=== PATIENT | male | born 1985 | race Caucasian/White ===

== ENCOUNTER 2016-08-05 17:27 | Emergency (ER) | payer MEDICAID ==
[2016-08-05 17:48] VITALS: BP 171/98
[2016-08-05 18:04] LABS: Urine Drugs of Abuse Note Disclamer
[2016-08-05 18:24] LABS: Bilirubin,Urine NEG (Negative); Blood,Urine SM (Negative); Ketones,Urine 80 mg/dL (Negative); Leukocyte Esterase,Urine NEG (Negative); Mucus,Urine 2+ /HPF; Nitrite,Urine NEG (Negative); Protein,Urine <15 mg/dL mg/dL (Negative); Urobilinogen,Urine < 2.0 mg/dL (<2.0); WBC,Urine < 1.0 /HPF (0.0-6.0)
[2016-08-05 20:53] LABS: Basophils % (Auto) 0.8 % (0.0-1.8); Eosinophils % (Auto) 0.4 % (0.0-4.3); Hematocrit 42.4 % (35.5-45.6); Hemoglobin 14.6 gm/dl (11.8-15.2); Mean Corpuscular HGB Conc 34 % (32-34); Mean Corpuscular Hemoglobin 32 pg (28-32); Mean Corpuscular Volume 93 fl (84-94); Platelet Count 250 K/mm3 (140-440); Red Blood Count 4.55 M/mm3 (3.65-5.03); Red Cell Distribution Width 14.4 % (13.2-15.2); White Blood Count 15.2 K/mm3 (4.5-11.0)
[2016-08-05 21:07] LABS: Anion Gap 25 mmol/L; Blood Urea Nitrogen 16 mg/dL (9-20); Calcium 9.2 mg/dL (8.4-10.2); Carbon Dioxide 20 mmol/L (22-30); Glucose 82 mg/dL (75-100); Potassium 3.9 mmol/L (3.6-5.0); Sodium 135 mmol/L (137-145)
--- NOTE | 2016-08-05 22:32 | Emergency Department Report ---
HPI - General Chief Complaint: Psych Time Seen by Provider: 08/05/16 22:17 - HPI HPI: The patient is a 30-year-old male who presents for evaluation of mental health. The patient reports sadness for the past one to 2 weeks, mild to moderate in severity, waxing and waning, constant the past one day. The patient denies suicidal ideations. The patient also denies fever, headache, unexplained weight loss or weight gain, heat or cold intolerance, skin, hair, or nail changes, neuro deficits, homicidal ideations, or auditory or visual hallucinations. ED Past Medical Hx - Past Medical History Hx Psychiatric Treatment: Yes - Surgical History Past Surgical History?: No - Social History Smoking Status: Current Every Day Smoker Substance Use Type: None ED Review of Systems ROS: Stated complaint: MH EVAL Other details as noted in HPI Constitutional: denies: fever ENT: denies: throat or neck pain Respiratory: denies: cough, shortness of breath Cardiovascular: denies: chest pain Endocrine: denies unexplained weight loss or gain Gastrointestinal: denies: abdominal pain, nausea Genitourinary: denies: dysuria Musculoskeletal: denies: leg swelling Skin: denies: rash Neurological: denies: headache Hematological/Lymphatic: denies: easy bleeding or easy bruising Psych: denies hopelessness Physical Exam - Physical Exam Vital Signs: Vital Signs 08/05/16 17:45 Temperature 98.4 F Pulse Rate 125 H Respiratory 20 Rate Blood Pressure 171/98 O2 Sat by Pulse 99 Oximetry Physical Exam: General: well-nourished, well-developed, no acute distress Head: Normocephalic, atraumatic Eyes: normal sclera ENT: Mucous membranes are pale and dry Neck: trachea midline, neck supple, No neck stiffness, no cervical adenopathy Respiratory: Breath sounds equal bilaterally, no wheezing, rales, or rhonchi Cardio: S1 and S2 present, no murmurs, rubs, gallops, capillary refill is delayed Abdomen: Normoactive bowel sounds, soft abdomen, no rigidity, no guarding or rebound tenderness Chest WALL/Back: No tenderness to palpation of the chest wall, no CVA tenderness with percussion Musc: No pitting edema Skin: No rash Neuro: no facial drooping, normal speech Psych: Normal affect, depressed mood, normal insight, competent, no hallucinations ED Course Vital Signs 08/05/16 17:45 Temperature 98.4 F Pulse Rate 125 H Respiratory 20 Rate Blood Pressure 171/98 O2 Sat by Pulse 99 Oximetry ED Medical Decision Making - Lab Data Result diagrams: 08/05/16 20:36 08/05/16 20:36 - Medical Decision Making The patient was seen and examined by myself. The patient is placed on a front desk monitor and continuous pulse ox. On initial evaluation, the patient was found to be in no distress. The patient declines IV fluid resuscitation for treatment of dehydration. Labs are obtained. Lab results are grossly unremarkable. The patient is medically clear. Mental health is consulted. Mental health evaluates the patient and agrees that the patient is negative for findings concerning for risk of harm to herself. The patient was reevaluated and reported that their symptoms were markedly improved. The patient is stable for discharge with outpatient follow-up. The patient is given follow-up and return instructions. The patient expressed understanding and agreed with the plan. The patient is discharged in stable condition. Critical care attestation.: If time is entered above; I have spent that time in minutes in the direct care of this critically ill patient, excluding procedure time. ED Disposition Clinical Impression: Dehydration Depression Qualifiers: Depression Type: unspecified Qualified Code(s): F32.9 - Major depressive disorder, single episode, unspecified Disposition: DISCHARGED TO HOME OR SELFCARE Is pt being admited?: No Does the pt Need Aspirin: No Condition: Stable Time of Disposition: 23:13
== END 2016-08-06 02:02 | disposition home or self-care (01) ==
LOC: ED 17:27
DX: F32.9 Major depressive disorder, single episode, unspecified (principal); E86.0 Dehydration; F17.200 Nicotine dependence, unspecified, uncomplicated
CPT/HCPCS: 36415; 80048; 80307; 81001; 85025; 99284; G0480; 80320

== ENCOUNTER 2016-10-23 21:53 | Emergency (ER) | payer MEDICAID ==
[2016-10-23 23:28] LABS: Basophils % (Auto) 1.7 % (0.0-1.8); Eosinophils % (Auto) 1.2 % (0.0-4.3); Hematocrit 44.2 % (35.5-45.6); Hemoglobin 15.1 gm/dl (11.8-15.2); Mean Corpuscular HGB Conc 34 % (32-34); Mean Corpuscular Hemoglobin 33 pg (28-32); Mean Corpuscular Volume 95 fl (84-94); Platelet Count 207 K/mm3 (140-440); Red Blood Count 4.64 M/mm3 (3.65-5.03); Red Cell Distribution Width 14.3 % (13.2-15.2)
[2016-10-23 23:31] LABS: Anion Gap 25 mmol/L; BUN/Creatinine Ratio 18.88; Blood Urea Nitrogen 17 mg/dL (9-20); Calcium 9.6 mg/dL (8.4-10.2); Carbon Dioxide 23 mmol/L (22-30); Chloride 92.2 mmol/L (98-107); Glucose 108 mg/dL (75-100); Potassium 3.8 mmol/L (3.6-5.0); Sodium 136 mmol/L (137-145)
[2016-10-23 23:38] LABS: Urine Drugs of Abuse Note Disclamer
[2016-10-23 23:54] LABS: Bilirubin,Urine NEG (Negative); Blood,Urine SM (Negative); Ketones,Urine 80 mg/dL (Negative); Leukocyte Esterase,Urine NEG (Negative); Mucus,Urine 3+ /HPF; Nitrite,Urine NEG (Negative)
--- NOTE | 2016-10-24 00:15 | Emergency Department Report ---
HPI - General Chief Complaint: Psych Time Seen by Provider: 10/24/16 00:00 - HPI HPI: Room 16 The patient is a 30-year-old male presenting with a chief complaint of suicidal ideation. The patient states for 3 days he's had suicidal ideation. The patient states 2 days ago he took 15 pills of one of his prescription medications but he states he cannot remember the name. The patient acknowledges having thoughts of wanting to jump off a bridge. Patient denies previous attempts at harm himself before now. Patient currently denies any complaints. Patient states he now feels "fine." Location: Mental state Duration: 3 days Quality: suicidal Severity: Severe Modifying factors: [see above] Context: [see above] Mode of transportation: [not driving] ED Past Medical Hx - Past Medical History Previous Medical History?: Yes Hx Psychiatric Treatment: Yes (depression) - Surgical History Past Surgical History?: No - Family History Family history: no significant - Social History Smoking Status: Never Smoker Substance Use Type: None - Medications Home Medications: Home Medications Medication Instructions Recorded Confirmed Last Taken Type Unobtainable 10/23/16 10/23/16 Unknown History ED Review of Systems ROS: Stated complaint: MH/SUICIDAL THOUGHTS Other details as noted in HPI Comment: All other systems reviewed and negative Constitutional: denies: chills, fever Eyes: denies: eye pain, eye discharge, vision change ENT: denies: ear pain, throat pain Respiratory: denies: cough, shortness of breath, wheezing Cardiovascular: denies: chest pain, palpitations Endocrine: no symptoms reported Gastrointestinal: denies: abdominal pain, nausea, diarrhea Genitourinary: denies: urgency, dysuria Musculoskeletal: denies: back pain, joint swelling, arthralgia Skin: denies: rash, lesions Neurological: denies: headache, weakness, paresthesias Psychiatric: depression, suicidal thoughts. denies: anxiety Hematological/Lymphatic: denies: easy bleeding, easy bruising Physical Exam - Physical Exam Vital Signs: Vital Signs 10/23/16 22:16 Temperature 98.6 F Pulse Rate 130 H Respiratory 12 Rate Blood Pressure 146/101 O2 Sat by Pulse 95 Oximetry Physical Exam: GENERAL: The patient is well-developed well-nourished male lying on stretcher not appearing to be in acute distress. [] HEENT: Normocephalic. Atraumatic. Extraocular motions are intact. Patient has moist mucous membranes. NECK: Supple. Trachea midline CHEST/LUNGS: Clear to auscultation. There is no respiratory distress noted. HEART/CARDIOVASCULAR: Regular. There is no tachycardia. There is no gallop rub or murmur. ABDOMEN: Abdomen is soft, nontender. Patient has normal bowel sounds. There is no abdominal distention. SKIN: There is no rash. There is no edema. There is no diaphoresis. NEURO: The patient is awake, alert, and oriented. The patient is cooperative. The patient has normal speech MUSCULOSKELETAL: There is no evidence of acute injury. ED Course Vital Signs 10/23/16 22:16 Temperature 98.6 F Pulse Rate 130 H Respiratory 12 Rate Blood Pressure 146/101 O2 Sat by Pulse 95 Oximetry ED Medical Decision Making - Lab Data Result diagrams: 10/23/16 22:32 10/23/16 22:32 Laboratory Tests 10/23/16 10/23/16 10/23/16 22:32 22:32 22:32 WBC 13.0 H RBC 4.64 Hgb 15.1 Hct 44.2 MCV 95 H MCH 33 H MCHC 34 RDW 14.3 Plt Count 207 Lymph % (Auto) 10.1 L [place] % (Auto) 10.0 H Eos % (Auto) 1.2 Baso % (Auto) 1.7 Lymph # 1.3 [place] # 1.3 H Eos # 0.2 Baso # 0.2 H Seg Neutrophils % 77.0 H Seg Neutrophils # 10.0 H Sodium 136 L Potassium 3.8 Chloride 92.2 L Carbon Dioxide 23 Anion Gap 25 BUN 17 Creatinine 0.9 Estimated GFR > 60 BUN/Creatinine Ratio 18.88 Glucose 108 H Calcium 9.6 Urine Color Urine Turbidity Urine pH Ur Specific [place] Urine Protein Urine Glucose (UA) Urine Ketones Urine Blood Urine Nitrite Urine Bilirubin Urine Urobilinogen Ur Leukocyte Esterase Urine WBC (Auto) Urine RBC (Auto) Hyaline Casts Urine Mucus Salicylates Urine Opiates Screen Urine Methadone Screen Acetaminophen Ur Barbiturates Screen Ur Phencyclidine Scrn Ur Amphetamines Screen U Benzodiazepines Scrn Urine Cocaine Screen U Marijuana (THC) Screen Drugs of Abuse Note Plasma/Serum Alcohol < 0.01 10/23/16 10/23/16 10/23/16 22:32 22:32 23:38 WBC RBC Hgb Hct MCV MCH MCHC RDW Plt Count Lymph % (Auto) [place] % (Auto) Eos % (Auto) Baso % (Auto) Lymph # [place] # Eos # Baso # Seg Neutrophils % Seg Neutrophils # Sodium Potassium Chloride Carbon Dioxide Anion Gap BUN Creatinine Estimated GFR BUN/Creatinine Ratio Glucose Calcium Urine Color Meme Urine Turbidity Clear Urine pH 6.0 Ur Specific [place] 1.028 Urine Protein 30 mg/dl Urine Glucose (UA) Neg Urine Ketones 80 Urine Blood Sm Urine Nitrite Neg Urine Bilirubin Neg Urine Urobilinogen 2.0 Ur Leukocyte Esterase Neg Urine WBC (Auto) 4.0 Urine RBC (Auto) 6.0 Hyaline Casts 3 Urine Mucus 3+ Salicylates < 0.3 L Urine Opiates Screen Urine Methadone Screen Acetaminophen < 15.0 Ur Barbiturates Screen Ur Phencyclidine Scrn Ur Amphetamines Screen U Benzodiazepines Scrn Urine Cocaine Screen U Marijuana (THC) Screen Drugs of Abuse Note Plasma/Serum Alcohol 10/23/16 23:38 WBC RBC Hgb Hct MCV MCH MCHC RDW Plt Count Lymph % (Auto) [place] % (Auto) Eos % (Auto) Baso % (Auto) Lymph # [place] # Eos # Baso # Seg Neutrophils % Seg Neutrophils # Sodium Potassium Chloride Carbon Dioxide Anion Gap BUN Creatinine Estimated GFR BUN/Creatinine Ratio Glucose Calcium Urine Color Urine Turbidity Urine pH Ur Specific [place] Urine Protein Urine Glucose (UA) Urine Ketones Urine Blood Urine Nitrite Urine Bilirubin Urine Urobilinogen Ur Leukocyte Esterase Urine WBC (Auto) Urine RBC (Auto) Hyaline Casts Urine Mucus Salicylates Urine Opiates Screen Presumptive negative Urine Methadone Screen Presumptive negative Acetaminophen Ur Barbiturates Screen Presumptive negative Ur Phencyclidine Scrn Presumptive negative Ur Amphetamines Screen Presumptive positive U Benzodiazepines Scrn Presumptive negative Urine Cocaine Screen Presumptive negative U Marijuana (THC) Screen Presumptive negative Drugs of Abuse Note Disclamer Plasma/Serum Alcohol - EKG Data -: EKG Interpreted by Ct EKG shows normal: sinus rhythm Rate: tachycardia (115 bpm) - EKG Data When compared to previous EKG there are: previous EKG unavailable Interpretation: other (no ischemic changes seen. QRS 84 ms.) - Differential Diagnosis suicidal ideation Critical care attestation.: If time is entered above; I have spent that time in minutes in the direct care of this critically ill patient, excluding procedure time. ED Disposition Clinical Impression: Suicidal ideation Disposition: DC/TX PSY HOSP/PSY UNIT Is pt being admited?: No Does the pt Need Aspirin: No Condition: Serious Time of Disposition: 00:15 (awaiting acceptance)
[2016-10-24 10:05] VITALS: BP 130/76
--- NOTE | 2016-10-24 17:32 | History and Physical Report ---
INITIAL PSYCHIATRIC CONSULTATION REASON FOR CONSULT: The patient reported some suicidal ideations. HISTORY OF PRESENT ILLNESS: The patient is a 30-year-old male who presented to the ED threatening to jump off the bridge. He reports a recent argument with his mother. He has an unspecified mental illness as he was unable to provide that information. He was a poor historian. During examination, he appeared to be disorganized, but denied any suicidal and homicidal thoughts at the current time. However, he later reported some suicidal ideations, but did not have plan. He was not responding to any internal stimuli. He denies auditory and visual hallucinations. UDS was positive for amphetamines, but he denied any substance use as well. He is currently on a 1013 for suicidal ideations and a plan to jump off the bridge. According to the report, he is disabled. He reports living with his mother. He has a prior history of suicide attempts. However, when inquired about his past history of suicide attempts he denied having a prior history of suicide attempts. He denies any recent significant Loss. Minimal responses; however, upon admission, he was noted to be hopeless and helpless using amphetamines, blunted affect pretty much. Speech was clear and coherent, but very brief, short, very minimal responses. Poor historian like I stated, appeared to be a bit disorganized. Flat affect. Mood is congruent to the affect. Right now, he is calm in his home. He is cooperative, but only provides minimal response when trying to examine him. He is alert and oriented to person, place, time and situation as well. His mood appeared to be kind of depressed. His concentration was impaired. Memory was limited right now. Insight and judgment appear to be poor at the current time. ASSESSMENT: Psychosis, not otherwise specified. PLAN: To continue with the 1013 as ordered, pursue inpatient psych placement. Continue with the current regimen as prescribed and continue to follow during hospitalization. Psychiatry will continue to follow him on 10/25/2016. JOB# [id number] ADAM/RAN
== END 2016-10-24 19:03 ==
LOC: EEVIPCON 21:53 → ED 21:53
DX: R45.851 Suicidal ideations (principal); F32.9 Major depressive disorder, single episode, unspecified
CPT/HCPCS: 36415; 80048; 80307; 81001; 85025; 93005; 93010; 99285; G0480; 80320

== ENCOUNTER 2016-12-23 20:47 | Emergency (ER) | payer MEDICAID ==
[2016-12-23 21:28] LABS: Basophils % (Auto) 0.4 % (0.0-1.8); Eosinophils % (Auto) 0.5 % (0.0-4.3); Hematocrit 42.3 % (35.5-45.6); Hemoglobin 15.1 gm/dl (11.8-15.2); Mean Corpuscular HGB Conc 36 % (32-34); Mean Corpuscular Hemoglobin 33 pg (28-32); Mean Corpuscular Volume 91 fl (84-94); Platelet Count 306 K/mm3 (140-440); Red Blood Count 4.64 M/mm3 (3.65-5.03); Red Cell Distribution Width 13.5 % (13.2-15.2); White Blood Count 10.3 K/mm3 (4.5-11.0)
[2016-12-23] MEDS ORDERED: NACL 0.9% 1000 ML 1,000 ML ONE (21:41)
[2016-12-23] MEDS ORDERED: VALIUM IV ONE (21:42)
[2016-12-23] MEDS ORDERED: NACL 0.9% 1000 ML 2,000 ML IV ONE (21:42)
[2016-12-23 21:43] LABS: Anion Gap 22 mmol/L; Blood Urea Nitrogen 15 mg/dL (9-20); Calcium 9.9 mg/dL (8.4-10.2); Carbon Dioxide 25 mmol/L (22-30); Chloride 89.9 mmol/L (98-107); Glucose 116 mg/dL (75-100); Potassium 3.2 mmol/L (3.6-5.0); Sodium 134 mmol/L (137-145)
--- NOTE | 2016-12-23 21:43 | Emergency Department Report ---
ED General Adult HPI - General Chief complaint: Psych Stated complaint: HEARING VOICES Time Seen by Provider: 12/23/16 21:33 Source: patient, RN notes reviewed, old records reviewed Mode of arrival: Ambulatory Limitations: No Limitations - History of Present Illness Initial comments: This is a 31-year-old male. He is previously unknown to me. The patient has a past medical history of methamphetamine use and depression. The patient presents to the ER today requesting psychiatric evaluation. He is not homicidal or suicidal. He denies access to guns firearms. He reports that he is experiencing audio and visual hallucinations. He reports last consuming methamphetamines approximately one month ago. Symptoms are constant for the past days. they do not have exacerbating or relieving factors. No other complaints. Specifically no headache, neck pain, chest pain, abdominal pain or shortness of breath, no irritative or obstructive urinary symptoms. -: Gradual Consistency: constant Improves with: none Worsens with: none Associated Symptoms: denies other symptoms - Related Data Home Medications Medication Instructions Recorded Confirmed Last Taken Unobtainable 10/23/16 12/23/16 Unknown Allergies Allergy/AdvReac Type Severity Reaction Status Date / Time No Known Allergies Allergy Unverified 08/05/16 17:45 ED Review of Systems ROS: Stated complaint: HEARING VOICES Other details as noted in HPI Constitutional: denies: fever, malaise Eyes: denies: vision change ENT: denies: epistaxis Respiratory: denies: cough Cardiovascular: denies: chest pain Gastrointestinal: denies: abdominal pain Genitourinary: denies: urgency, dysuria Musculoskeletal: denies: back pain, arthralgia, myalgia Skin: denies: rash, lesions Neurological: denies: headache, weakness, numbness, paresthesias Psychiatric: auditory hallucinations, visual hallucinations. denies: homicidal thoughts, suicidal thoughts ED Past Medical Hx - Past Medical History Previous Medical History?: Yes Hx Hypertension: No Hx CVA: No Hx Heart Attack/AMI: No Hx Congestive Heart Failure: No Hx Diabetes: No Hx Deep Vein Thrombosis: No Hx Pulmonary Embolism: No Hx GERD: No Hx Liver Disease: No Hx Renal Disease: No Hx Sickle Cell Disease: No Hx Arthritis: No Hx Headaches / Migraines: No Hx Seizures: No Hx Kidney Stones: No Hx Psychiatric Treatment: Yes (depression) Hx Asthma: No Hx COPD: No Hx Tuberculosis: No Hx Dementia: No Hx HIV: No - Surgical History Past Surgical History?: No Hx Coronary Stent: No Hx Open Heart Surgery: No Hx Pacemaker: No Hx Internal Defibrillator: No Hx Cholecystectomy: No Hx Appendectomy: No Hx Breast Surgery: No - Social History Smoking Status: Never Smoker Substance Use Type: None - Medications Home Medications: Home Medications Medication Instructions Recorded Confirmed Last Taken Type Unobtainable 10/23/16 12/23/16 Unknown History ED Physical Exam - General Limitations: No Limitations General appearance: alert, anxious - Head Head exam: Present: atraumatic, normocephalic - Eye Eye exam: Present: normal appearance, PERRL, EOMI, other (pupils are dilated but constrict to light bilaterally). Absent: nystagmus - ENT ENT exam: Present: normal exam, normal orophraynx, mucous membranes moist, normal external ear exam - Neck Neck exam: Present: normal inspection, full ROM. Absent: tenderness, meningismus - Respiratory Respiratory exam: Present: normal lung sounds bilaterally. Absent: respiratory distress, wheezes, rales, rhonchi, stridor, chest wall tenderness - Cardiovascular Cardiovascular Exam: Present: normal rhythm, tachycardia, normal heart sounds. Absent: systolic murmur, diastolic murmur, rubs, gallop - GI/Abdominal GI/Abdominal exam: Present: soft, normal bowel sounds. Absent: distended, tenderness, guarding, rebound, rigid, pulsatile mass, hernia - Rectal Rectal exam: Present: deferred - Extremities Exam Extremities exam: Present: normal inspection, full ROM, normal capillary refill. Absent: tenderness, pedal edema, joint swelling, calf tenderness - Back Exam Back exam: Present: normal inspection, full ROM. Absent: tenderness, CVA tenderness (R), CVA tenderness (L), muscle spasm, paraspinal tenderness, vertebral tenderness - Neurological Exam Neurological exam: Present: alert, oriented X3, normal gait, other (Extraocular movements intact. Tongue midline. No facial droop. Facial sensation intact to light touch in the V1, V2, V3 distribution bilaterally. 5 and 5 strength in 4 extremities.. Sensation is intact to light touch in 4 extremities.). Absent : motor sensory deficit - Psychiatric Psychiatric exam: Present: flat affect. Absent: homicidal ideation, suicidal ideation - Skin Skin exam: Present: warm, dry, intact, normal color. Absent: rash ED Course Vital Signs 07/19/17 07/19/17 07/19/17 20:54 21:41 21:42 Temperature 98.4 F Pulse Rate 130 H 124 H Respiratory 18 31 H 22 Rate Blood Pressure 152/96 Blood Pressure [Right] O2 Sat by Pulse 98 95 98 Oximetry 12/23/16 12/23/16 12/23/16 22:00 22:30 23:00 Temperature Pulse Rate 105 H 110 H 109 H Respiratory 28 H 23 20 Rate Blood Pressure 134/84 147/97 147/97 Blood Pressure 134/84 [Right] O2 Sat by Pulse 96 97 99 Oximetry 12/23/16 12/24/16 12/24/16 23:30 00:04 00:10 Temperature Pulse Rate 109 H 111 H Respiratory 25 H 14 Rate Blood Pressure 137/89 137/89 137/89 Blood Pressure [Right] O2 Sat by Pulse 97 97 95 Oximetry 12/24/16 12/24/16 12/24/16 00:30 01:00 01:18 Temperature Pulse Rate 102 H 108 H 99 H Respiratory 21 15 20 Rate Blood Pressure 137/89 143/80 Blood Pressure 143/80 [Right] O2 Sat by Pulse 97 95 97 Oximetry 12/24/16 12/24/16 12/24/16 01:30 02:00 02:30 Temperature Pulse Rate 105 H 96 H 94 H Respiratory 24 20 26 H Rate Blood Pressure 143/80 143/80 143/80 Blood Pressure [Right] O2 Sat by Pulse 96 97 96 Oximetry 12/24/16 03:00 Temperature Pulse Rate 96 H Respiratory 17 Rate Blood Pressure 143/80 Blood Pressure [Right] O2 Sat by Pulse 97 Oximetry - Reevaluation(s) Reevaluation #1: 12/23/16 22:41 differential diagnosis: Mood disorder, methamphetamine intoxication, nonspecific psychosis Assessment and plan: 31-year-old male with reported audio and visual hallucinations. He is alert and oriented 3, has a GCS of 15, with an NIH score of 0. He is clinically sober at this time, and walks with a steady gait, and he is neither homicidal nor suicidal. There is no indication to 1013 the patient. He is tachycardic, his pupils are dilated and he is somewhat sweaty. His clinical picture is consistent with sympathomimetic toxicity. He indicates that he is interested in voluntary placement in a psychiatric facility. He is given 2 L of IV fluid, and diazepam, which greatly improved his tachycardia and symptoms. He is currently sleeping comfortably. CK in the , not consistent with rhabdo, as it is less than 5000. His compartments are soft. Additional IV fluids are ordered, repeat CK is ordered. Mental health consult is ordered. Reevaluation #2: 12/24/16 05:24 Patient reevaluated by myself multiple times while in the department. He is pleasant, calm and cooperative. His creatinine kinase continues to decrease. His tachycardia has resolved. Patient is still interested in voluntary placement for psychiatric reasons. At this point in time, I see no immediate medical contraindication to psychiatric admission/evaluation/consultation. The crisis team is informed. ED Medical Decision Making - Lab Data Result diagrams: 12/23/16 21:08 12/23/16 21:08 Vital Signs 12/23/16 12/23/16 12/23/16 20:54 21:41 21:42 Temperature 98.4 F Pulse Rate 130 H 124 H Respiratory 18 31 H 22 Rate Blood Pressure 152/96 Blood Pressure [Right] O2 Sat by Pulse 98 95 98 Oximetry 12/23/16 22:00 Temperature Pulse Rate 105 H Respiratory 28 H Rate Blood Pressure 134/84 Blood Pressure 134/84 [Right] O2 Sat by Pulse 96 Oximetry Lab Results 12/23/16 12/23/16 12/23/16 Range/Units 21:08 21:08 21:08 WBC 10.3 (4.5-11.0) K/mm3 RBC 4.64 (3.65-5.03) M/mm3 Hgb 15.1 (11.8-15.2) gm/dl Hct 42.3 (35.5-45.6) % MCV 91 (84-94) fl MCH 33 H (28-32) pg MCHC 36 H (32-34) % RDW 13.5 (13.2-15.2) % Plt Count 306 (140-440) K/mm3 Lymph % (Auto) 12.7 L (13.4-35.0) % [place] % (Auto) 7.7 H (0.0-7.3) % Eos % (Auto) 0.5 (0.0-4.3) % Baso % (Auto) 0.4 (0.0-1.8) % Lymph # 1.3 (1.2-5.4) K/mm3 [place] # 0.8 (0.0-0.8) K/mm3 Eos # 0.1 (0.0-0.4) K/mm3 Baso # 0.0 (0.0-0.1) K/mm3 Seg Neutrophils % 78.7 H (40.0-70.0) % Seg Neutrophils # 8.1 H (1.8-7.7) K/mm3 PT (12.2-14.9) Sec. INR (0.87-1.13) Sodium 134 L (137-145) mmol/L Potassium 3.2 L (3.6-5.0) mmol/L Chloride 89.9 L (98-107) mmol/L Carbon Dioxide 25 (22-30) mmol/L Anion Gap 22 mmol/L BUN 15 (9-20) mg/dL Creatinine 1.0 (0.8-1.5) mg/dL Estimated GFR > 60 ml/min BUN/Creatinine Ratio 15.00 % Glucose 116 H (75-100) mg/dL Calcium 9.9 (8.4-10.2) mg/dL Total Creatine Kinase (55-170) units/L Troponin T (0.00-0.029) ng/mL TSH (0.270-4.200) mlU/mL Salicylates (2.8-20.0) mg/dL Acetaminophen (10.0-30.0) ug/mL Plasma/Serum Alcohol < 0.01 (0-0.07) gm% 12/23/16 12/23/16 12/23/16 Range/Units 21:45 21:45 21:45 WBC (4.5-11.0) K/mm3 RBC (3.65-5.03) M/mm3 Hgb (11.8-15.2) gm/dl Hct (35.5-45.6) % MCV (84-94) fl MCH (28-32) pg MCHC (32-34) % RDW (13.2-15.2) % Plt Count (140-440) K/mm3 Lymph % (Auto) (13.4-35.0) % [place] % (Auto) (0.0-7.3) % Eos % (Auto) (0.0-4.3) % Baso % (Auto) (0.0-1.8) % Lymph # (1.2-5.4) K/mm3 [place] # (0.0-0.8) K/mm3 Eos # (0.0-0.4) K/mm3 Baso # (0.0-0.1) K/mm3 Seg Neutrophils % (40.0-70.0) % Seg Neutrophils # (1.8-7.7) K/mm3 PT (12.2-14.9) Sec. INR (0.87-1.13) Sodium (137-145) mmol/L Potassium (3.6-5.0) mmol/L Chloride (98-107) mmol/L Carbon Dioxide (22-30) mmol/L Anion Gap mmol/L BUN (9-20) mg/dL Creatinine (0.8-1.5) mg/dL Estimated GFR ml/min BUN/Creatinine Ratio % Glucose (75-100) mg/dL Calcium (8.4-10.2) mg/dL Total Creatine Kinase 2613 H (55-170) units/L Troponin T (0.00-0.029) ng/mL TSH (0.270-4.200) mlU/mL Salicylates < 0.3 L (2.8-20.0) mg/dL Acetaminophen < 15.0 (10.0-30.0) ug/mL Plasma/Serum Alcohol (0-0.07) gm% 12/23/16 12/23/16 12/23/16 Range/Units 21:45 21:45 21:45 WBC (4.5-11.0) K/mm3 RBC (3.65-5.03) M/mm3 Hgb (11.8-15.2) gm/dl Hct (35.5-45.6) % MCV (84-94) fl MCH (28-32) pg MCHC (32-34) % RDW (13.2-15.2) % Plt Count (140-440) K/mm3 Lymph % (Auto) (13.4-35.0) % [place] % (Auto) (0.0-7.3) % Eos % (Auto) (0.0-4.3) % Baso % (Auto) (0.0-1.8) % Lymph # (1.2-5.4) K/mm3 [place] # (0.0-0.8) K/mm3 Eos # (0.0-0.4) K/mm3 Baso # (0.0-0.1) K/mm3 Seg Neutrophils % (40.0-70.0) % Seg Neutrophils # (1.8-7.7) K/mm3 PT 13.4 (12.2-14.9) Sec. INR 1.03 (0.87-1.13) Sodium (137-145) mmol/L Potassium (3.6-5.0) mmol/L Chloride (98-107) mmol/L Carbon Dioxide (22-30) mmol/L Anion Gap mmol/L BUN (9-20) mg/dL Creatinine (0.8-1.5) mg/dL Estimated GFR ml/min BUN/Creatinine Ratio % Glucose (75-100) mg/dL Calcium (8.4-10.2) mg/dL Total Creatine Kinase (55-170) units/L Troponin T < 0.010 (0.00-0.029) ng/mL TSH 0.803 (0.270-4.200) mlU/mL Salicylates (2.8-20.0) mg/dL Acetaminophen (10.0-30.0) ug/mL Plasma/Serum Alcohol (0-0.07) gm% Critical care attestation.: If time is entered above; I have spent that time in minutes in the direct care of this critically ill patient, excluding procedure time. ED Disposition Clinical Impression: Mood disorder Disposition: DC/TX-65 PSY HOSP/PSY UNIT Is pt being admited?: No Does the pt Need Aspirin: No Condition: Good Referrals: PRIMARY CARE, [Primary Care Provider] - 3-5 Days
[2016-12-23 22:12] LABS: INR 1.03 (0.87-1.13)
[2016-12-23] MEDS ORDERED: NACL 0.9% 1000 ML 1,000 ML IV ONE (22:43)
[2016-12-23] MEDS ORDERED: K-DUR PO ONE (22:43)
[2016-12-24 00:33] LABS: Urine Drugs of Abuse Note Disclamer
[2016-12-24 01:20] LABS: Bilirubin,Urine NEG (Negative); Blood,Urine NEG (Negative); Ketones,Urine 20 mg/dL (Negative); Leukocyte Esterase,Urine NEG (Negative); Mucus,Urine 3+ /HPF; Nitrite,Urine NEG (Negative)
[2016-12-24] MEDS ORDERED: NACL 0.9% 1000 ML 2,000 ML IV ONE (01:41)
--- NOTE | 2016-12-24 17:24 | Consultation ---
History of Present Illness - Reason for Consult Consult date: 12/24/16 Reason for consult: Mental Health Evaluation Requesting physician: DWIGHT STEVENSON - Chief Complaint Chief complaint: "I here the voices" - History of Present Psychiatric Illness The patient presents to the ER today requesting psychiatric evaluation. Today patient is calm and cooperative during assessment. He stated seeing people in white coats and hearing voices (hallucinations) the last 2 days. He stated that he has taken risperdal in the past. Patient has poor eye contact and stared at the wall the entire time during the discussion. He stated that he wanted the voices to cease, because they drive him "crazy." He denies SI/HI's and depression symptoms. He denies recreational drug use, but he is positive for amphetamines and barbiturates. He denies excessive alcohol consumption (etoh). Medications and Allergies Allergies Allergy/AdvReac Type Severity Reaction Status Date / Time No Known Allergies Allergy Unverified 08/05/16 17:45 Home Medications Medication Instructions Recorded Confirmed Last Taken Type Unobtainable 10/23/16 12/23/16 Unknown History Past psychiatric history - Past Medical History Past Medical History: No medical history Past Surgical History: No surgical history - past Psychiatric treatment and history Psych: Bipolar, Schizophrenia psychiatric treatment history: Multiple inpatient psy settings. He denies a fam psy hx. Mental Status Exam - Vital signs Last Vital Signs Temp 98.4 F 12/23/16 20:54 Pulse 88 12/24/16 09:35 Resp 16 12/24/16 09:36 BP 139/92 12/24/16 09:35 Pulse Ox 97 12/24/16 09:36 - Exam Narrative exam: ROS: (+) psychosis MSE: Appearance: calm, cooperative Behavior: regular eye contact Speech: regular rate and tone Mood: "okay" Affect: flat Thought Process: circumstantial Thought Content: denies SI/HI's, delusional Motor Activity: lying in bed Cognition: A/Ox 3 Insight: limited Judgment: limited Results Result Diagrams: 12/23/16 21:08 12/23/16 21:08 Abnormal lab results 12/23/16 12/23/16 12/23/16 Range/Units 21:08 21:08 21:45 MCH 33 H (28-32) pg MCHC 36 H (32-34) % Lymph % (Auto) 12.7 L (13.4-35.0) % [place] % (Auto) 7.7 H (0.0-7.3) % Seg Neutrophils % 78.7 H (40.0-70.0) % Seg Neutrophils # 8.1 H (1.8-7.7) K/mm3 Sodium 134 L (137-145) mmol/L Potassium 3.2 L (3.6-5.0) mmol/L Chloride 89.9 L (98-107) mmol/L Glucose 116 H (75-100) mg/dL Total Creatine Kinase 2613 H (55-170) units/L Urine WBC (Auto) (0.0-6.0) /HPF Salicylates (2.8-20.0) mg/dL 12/23/16 12/23/16 12/24/16 Range/Units 21:45 22:48 00:21 MCH (28-32) pg MCHC (32-34) % Lymph % (Auto) (13.4-35.0) % [place] % (Auto) (0.0-7.3) % Seg Neutrophils % (40.0-70.0) % Seg Neutrophils # (1.8-7.7) K/mm3 Sodium (137-145) mmol/L Potassium (3.6-5.0) mmol/L Chloride (98-107) mmol/L Glucose (75-100) mg/dL Total Creatine Kinase 2210 H (55-170) units/L Urine WBC (Auto) 14.0 H (0.0-6.0) /HPF Salicylates < 0.3 L (2.8-20.0) mg/dL 12/24/16 Range/Units 04:19 MCH (28-32) pg MCHC (32-34) % Lymph % (Auto) (13.4-35.0) % [place] % (Auto) (0.0-7.3) % Seg Neutrophils % (40.0-70.0) % Seg Neutrophils # (1.8-7.7) K/mm3 Sodium (137-145) mmol/L Potassium (3.6-5.0) mmol/L Chloride (98-107) mmol/L Glucose (75-100) mg/dL Total Creatine Kinase 1628 H (55-170) units/L Urine WBC (Auto) (0.0-6.0) /HPF Salicylates (2.8-20.0) mg/dL All other labs normal. 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 Today patient is calm and cooperative during assessment. DDx: Schizophrenia Recommendation/Plan: Continue 1013 with placement to inpatient psy services. Start Risperdal 0.5 mg PO HS for psychotic symptoms. Discussed possible metabolic side effects with patient reference risperdal.
[2016-12-24] MEDS: RisperDAL PO SCH (22:20)
--- NOTE | 2016-12-25 17:31 | Progress Note ---
Subjective - Reason for Consult Consult date: 12/25/16 Reason for consult: psychiatric follow up - Chief Complaint Chief complaint: "I'm fine now" The patient presented to the ER for mental health evaluation. Today patient is calm and cooperative during assessment. On initial evaluation, per the record, he stated he was seeing people in white coats and hearing voices (hallucinations ) for the last 2 days. He states he is not hearing voices like he was and he wants to go home. He states he takes Invega Sustenna montly, unknown dose. He gets it from his doctor's office. He is unsure of when he gets his next dose. He reports having 2 episodes per month of distressing psychotic symptoms. He denies recreational drug use, but he is positive for amphetamines and barbiturates. 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 Today patient is calm but guarded during assessment. DDx: Schizophrenia Recommendation/Plan: Continue 1013 with placement to inpatient psy services. Continue Risperdal 0.5 mg PO HS for -psychotic symptoms. Obtain collateral to determine details of current outpatient psychiatric treatment.
[2016-12-25] MEDS: RisperDAL PO SCH (22:16)
--- NOTE | 2016-12-26 16:08 | Progress Note ---
Subjective - Reason for Consult Consult date: 12/26/16 Reason for consult: follow up - Chief Complaint Chief complaint: "I'm doing good." The patient presented to the ER for mental health evaluation. Today patient is calm and cooperative during assessment. On initial evaluation, per the record, he stated he was seeing people in white coats and hearing voices (hallucinations ) for the last 2 days. He states he is not hearing voices like he was and he wants to go home. He states he takes Invega Sustenna montly, unknown dose. Today he reports he has been non compliant with the Invega Sustenna intermittently throughout the last year. He reports having an ACT team. He gets the Invega Sustenna from his doctor's office and believes he has an appointment soon. He is unsure of when he gets his next dose. He reports having 2 episodes per month of distressing psychotic symptoms. He denies recreational drug use, but he is positive for amphetamines and barbiturates. He attributes the positive amphetamines to taking Adderall per prescription. - Exam Narrative exam: ROS: denies AVH MSE: Appearance: calm, cooperative Behavior: regular eye contact Speech: regular rate and tone Mood: "good" Affect: flat Thought Process: circumstantial Thought Content: denies SI/HI. 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 Today patient is calm but guarded during assessment. DDx: Schizophrenia Recommendation/Plan: Continue 1013 and reassess for the next 1-2 days to determine need for inpatient placement. Continue Risperdal 0.5 mg PO HS for - psychotic symptoms. Obtain collateral to determine details of current outpatient psychiatric treatment.
[2016-12-26] MEDS: RisperDAL PO SCH (22:06)
--- NOTE | 2016-12-27 22:26 | Progress Note ---
Subjective - Reason for Consult Consult date: 12/27/16 Reason for consult: follow up - Chief Complaint Chief complaint: "I'm doing good." The patient presented to the ER for mental health evaluation. Today patient is calm and cooperative during assessment. On initial evaluation, per the record, he stated he was seeing people in white coats and hearing voices (hallucinations ) for the last 2 days. He states he is not hearing voices like he was and he wants to go home. He states he takes Invega Sustenna montly, unknown dose. Today he reports he has been non compliant with the Invega Sustenna intermittently throughout the last year. He reports having an ACT team. He gets the Invega Sustenna from his doctor's office and believes he has an appointment soon. He is unsure of when he gets his next dose. He denies recreational drug use, but he is positive for amphetamines and barbiturates. He attributes the positive amphetamines to taking Adderall per prescription. No behavioral distuurbances reported. The phone number he provided (see previous note) is for his caregiver. His caregiver knows the contact information for the ACT team. - Exam Narrative exam: ROS: denies AVH MSE: Appearance: calm, cooperative Behavior: regular eye contact Speech: regular rate and tone Mood: "good" Affect: flat Thought Process: circumstantial Thought Content: denies SI/HI. Motor Activity: ambulatory. 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 Today patient is calm and cooperative but not displaying signs of psychosis and reports no psychotic symptoms. DDx: Schizophrenia Recommendation/Plan: Continue 1013 and reassess for the next 24hours to determine need for inpatient placement. Continue Risperdal 0.5 mg PO HS for - psychotic symptoms. Obtain collateral to determine details of current outpatient psychiatric treatment.
[2016-12-27] MEDS: RisperDAL PO SCH (23:00)
--- NOTE | 2016-12-28 11:55 | Progress Note ---
Subjective - Reason for Consult Consult date: 12/28/16 Reason for consult: Psychiatry Follow-up - Chief Complaint Chief complaint: "No voices at all" The patient presented to the ER for mental health evaluation. Today patient is calm and cooperative during assessment. He was much more forthcoming about the ACT team. Patient is seen by [facility] who manage his medications. Also, patient resides at [facility]. He stated his last Invega injection was November 2016. He denies SI/HI's, AVH's, and depression symptoms. He denies any side effects of his medications. Per the staff, no behavioral disturbances overnight. 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 Today patient is calm and cooperative. Denies SI/HI 's and AVH's. No psychotic symptoms noted. Recommendation/Plan: Evaluate 1013 tomorrow to determine proper dispo. Continue Risperdal 0.5 mg PO HS. Patient is seen by [facility] who provide him with the Invega injection monthly. His last injection was November 2016. N[employer] Pavithra Crain [phone] stated patient can return to his residence.
[2016-12-28] MEDS: RisperDAL PO SCH (22:00)
[2016-12-29 09:39] VITALS: BP 129/76
--- NOTE | 2016-12-29 10:40 | Progress Note ---
Subjective - Reason for Consult Consult date: 12/29/16 Reason for consult: Psychiatry Follow-up - Chief Complaint Chief complaint: "I am well" The patient presented to the ER for mental health evaluation. Today patient is calm and cooperative during assessment. He look forward to being discharged and seeing the ACT Team. He acknowledged that he will receive the Invega injection this month. He denies SI/HI's and AVH's. Per the staff, no behavioral disturbances overnight. 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 Today patient is calm and cooperative. No psychotic symptoms noted. Patient no threat to self or others. Recommendation/Plan: Rescind 1013. Patient is seen by [facility] (outpatient psy services) who provide him with the Invega injection monthly. His last injection was November 2016. Patient Registration Manager Pavithra Crain stated patient can return to his residence.
--- NOTE | 2016-12-29 12:08 | Event Note ---
Date: 12/29/16 Patient's 1013 has been discontinued by psychiatry. The patient is not homicidal or suicidal today, and he is not having hallucinations. He has no complaints, and he is ready to go home. He currently is alert and oriented 3, with a GCS of 15, with an NIH score of 0, and an unremarkable physical examination. Patient will be discharged with instructions to follow up for outpatient invega injection. Vital Signs 12/23/16 12/23/16 12/23/16 20:54 21:41 21:42 Temperature 98.4 F Pulse Rate 130 H 124 H Respiratory 18 31 H 22 Rate Blood Pressure 152/96 Blood Pressure [Right] O2 Sat by Pulse 98 95 98 Oximetry 12/23/16 12/23/16 12/23/16 22:00 22:30 23:00 Temperature Pulse Rate 105 H 110 H 109 H Respiratory 28 H 23 20 Rate Blood Pressure 134/84 147/97 147/97 Blood Pressure 134/84 [Right] O2 Sat by Pulse 96 97 99 Oximetry 12/23/16 12/24/16 12/24/16 23:30 00:04 00:10 Temperature Pulse Rate 109 H 111 H Respiratory 25 H 14 Rate Blood Pressure 137/89 137/89 137/89 Blood Pressure [Right] O2 Sat by Pulse 97 97 95 Oximetry 12/24/16 12/24/16 12/24/16 00:30 01:00 01:18 Temperature Pulse Rate 102 H 108 H 99 H Respiratory 21 15 20 Rate Blood Pressure 137/89 143/80 Blood Pressure 143/80 [Right] O2 Sat by Pulse 97 95 97 Oximetry 12/24/16 12/24/16 12/24/16 01:30 02:00 02:30 Temperature Pulse Rate 105 H 96 H 94 H Respiratory 24 20 26 H Rate Blood Pressure 143/80 143/80 143/80 Blood Pressure [Right] O2 Sat by Pulse 96 97 96 Oximetry 12/24/16 12/24/16 12/24/16 03:00 09:35 09:36 Temperature Pulse Rate 96 H 88 Respiratory 17 16 16 Rate Blood Pressure 143/80 Blood Pressure 139/92 [Right] O2 Sat by Pulse 97 97 97 Oximetry 12/24/16 12/24/16 12/25/16 19:34 22:00 09:39 Temperature 97.9 F 98.5 F Pulse Rate 80 76 Respiratory 18 18 18 Rate Blood Pressure Blood Pressure 130/81 116/57 [Right] O2 Sat by Pulse 98 96 96 Oximetry 12/25/16 12/26/16 12/26/16 22:00 13:28 15:56 Temperature 98.0 F 98 F Pulse Rate 70 61 Respiratory 18 18 18 Rate Blood Pressure Blood Pressure 115/70 121/81 [Right] O2 Sat by Pulse 98 98 100 Oximetry 12/26/16 12/26/16 12/27/16 15:58 16:04 09:00 Temperature Pulse Rate 79 Respiratory 18 18 18 Rate Blood Pressure Blood Pressure 136/74 [Right] O2 Sat by Pulse 99 Oximetry 12/27/16 12/28/16 12/29/16 20:20 08:00 09:38 Temperature 98.4 F 98.8 F 98.1 F Pulse Rate 62 70 58 L Respiratory 18 18 16 Rate Blood Pressure Blood Pressure 155/97 128/86 129/76 [Right] O2 Sat by Pulse 98 100 96 Oximetry Lab Results 12/23/16 12/23/16 12/23/16 Range/Units 21:08 21:08 21:08 WBC 10.3 (4.5-11.0) K/mm3 RBC 4.64 (3.65-5.03) M/mm3 Hgb 15.1 (11.8-15.2) gm/dl Hct 42.3 (35.5-45.6) % MCV 91 (84-94) fl MCH 33 H (28-32) pg MCHC 36 H (32-34) % RDW 13.5 (13.2-15.2) % Plt Count 306 (140-440) K/mm3 Lymph % (Auto) 12.7 L (13.4-35.0) % [place] % (Auto) 7.7 H (0.0-7.3) % Eos % (Auto) 0.5 (0.0-4.3) % Baso % (Auto) 0.4 (0.0-1.8) % Lymph # 1.3 (1.2-5.4) K/mm3 [place] # 0.8 (0.0-0.8) K/mm3 Eos # 0.1 (0.0-0.4) K/mm3 Baso # 0.0 (0.0-0.1) K/mm3 Seg Neutrophils % 78.7 H (40.0-70.0) % Seg Neutrophils # 8.1 H (1.8-7.7) K/mm3 PT (12.2-14.9) Sec. INR (0.87-1.13) Sodium 134 L (137-145) mmol/L Potassium 3.2 L (3.6-5.0) mmol/L Chloride 89.9 L (98-107) mmol/L Carbon Dioxide 25 (22-30) mmol/L Anion Gap 22 mmol/L BUN 15 (9-20) mg/dL Creatinine 1.0 (0.8-1.5) mg/dL Estimated GFR > 60 ml/min BUN/Creatinine Ratio 15.00 % Glucose 116 H (75-100) mg/dL Calcium 9.9 (8.4-10.2) mg/dL Magnesium (1.7-2.3) mg/dL Total Creatine Kinase (55-170) units/L Troponin T (0.00-0.029) ng/mL TSH (0.270-4.200) mlU/mL Urine Color (Yellow) Urine Turbidity (Clear) Urine pH (5.0-7.0) Ur Specific [place] (1.003-1.030) Urine Protein (Negative) mg/dL Urine Glucose (UA) (Negative) mg/dL Urine Ketones (Negative) mg/dL Urine Blood (Negative) Urine Nitrite (Negative) Urine Bilirubin (Negative) Urine Urobilinogen (<2.0) mg/dL Ur Leukocyte Esterase (Negative) Urine WBC (Auto) (0.0-6.0) /HPF Urine RBC (Auto) (0.0-6.0) /HPF U Epithel Cells (Auto) (0-13.0) /HPF Hyaline Casts /LPF Urine Mucus /HPF Salicylates (2.8-20.0) mg/dL Urine Opiates Screen Urine Methadone Screen Acetaminophen (10.0-30.0) ug/mL Ur Barbiturates Screen Ur Phencyclidine Scrn Ur Amphetamines Screen U Benzodiazepines Scrn Urine Cocaine Screen U Marijuana (THC) Screen Drugs of Abuse Note Plasma/Serum Alcohol < 0.01 (0-0.07) gm% 12/23/16 12/23/16 12/23/16 Range/Units 21:45 21:45 21:45 WBC (4.5-11.0) K/mm3 RBC (3.65-5.03) M/mm3 Hgb (11.8-15.2) gm/dl Hct (35.5-45.6) % MCV (84-94) fl MCH (28-32) pg MCHC (32-34) % RDW (13.2-15.2) % Plt Count (140-440) K/mm3 Lymph % (Auto) (13.4-35.0) % [place] % (Auto) (0.0-7.3) % Eos % (Auto) (0.0-4.3) % Baso % (Auto) (0.0-1.8) % Lymph # (1.2-5.4) K/mm3 [place] # (0.0-0.8) K/mm3 Eos # (0.0-0.4) K/mm3 Baso # (0.0-0.1) K/mm3 Seg Neutrophils % (40.0-70.0) % Seg Neutrophils # (1.8-7.7) K/mm3 PT (12.2-14.9) Sec. INR (0.87-1.13) Sodium (137-145) mmol/L Potassium (3.6-5.0) mmol/L Chloride (98-107) mmol/L Carbon Dioxide (22-30) mmol/L Anion Gap mmol/L BUN (9-20) mg/dL Creatinine (0.8-1.5) mg/dL Estimated GFR ml/min BUN/Creatinine Ratio % Glucose (75-100) mg/dL Calcium (8.4-10.2) mg/dL Magnesium (1.7-2.3) mg/dL Total Creatine Kinase 2613 H (55-170) units/L Troponin T (0.00-0.029) ng/mL TSH (0.270-4.200) mlU/mL Urine Color (Yellow) Urine Turbidity (Clear) Urine pH (5.0-7.0) Ur Specific [place] (1.003-1.030) Urine Protein (Negative) mg/dL Urine Glucose (UA) (Negative) mg/dL Urine Ketones (Negative) mg/dL Urine Blood (Negative) Urine Nitrite (Negative) Urine Bilirubin (Negative) Urine Urobilinogen (<2.0) mg/dL Ur Leukocyte Esterase (Negative) Urine WBC (Auto) (0.0-6.0) /HPF Urine RBC (Auto) (0.0-6.0) /HPF U Epithel Cells (Auto) (0-13.0) /HPF Hyaline Casts /LPF Urine Mucus /HPF Salicylates < 0.3 L (2.8-20.0) mg/dL Urine Opiates Screen Urine Methadone Screen Acetaminophen < 15.0 (10.0-30.0) ug/mL Ur Barbiturates Screen Ur Phencyclidine Scrn Ur Amphetamines Screen U Benzodiazepines Scrn Urine Cocaine Screen U Marijuana (THC) Screen Drugs of Abuse Note Plasma/Serum Alcohol (0-0.07) gm% 12/23/16 12/23/16 12/23/16 Range/Units 21:45 21:45 21:45 WBC (4.5-11.0) K/mm3 RBC (3.65-5.03) M/mm3 Hgb (11.8-15.2) gm/dl Hct (35.5-45.6) % MCV (84-94) fl MCH (28-32) pg MCHC (32-34) % RDW (13.2-15.2) % Plt Count (140-440) K/mm3 Lymph % (Auto) (13.4-35.0) % [place] % (Auto) (0.0-7.3) % Eos % (Auto) (0.0-4.3) % Baso % (Auto) (0.0-1.8) % Lymph # (1.2-5.4) K/mm3 [place] # (0.0-0.8) K/mm3 Eos # (0.0-0.4) K/mm3 Baso # (0.0-0.1) K/mm3 Seg Neutrophils % (40.0-70.0) % Seg Neutrophils # (1.8-7.7) K/mm3 PT 13.4 (12.2-14.9) Sec. INR 1.03 (0.87-1.13) Sodium (137-145) mmol/L Potassium (3.6-5.0) mmol/L Chloride (98-107) mmol/L Carbon Dioxide (22-30) mmol/L Anion Gap mmol/L BUN (9-20) mg/dL Creatinine (0.8-1.5) mg/dL Estimated GFR ml/min BUN/Creatinine Ratio % Glucose (75-100) mg/dL Calcium (8.4-10.2) mg/dL Magnesium (1.7-2.3) mg/dL Total Creatine Kinase (55-170) units/L Troponin T < 0.010 (0.00-0.029) ng/mL TSH 0.803 (0.270-4.200) mlU/mL Urine Color (Yellow) Urine Turbidity (Clear) Urine pH (5.0-7.0) Ur Specific [place] (1.003-1.030) Urine Protein (Negative) mg/dL Urine Glucose (UA) (Negative) mg/dL Urine Ketones (Negative) mg/dL Urine Blood (Negative) Urine Nitrite (Negative) Urine Bilirubin (Negative) Urine Urobilinogen (<2.0) mg/dL Ur Leukocyte Esterase (Negative) Urine WBC (Auto) (0.0-6.0) /HPF Urine RBC (Auto) (0.0-6.0) /HPF U Epithel Cells (Auto) (0-13.0) /HPF Hyaline Casts /LPF Urine Mucus /HPF Salicylates (2.8-20.0) mg/dL Urine Opiates Screen Urine Methadone Screen Acetaminophen (10.0-30.0) ug/mL Ur Barbiturates Screen Ur Phencyclidine Scrn Ur Amphetamines Screen U Benzodiazepines Scrn Urine Cocaine Screen U Marijuana (THC) Screen Drugs of Abuse Note Plasma/Serum Alcohol (0-0.07) gm% 12/23/16 12/23/16 12/24/16 Range/Units 22:48 22:48 00:21 WBC (4.5-11.0) K/mm3 RBC (3.65-5.03) M/mm3 Hgb (11.8-15.2) gm/dl Hct (35.5-45.6) % MCV (84-94) fl MCH (28-32) pg MCHC (32-34) % RDW (13.2-15.2) % Plt Count (140-440) K/mm3 Lymph % (Auto) (13.4-35.0) % [place] % (Auto) (0.0-7.3) % Eos % (Auto) (0.0-4.3) % Baso % (Auto) (0.0-1.8) % Lymph # (1.2-5.4) K/mm3 [place] # (0.0-0.8) K/mm3 Eos # (0.0-0.4) K/mm3 Baso # (0.0-0.1) K/mm3 Seg Neutrophils % (40.0-70.0) % Seg Neutrophils # (1.8-7.7) K/mm3 PT (12.2-14.9) Sec. INR (0.87-1.13) Sodium (137-145) mmol/L Potassium (3.6-5.0) mmol/L Chloride (98-107) mmol/L Carbon Dioxide (22-30) mmol/L Anion Gap mmol/L BUN (9-20) mg/dL Creatinine (0.8-1.5) mg/dL Estimated GFR ml/min BUN/Creatinine Ratio % Glucose (75-100) mg/dL Calcium (8.4-10.2) mg/dL Magnesium 2.10 (1.7-2.3) mg/dL Total Creatine Kinase 2210 H (55-170) units/L Troponin T (0.00-0.029) ng/mL TSH (0.270-4.200) mlU/mL Urine Color Meme (Yellow) Urine Turbidity Clear (Clear) Urine pH 5.0 (5.0-7.0) Ur Specific [place] 1.029 (1.003-1.030) Urine Protein 100 mg/dl (Negative) mg/dL Urine Glucose (UA) Neg (Negative) mg/dL Urine Ketones 20 (Negative) mg/dL Urine Blood Neg (Negative) Urine Nitrite Neg (Negative) Urine Bilirubin Neg (Negative) Urine Urobilinogen 4.0 (<2.0) mg/dL Ur Leukocyte Esterase Neg (Negative) Urine WBC (Auto) 14.0 H (0.0-6.0) /HPF Urine RBC (Auto) 4.0 (0.0-6.0) /HPF U Epithel Cells (Auto) 1.0 (0-13.0) /HPF Hyaline Casts 47 /LPF Urine Mucus 3+ /HPF Salicylates (2.8-20.0) mg/dL Urine Opiates Screen Urine Methadone Screen Acetaminophen (10.0-30.0) ug/mL Ur Barbiturates Screen Ur Phencyclidine Scrn Ur Amphetamines Screen U Benzodiazepines Scrn Urine Cocaine Screen U Marijuana (THC) Screen Drugs of Abuse Note Plasma/Serum Alcohol (0-0.07) gm% 12/24/16 12/24/16 Range/Units 00:21 04:19 WBC (4.5-11.0) K/mm3 RBC (3.65-5.03) M/mm3 Hgb (11.8-15.2) gm/dl Hct (35.5-45.6) % MCV (84-94) fl MCH (28-32) pg MCHC (32-34) % RDW (13.2-15.2) % Plt Count (140-440) K/mm3 Lymph % (Auto) (13.4-35.0) % [place] % (Auto) (0.0-7.3) % Eos % (Auto) (0.0-4.3) % Baso % (Auto) (0.0-1.8) % Lymph # (1.2-5.4) K/mm3 [place] # (0.0-0.8) K/mm3 Eos # (0.0-0.4) K/mm3 Baso # (0.0-0.1) K/mm3 Seg Neutrophils % (40.0-70.0) % Seg Neutrophils # (1.8-7.7) K/mm3 PT (12.2-14.9) Sec. INR (0.87-1.13) Sodium (137-145) mmol/L Potassium (3.6-5.0) mmol/L Chloride (98-107) mmol/L Carbon Dioxide (22-30) mmol/L Anion Gap mmol/L BUN (9-20) mg/dL Creatinine (0.8-1.5) mg/dL Estimated GFR ml/min BUN/Creatinine Ratio % Glucose (75-100) mg/dL Calcium (8.4-10.2) mg/dL Magnesium (1.7-2.3) mg/dL Total Creatine Kinase 1628 H (55-170) units/L Troponin T (0.00-0.029) ng/mL TSH (0.270-4.200) mlU/mL Urine Color (Yellow) Urine Turbidity (Clear) Urine pH (5.0-7.0) Ur Specific [place] (1.003-1.030) Urine Protein (Negative) mg/dL Urine Glucose (UA) (Negative) mg/dL Urine Ketones (Negative) mg/dL Urine Blood (Negative) Urine Nitrite (Negative) Urine Bilirubin (Negative) Urine Urobilinogen (<2.0) mg/dL Ur Leukocyte Esterase (Negative) Urine WBC (Auto) (0.0-6.0) /HPF Urine RBC (Auto) (0.0-6.0) /HPF U Epithel Cells (Auto) (0-13.0) /HPF Hyaline Casts /LPF Urine Mucus /HPF Salicylates (2.8-20.0) mg/dL Urine Opiates Screen Presumptive negative Urine Methadone Screen Presumptive negative Acetaminophen (10.0-30.0) ug/mL Ur Barbiturates Screen Presumptive positive Ur Phencyclidine Scrn Presumptive negative Ur Amphetamines Screen Presumptive positive U Benzodiazepines Scrn Presumptive negative Urine Cocaine Screen Presumptive negative U Marijuana (THC) Screen Presumptive negative Drugs of Abuse Note Disclamer Plasma/Serum Alcohol (0-0.07) gm%
== END 2016-12-29 15:00 | disposition home or self-care (01) ==
LOC: EEVIPCON 20:47 → ED 20:47
DX: F39 Unspecified mood [affective] disorder (principal); F32.9 Major depressive disorder, single episode, unspecified
CPT/HCPCS: 36415; 80048; 80307; 81001; 82550; 83735; 84443; 84484; 85025; 85610; 93005; 93010; 96361; 96374; 99285; G0480; J3360; J7030; 80320

== ENCOUNTER 2017-01-04 06:38 | Emergency (ER) | payer MEDICAID ==
[2017-01-04 08:38] LABS: Basophils % (Auto) 0.5 % (0.0-1.8); Hematocrit 46.9 % (35.5-45.6); Hemoglobin 16.1 gm/dl (11.8-15.2); Mean Corpuscular HGB Conc 34 % (32-34); Mean Corpuscular Hemoglobin 32 pg (28-32); Mean Corpuscular Volume 93 fl (84-94); Platelet Count 276 K/mm3 (140-440); Red Blood Count 5.07 M/mm3 (3.65-5.03); Red Cell Distribution Width 13.4 % (13.2-15.2); White Blood Count 8.2 K/mm3 (4.5-11.0)
[2017-01-04 08:45] LABS: Urine Drugs of Abuse Note Disclamer
[2017-01-04 08:50] LABS: BUN/Creatinine Ratio 16.25; Blood Urea Nitrogen 13 mg/dL (9-20); Carbon Dioxide 28 mmol/L (22-30); Glucose 115 mg/dL (75-100)
[2017-01-04 08:51] LABS: Anion Gap 20 mmol/L; Chloride 90.2 mmol/L (98-107); Potassium 4.1 mmol/L (3.6-5.0); Sodium 134 mmol/L (137-145)
[2017-01-04 09:02] LABS: Bacteria,Urine 1+ /HPF (Negative); Bilirubin,Urine NEG (Negative); Blood,Urine SM (Negative); Ketones,Urine TR mg/dL (Negative); Leukocyte Esterase,Urine NEG (Negative); Mucus,Urine 3+ /HPF; Nitrite,Urine NEG (Negative)
--- NOTE | 2017-01-04 13:43 | Consultation ---
History of Present Illness - Reason for Consult Consult date: 01/04/17 Reason for consult: Mental Health Evaluation - Chief Complaint Chief complaint: "I am suicidal" - History of Present Psychiatric Illness 31 y.o. white male who is known to me presenting to [facility] for SI's and AH's. Today patient was calm and cooperative during the assessment. He stated that he is suicidal because of issues at his alf ([place]). He stated that he does not have a plan at this time. He stated hearing voices, but they are mild at this time. Patient is pacing around in his room and staring at the mckeon, possible responding to some type of stimuli. He stated that he receive the monthly Invega injection from [facility] in [place], [place]. He denies receiving his December 2016 injection. He did not want to discuss the issues at [place] his alf. This is the same type of behavior he presented with on his last admission early December 2016. He denies HI's, VH's, and depression. He denies recreational drug use, but positive for amphetamines. He denies alcohol consumption (etoh). Medications and Allergies Allergies Allergy/AdvReac Type Severity Reaction Status Date / Time No Known Allergies Allergy Unverified 08/05/16 17:45 Home Medications Medication Instructions Recorded Confirmed Last Taken Type Unobtainable 10/23/16 01/04/17 Unknown History Past psychiatric history - Past Medical History Past Medical History: No medical history Past Surgical History: No surgical history - past Psychiatric treatment and history Psych: Schizophrenia psychiatric treatment history: Multiple inpatient psy settings. Seen by [facility] in [place], [place]. - Social History Social history: other (Reside at [facility] a alf) Mental Status Exam - Vital signs Last Vital Signs Temp 97.9 F 01/04/17 07:38 Pulse 117 H 01/04/17 07:38 Resp 18 01/04/17 07:38 BP 147/107 01/04/17 07:38 Pulse Ox 99 01/04/17 07:38 - Exam Narrative exam: ROS: (+) psychosis, (-) depression MSE: Appearance: calm, cooperative Behavior: regular eye contact Speech: regular rate and tone Mood: "don't feel well" Affect: labile Thought Process: circumstantial Thought Content: denies HI and VHs Motor Activity: sitting up in the bed Cognition: A/Ox 3 Insight: limited Judgment: limited Results Result Diagrams: 01/04/17 08:24 01/04/17 08:24 Abnormal lab results 01/04/17 01/04/17 Range/Units 08:24 08:24 RBC 5.07 H (3.65-5.03) M/mm3 Hgb 16.1 H (11.8-15.2) gm/dl Hct 46.9 H (35.5-45.6) % [place] % (Auto) 10.9 H (0.0-7.3) % [place] # 0.9 H (0.0-0.8) K/mm3 Sodium 134 L (137-145) mmol/L Chloride 90.2 L (98-107) mmol/L Glucose 115 H (75-100) mg/dL All other labs normal. Assessment and Plan Assessment and plan: Impression: Historical Dx: Schizophrenia. Unspecified Psychosis DO, Possibly Substance Induced Psychosis. Today patient was calm and cooperative during the assessment. Active AH's. DDx: R/O Bipolar, Schizoaffective DO Recommendation/Plan: Continue 1013 with placement to inpatient psy services. Start Risperdal 1 mg PO BID for psychotic symptoms/mood and Cogentin 0.5 mg PO BId for EPS prevention. Discussed possible metabolic side effects with patient reference Risperdal.
[2017-01-04] MEDS: COGENTIN PO SCH ×2 (14:50→22:29)
[2017-01-04] MEDS: RisperDAL PO SCH ×2 (14:50→22:30)
--- NOTE | 2017-01-05 07:47 | Progress Note ---
Subjective - Reason for Consult Consult date: 01/05/17 Reason for consult: Psychiatry Follow-up - Chief Complaint Chief complaint: "How are you" 31 y.o. white male who is known to me presenting to [facility] for SI's and AH's. Today patient was calm and cooperative during the assessment. He stated having a better day yesterday and would like to be discharged. He didn't want to discuss issues that he may have at [place]. He stated, "My issues are more life stuff." He could not tell me when he is scheduled to receive the Invega injection. He was able to state that [facility] in [place], [place] administer the injection. He denies SI/HI's and AVH's. Mental Status Exam - Vital signs Last Vital Signs Temp 97.5 F L 01/05/17 01:46 Pulse 69 01/05/17 01:46 Resp 14 01/05/17 01:46 BP 119/79 01/05/17 01:46 Pulse Ox 96 01/05/17 01:46 - Exam Narrative exam: MSE: Appearance: calm, cooperative Behavior: regular eye contact Speech: regular rate and tone Mood: "okay" Affect: labile Thought Process: circumstantial Thought Content: denies HI and VHs Motor Activity: lying in bed Cognition: A/Ox 3 Insight: limited Judgment: limited Assessment and Plan Impression: Historical Dx: Schizophrenia. Unspecified Psychosis DO, Possibly Substance Induced Psychosis. Today patient was calm and cooperative during the assessment. Recommendation/Plan: Continue 1013 with placement to inpatient psy services. Continue Risperdal 1 mg PO BID for psychotic symptoms/mood and Cogentin 0.5 mg PO BId for EPS prevention. Discussed possible metabolic side effects with patient reference Risperdal.
--- NOTE | 2017-01-05 09:36 | Emergency Department Report ---
HPI - General Chief Complaint: Psych Time Seen by Provider: 01/04/17 09:00 - HPI HPI: 31 y.o male well known to this ER due to multiple visits for depression and voicing suicidal ideations. He has a histor of schizophrenia. He presents to ER today c/o suicidal thought. no plan, states he was feeling down, depressed and didn't want to live anymore. pt doesn't have a plan. Patient is not cooperative to history and just wants to sleep in room, nurse called into room to help stimulate patient to discuss his visit. He has been drinking, and denies doing drug. patient was recently in hospital for same, and states he has not been compliant with his medications, mainly his injection. He states he doesn't like where he currently resides but would not elaborate more. He is calm but not very coorperative. He denies HI, denies visual hallucinations, auditory hallucinations, or delusions. ED Past Medical Hx - Past Medical History Previous Medical History?: Yes Hx Hypertension: No Hx CVA: No Hx Heart Attack/AMI: No Hx Congestive Heart Failure: No Hx Diabetes: No Hx Deep Vein Thrombosis: No Hx Pulmonary Embolism: No Hx GERD: No Hx Liver Disease: No Hx Renal Disease: No Hx Sickle Cell Disease: No Hx Arthritis: No Hx Headaches / Migraines: No Hx Seizures: No Hx Kidney Stones: No Hx Psychiatric Treatment: Yes (depression) Hx Asthma: No Hx COPD: No Hx Tuberculosis: No Hx Dementia: No Hx HIV: No - Surgical History Past Surgical History?: No Hx Coronary Stent: No Hx Open Heart Surgery: No Hx Pacemaker: No Hx Internal Defibrillator: No Hx Cholecystectomy: No Hx Appendectomy: No Hx Breast Surgery: No - Social History Smoking Status: Current Some Day Smoker Substance Use Type: None - Medications Home Medications: Home Medications Medication Instructions Recorded Confirmed Last Taken Type Unobtainable 10/23/16 01/04/17 Unknown History ED Review of Systems ROS: Stated complaint: MENTAL HEALTH EVALUATION Other details as noted in HPI Comment: All other systems reviewed and negative Constitutional: no symptoms reported Respiratory: no symptoms reported Psychiatric: anxiety, depression, suicidal thoughts Physical Exam - Physical Exam Vital Signs: Vital Signs 01/04/17 01/05/17 01/05/17 07:38 01:46 07:59 Temperature 97.9 F 97.5 F L 98.3 F Pulse Rate 117 H 69 95 H Respiratory 18 14 18 Rate Blood Pressure 147/107 Blood Pressure 119/79 133/96 [Right] O2 Sat by Pulse 99 96 100 Oximetry Physical Exam: GENERAL APPEARANCE: Well developed, well nourished, in no acute distress. VITAL SIGNS: reviewed SKIN: Inspection of the skin reveals no rashes, ulcerations or petechiae. HEENT: The sclerae were anicteric and conjunctivae were pink and moist. Extraocular movements were intact and pupils were equal, round, and reactive to light with normal accommodation. External inspection of the ears and nose showed no scars, lesions, or masses. Lips, teeth, and gums showed normal mucosa. The oral mucosa, hard and soft palate, tongue and posterior pharynx were normal. NECK: Supple and symmetric. There was no thyroid enlargement, and no tenderness , or masses were felt. LUNGS: Auscultation of the lungs revealed normal breath sounds without any other adventitious sounds or rubs. CARDIOVASCULAR: There was a regular rate and rhythm without any murmurs, gallops , rubs. ABDOMEN: Soft and nontender with normal bowel sounds. LYMPH NODES: No lymphadenopathy was appreciated in the neck, axillae or groin. MUSCULOSKELETAL: Gait was normal. There was no tenderness or effusions noted. Muscle strength and tone were normal. EXTREMITIES: No cyanosis, clubbing or edema. NEUROLOGIC: Alert and oriented x 3. flat affect. PSYCH: Flat affect, +si without plan, no HI, no visual or auditory hallucinations, no delusions. ED Course Vital Signs 01/04/17 01/05/17 01/05/17 07:38 01:46 07:59 Temperature 97.9 F 97.5 F L 98.3 F Pulse Rate 117 H 69 95 H Respiratory 18 14 18 Rate Blood Pressure 147/107 Blood Pressure 119/79 133/96 [Right] O2 Sat by Pulse 99 96 100 Oximetry - Reevaluation(s) Reevaluation #1: 10-13 done by patience lawson due to pos SI, with no plan, but will defer to psych team for dispo. ED Medical Decision Making - Lab Data Result diagrams: 01/04/17 08:24 01/04/17 08:24 Critical care attestation.: If time is entered above; I have spent that time in minutes in the direct care of this critically ill patient, excluding procedure time. ED Disposition Clinical Impression: Suicidal ideations, Mood disorder Disposition: [id number] PSY HOSP/PSY UNIT Is pt being admited?: No Does the pt Need Aspirin: No Condition: Stable Referrals: PRIMARY CARE, [Primary Care Provider] - 3-5 Days
[2017-01-05] MEDS: RisperDAL PO SCH ×2 (11:30→21:35)
[2017-01-05] MEDS: COGENTIN PO SCH ×2 (11:30→21:35)
[2017-01-06] MEDS: RisperDAL PO SCH (10:30)
[2017-01-06] MEDS: COGENTIN PO SCH (10:30)
--- NOTE | 2017-01-06 15:42 | Progress Note ---
Subjective - Reason for Consult Consult date: 01/06/17 Reason for consult: follow up - Chief Complaint Chief complaint: "I'm good." 31 y.o. white male who is known to me presenting to [facility] for SI's and AH's. Today patient was calm and cooperative during the assessment. He states he needs his Invega injection. He was able to state that [facility] in [place], [place] administer the injection. He denies SI/HI's and AVH's. He discussed how his problems are related to his residence. He stated he wants to live in something like a [place] for mentally [place] individuals. He states he might need this because his memory is not that great. He is concerned he will have dementia like his father. He has an ACT team. Per the staff, no behavioral disturbances overnight. 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 Today patient is calm and cooperative. No psychotic symptoms noted. There are no acute safety concerns. Patient needs Invega, which is not available at this facility. It is available from mental health services through which he is connected. Recommendation/Plan: Rescind 1013. Patient is seen by [facility] (outpatient psy services) [phone] who provide him with the Invega injection monthly. His last injection was November 2016. Verify his fdc director does not have concerns about his returning.
[2017-01-06 21:25] VITALS: BP 126/85
== END 2017-01-06 21:23 ==
LOC: ED 06:38 → EEVIPCON 06:38 → ED 01-06 21:23
DX: F20.9 Schizophrenia, unspecified (principal); F32.9 Major depressive disorder, single episode, unspecified; F17.210 Nicotine dependence, cigarettes, uncomplicated; F39 Unspecified mood [affective] disorder
CPT/HCPCS: 36415; 80048; 80307; 81001; 85025; 99285; G0480; 80320

== ENCOUNTER 2017-01-22 04:57 | Emergency (ER) | payer MEDICAID | END 2017-01-22 05:30 | disposition left against medical advice (07) | LOC: ED 04:57 | DX: R45.851 Suicidal ideations (principal); Z53.21 Procedure and treatment not carried out due to patient leaving prior to being seen by health care provider ==

== ENCOUNTER 2017-01-22 06:55 | Emergency (ER) | payer MEDICAID ==
--- NOTE | 2017-01-22 07:24 | Emergency Department Report ---
HPI - General Chief Complaint: Psych Time Seen by Provider: 01/22/17 07:12 - HPI HPI: 31 y.o male well known to this ER due to multiple visits for depression and voicing suicidal ideations. He has a histor of schizophrenia. He presents to ER today c/o having a panic attack. patient just left er earlier today. states he felt very anxious and had a feeling of darkness. denies any si, hi. ED Past Medical Hx - Past Medical History Hx Hypertension: No Hx CVA: No Hx Heart Attack/AMI: No Hx Congestive Heart Failure: No Hx Diabetes: No Hx Deep Vein Thrombosis: No Hx Pulmonary Embolism: No Hx GERD: No Hx Liver Disease: No Hx Renal Disease: No Hx Sickle Cell Disease: No Hx Arthritis: No Hx Headaches / Migraines: No Hx Seizures: No Hx Kidney Stones: No Hx Psychiatric Treatment: Yes (depression) Hx Asthma: No Hx COPD: No Hx Tuberculosis: No Hx Dementia: No Hx HIV: No - Surgical History Hx Coronary Stent: No Hx Open Heart Surgery: No Hx Pacemaker: No Hx Internal Defibrillator: No Hx Cholecystectomy: No Hx Appendectomy: No Hx Breast Surgery: No - Family History Family history: hypertension - Social History Smoking Status: Current Some Day Smoker Substance Use Type: None - Medications Home Medications: Home Medications Medication Instructions Recorded Confirmed Last Taken Type FLUoxetine [PROzac] 20 mg PO QDAY 01/22/17 01/22/17 Unknown History Paliperidone Palmitate [Invega 39 mg IM Q4W 01/22/17 01/22/17 Unknown History Sustenna] ED Review of Systems ROS: Stated complaint: SUICIDAL THOUGHTS Other details as noted in HPI Comment: All other systems reviewed and negative Endocrine: no symptoms reported Psychiatric: anxiety, depression, suicidal thoughts Physical Exam - Physical Exam Vital Signs: Vital Signs 01/22/17 07:00 Respiratory 16 Rate Physical Exam: gen: alert and oriented x3, Tearful heent: perrla, eomi cv: rrr, nl s1, s2 lungs: cta bila abd: s,nt,nd, pos bs ext: no edema gu: pt refused neuro: no deficits psych: anxious skin: normal turgor ED Course Vital Signs 01/22/17 07:00 Respiratory 16 Rate - Reevaluation(s) Reevaluation #1: 01/22/17 07:49 seen by psych and d/c back home was recommended. patient agrees with plan. Critical care attestation.: If time is entered above; I have spent that time in minutes in the direct care of this critically ill patient, excluding procedure time. ED Disposition Clinical Impression: Anxiety and depression Disposition: DC-01 TO HOME OR SELFCARE Is pt being admited?: No Does the pt Need Aspirin: No Condition: Stable
[2017-01-22 07:25] VITALS: BP 159/105
[2017-01-22 08:00] LABS: Urine Drugs of Abuse Note Disclamer
[2017-01-22 08:08] LABS: Basophils % (Auto) 0.5 % (0.0-1.8); Eosinophils % (Auto) 1.3 % (0.0-4.3); Hematocrit 41.8 % (35.5-45.6); Hemoglobin 14.5 gm/dl (11.8-15.2); Mean Corpuscular HGB Conc 35 % (32-34); Mean Corpuscular Hemoglobin 32 pg (28-32); Mean Corpuscular Volume 93 fl (84-94); Platelet Count 209 K/mm3 (140-440); Red Blood Count 4.49 M/mm3 (3.65-5.03); Red Cell Distribution Width 14.1 % (13.2-15.2); White Blood Count 8.4 K/mm3 (4.5-11.0)
[2017-01-22 08:10] LABS: Bilirubin,Urine NEG (Negative); Blood,Urine NEG (Negative); Ketones,Urine NEG (Negative); Leukocyte Esterase,Urine NEG (Negative); Mucus,Urine FEW /HPF; Nitrite,Urine NEG (Negative); Protein,Urine <15 mg/dL mg/dL (Negative); Urobilinogen,Urine < 2.0 mg/dL (<2.0); WBC,Urine < 1.0 /HPF (0.0-6.0)
[2017-01-22 08:12] LABS: Alanine Aminotransferase 41 units/L (7-56); Albumin 4.1 g/dL (3.9-5); Albumin/Globulin Ratio 1.3 %; Alkaline Phosphatase 74 units/L (35-129); Anion Gap 16 mmol/L; Blood Urea Nitrogen 10 mg/dL (9-20); Calcium 9.1 mg/dL (8.4-10.2); Carbon Dioxide 26 mmol/L (22-30); Chloride 99.9 mmol/L (98-107); Glucose 97 mg/dL (75-100); Potassium 4.1 mmol/L (3.6-5.0); Sodium 138 mmol/L (137-145); Total Protein 7.2 g/dL (6.3-8.2)
== END 2017-01-22 07:56 | disposition home or self-care (01) ==
LOC: ED 06:55
DX: F41.9 Anxiety disorder, unspecified (principal); F32.9 Major depressive disorder, single episode, unspecified; Z72.0 Tobacco use
CPT/HCPCS: 36415; 80053; 80307; 81001; 85025; 99283; G0480; 80320

== ENCOUNTER 2017-01-24 20:52 | Emergency (ER) | payer MEDICAID | END 2017-01-24 22:00 | disposition left against medical advice (07) | LOC: ED 20:52 | DX: F41.9 Anxiety disorder, unspecified (principal); Z53.21 Procedure and treatment not carried out due to patient leaving prior to being seen by health care provider ==

== ENCOUNTER 2017-04-05 18:50 | Emergency (ER) | payer MEDICAID ==
[2017-04-05 19:29] VITALS: BP 135/94
[2017-04-05] MEDS ORDERED: MOTRIN PO ONE (23:17)
[2017-04-05] MEDS ORDERED: TYLENOL #3 PO ONE (23:20)
--- NOTE | 2017-04-05 23:21 | Emergency Department Report ---
ED ENT HPI - General Chief complaint: Dental/Oral Stated complaint: FACE PAIN Time Seen by Provider: 04/05/17 22:32 Source: patient Mode of arrival: Ambulatory Limitations: No Limitations - History of Present Illness Initial comments: 31-year-old male complaining of left-sided toothache radiating up jaw for one week. Denies fevers chills speaking in full sentences no audible wheezing or stridor no visible trismus or drooling. States he has a cracked tooth in his rear left molar region. States this has been ongoing for 1 week and is slightly worse with consumption of cold or hot food items. Has not yet seen a dentist but states he has an appointment to see a dentist tomorrow. Awake alert and oriented 3. States he was using Tylenol with minimal relief of his pain. MD complaint: tooth pain Onset/Timin -: week(s) Location: other (left side jaw) 1 - Pain radiating from this tooth Severity: moderate Severity scale (0 -10): 6 Quality: aching Consistency: constant Improves with: none Context- Dental: history of dental caries, poor dental care Associated Symptoms: gum swelling, toothache - Related Data Home Medications Medication Instructions Recorded Confirmed Last Taken FLUoxetine [PROzac] 20 mg PO QDAY 01/22/17 01/22/17 Unknown Paliperidone Palmitate [Invega 39 mg IM Q4W 01/22/17 01/22/17 Unknown Sustenna] Previous Rx's Medication Instructions Recorded Last Taken Type Acetaminophen/Codeine [Tylenol 1 tab PO Q6H PRN #9 tab 04/05/17 Unknown Rx /Codeine # 3 tab] Amoxicillin [Trimox CAP] 500 mg PO Q8H #30 capsule 04/05/17 Unknown Rx Chlorhexidine Mouthwash [Peridex] 10 ml MM BID #1 bottle 04/05/17 Unknown Rx Ibuprofen [Motrin] 800 mg PO Q8HR PRN #30 tablet 04/05/17 Unknown Rx Allergies Allergy/AdvReac Type Severity Reaction Status Date / Time No Known Allergies Allergy Verified 01/22/17 06:56 ED Dental HPI - General Chief complaint: Dental/Oral Stated complaint: FACE PAIN Time Seen by Provider: 04/05/17 22:32 Source: patient Mode of arrival: Ambulatory Limitations: No Limitations - Related Data Home Medications Medication Instructions Recorded Confirmed Last Taken FLUoxetine [PROzac] 20 mg PO QDAY 01/22/17 01/22/17 Unknown Paliperidone Palmitate [Invega 39 mg IM Q4W 01/22/17 01/22/17 Unknown Sustenna] Previous Rx's Medication Instructions Recorded Last Taken Type Acetaminophen/Codeine [Tylenol 1 tab PO Q6H PRN #9 tab 04/05/17 Unknown Rx /Codeine # 3 tab] Amoxicillin [Trimox CAP] 500 mg PO Q8H #30 capsule 04/05/17 Unknown Rx Chlorhexidine Mouthwash [Peridex] 10 ml MM BID #1 bottle 04/05/17 Unknown Rx Ibuprofen [Motrin] 800 mg PO Q8HR PRN #30 tablet 04/05/17 Unknown Rx Allergies Allergy/AdvReac Type Severity Reaction Status Date / Time No Known Allergies Allergy Verified 01/22/17 06:56 ED Review of Systems ROS: Stated complaint: FACE PAIN Other details as noted in HPI Constitutional: denies: chills, fever Eyes: denies: eye pain, eye discharge, vision change ENT: as per HPI. denies: ear pain, throat pain Respiratory: denies: cough, shortness of breath, wheezing Cardiovascular: denies: chest pain, palpitations Endocrine: no symptoms reported Gastrointestinal: denies: abdominal pain, nausea, diarrhea Genitourinary: denies: urgency, dysuria Musculoskeletal: denies: back pain, joint swelling, arthralgia Skin: denies: rash, lesions Neurological: denies: headache, weakness, paresthesias Psychiatric: denies: anxiety, depression Hematological/Lymphatic: denies: easy bleeding, easy bruising ED Past Medical Hx - Past Medical History Hx Hypertension: No Hx CVA: No Hx Heart Attack/AMI: No Hx Congestive Heart Failure: No Hx Diabetes: No Hx Deep Vein Thrombosis: No Hx Pulmonary Embolism: No Hx GERD: No Hx Liver Disease: No Hx Renal Disease: No Hx Sickle Cell Disease: No Hx Arthritis: No Hx Headaches / Migraines: No Hx Seizures: No Hx Kidney Stones: No Hx Psychiatric Treatment: Yes (depression) Hx Asthma: No Hx COPD: No Hx Tuberculosis: No Hx Dementia: No Hx HIV: No - Surgical History Hx Coronary Stent: No Hx Open Heart Surgery: No Hx Pacemaker: No Hx Internal Defibrillator: No Hx Cholecystectomy: No Hx Appendectomy: No Hx Breast Surgery: No - Social History Smoking Status: Current Every Day Smoker Substance Use Type: None - Medications Home Medications: Home Medications Medication Instructions Recorded Confirmed Last Taken Type FLUoxetine [PROzac] 20 mg PO QDAY 01/22/17 01/22/17 Unknown History Paliperidone Palmitate [Invega 39 mg IM Q4W 01/22/17 01/22/17 Unknown History Sustenna] Acetaminophen/Codeine [Tylenol 1 tab PO Q6H PRN #9 tab 04/05/17 Unknown Rx /Codeine # 3 tab] Amoxicillin [Trimox CAP] 500 mg PO Q8H #30 capsule 04/05/17 Unknown Rx Chlorhexidine Mouthwash [Peridex] 10 ml MM BID #1 bottle 04/05/17 Unknown Rx Ibuprofen [Motrin] 800 mg PO Q8HR PRN #30 tablet 04/05/17 Unknown Rx ED Physical Exam - General Limitations: No Limitations General appearance: alert, in no apparent distress - Head Head exam: Present: atraumatic, normocephalic - Eye Eye exam: Present: normal appearance, PERRL, EOMI - ENT ENT exam: Present: mucous membranes moist - Expanded ENT Exam Expanded Teeth exam: Present: dental caries, dental tenderness # 1 - Fractured - Neck Neck exam: Present: normal inspection - Respiratory Respiratory exam: Present: normal lung sounds bilaterally. Absent: respiratory distress - Cardiovascular Cardiovascular Exam: Present: regular rate, normal rhythm. Absent: systolic murmur, diastolic murmur, rubs, gallop - GI/Abdominal GI/Abdominal exam: Present: soft, normal bowel sounds - Rectal Rectal exam: Present: deferred - Extremities Exam Extremities exam: Present: normal inspection - Back Exam Back exam: Present: normal inspection - Neurological Exam Neurological exam: Present: alert, oriented X3, CN II-XII intact, normal gait - Psychiatric Psychiatric exam: Present: normal affect, normal mood - Skin Skin exam: Present: warm, dry, intact, normal color. Absent: rash ED Course Vital Signs 04/05/17 19:27 Temperature 98 F Pulse Rate 106 H Respiratory 18 Rate Blood Pressure 135/94 O2 Sat by Pulse 96 Oximetry ED Medical Decision Making - Medical Decision Making A/P: dental cavities, toothache, dental fracture 1- Motrin when necessary, amoxicillin ten-day course, Orajel when necessary, Peridex mouthwash daily basis, short course codeine when necessary 2- I provided patient with information for multiple dental clinics to follow up and stressed the importance of dental follow-up as he has multiple cavities that require dental fixation or instrumentation 3- no clinical signs of facial abscess, no Sarbjit's angina, no induration or cellulitis of floor of mouth or tongue 4- patient able to tolerate by mouth before discharge 5- no signs of facial infection. Advised patient that if he does not take antibiotics with follow-up with a dentist as soon as possible that a can result in potentially serious or dangerous infection to develop in jaw or face. Patient states that he understood these instructions. I advised patient to return to the ED for any persistent unrelenting nausea or vomiting fever or chills or headaches. Critical care attestation.: If time is entered above; I have spent that time in minutes in the direct care of this critically ill patient, excluding procedure time. ED Disposition Clinical Impression: Pain, dental Disposition: - TO HOME OR SELFCARE Is pt being admited?: No Does the pt Need Aspirin: No Condition: Stable Instructions: Toothache (ED) Prescriptions: Acetaminophen/Codeine [Tylenol /Codeine # 3 tab] 1 tab PO Q6H PRN #9 tab PRN Reason: Toothache Amoxicillin [Trimox CAP] 500 mg PO Q8H #30 capsule Chlorhexidine Mouthwash [Peridex] 10 ml MM BID #1 bottle Ibuprofen [Motrin] 800 mg PO Q8HR PRN #30 tablet PRN Reason: Pain Referrals: [facility] [Outside] - 3-5 Days Forms: Work/School Release Form(ED) Time of Disposition: 23:20
== END 2017-04-05 23:40 | disposition home or self-care (01) ==
LOC: ED 18:50
DX: K08.89 Other specified disorders of teeth and supporting structures (principal); F32.9 Major depressive disorder, single episode, unspecified; F17.200 Nicotine dependence, unspecified, uncomplicated
CPT/HCPCS: 99282

== ENCOUNTER 2017-05-10 00:38 | Emergency (ER) | payer MEDICAID ==
[2017-05-10 00:44] VITALS: BP 138/89
[2017-05-10] MEDS ORDERED: FUL-GLO OP ONE ×2 (00:59→01:03)
[2017-05-10] MEDS ORDERED: TETRACAINE 0.5% OU ONE (00:59)
[2017-05-10] MEDS ORDERED: TETRACAINE 0.5% ONE (01:03)
--- NOTE | 2017-05-10 02:19 | Emergency Department Report ---
Eye Injury/Foreign Body - HPI Duration: Today Eye Location: Left Tetanus Status: Up to Date () Eye Symptoms: Eye Pain: Yes, Blurred Vision: Yes, Eye Redness: Yes, Grinding/ Hammering Metal: No, Used Eye Protection: No, Contact Lens Use: Yes, Recalls Injury: No, Photophobia: No Other History: 31-year-old male past medical history depression presents with complaint of left eye irritation. Patient states that while removing a contact lens today he felt a scratch sensation on the surface of his eye. Denies any other injuries. States he has had watery tears for my since this afternoon. Visible conjunctival redness ED Review of Systems ROS: Stated complaint: EYE PAIN Other details as noted in HPI Constitutional: denies: chills, fever Eyes: denies: eye pain, eye discharge, vision change ENT: denies: ear pain, throat pain Respiratory: denies: cough, shortness of breath, wheezing Cardiovascular: denies: chest pain, palpitations Endocrine: no symptoms reported Gastrointestinal: denies: abdominal pain, nausea, diarrhea Genitourinary: denies: urgency, dysuria Musculoskeletal: denies: back pain, joint swelling, arthralgia Skin: denies: rash, lesions Neurological: denies: headache, weakness, paresthesias Psychiatric: denies: anxiety, depression Hematological/Lymphatic: denies: easy bleeding, easy bruising ED Past Medical Hx - Past Medical History Previous Medical History?: Yes Hx Hypertension: No Hx CVA: No Hx Heart Attack/AMI: No Hx Congestive Heart Failure: No Hx Diabetes: No Hx Deep Vein Thrombosis: No Hx Pulmonary Embolism: No Hx GERD: No Hx Liver Disease: No Hx Renal Disease: No Hx Sickle Cell Disease: No Hx Arthritis: No Hx Headaches / Migraines: No Hx Seizures: No Hx Kidney Stones: No Hx Psychiatric Treatment: Yes (depression) Hx Asthma: No Hx COPD: No Hx Tuberculosis: No Hx Dementia: No Hx HIV: No - Surgical History Past Surgical History?: No Hx Coronary Stent: No Hx Open Heart Surgery: No Hx Pacemaker: No Hx Internal Defibrillator: No Hx Cholecystectomy: No Hx Appendectomy: No Hx Breast Surgery: No - Social History Smoking Status: Current Every Day Smoker Substance Use Type: Alcohol - Medications Home Medications: Home Medications Medication Instructions Recorded Confirmed Last Taken Type FLUoxetine [PROzac] 20 mg PO QDAY 01/22/17 01/22/17 Unknown History Paliperidone Palmitate [Invega 39 mg IM Q4W 01/22/17 01/22/17 Unknown History Sustenna] Acetaminophen/Codeine [Tylenol 1 tab PO Q6H PRN #9 tab 04/05/17 Unknown Rx /Codeine # 3 tab] Amoxicillin [Trimox CAP] 500 mg PO Q8H #30 capsule 04/05/17 Unknown Rx Chlorhexidine Mouthwash [Peridex] 10 ml MM BID #1 bottle 04/05/17 Unknown Rx Ibuprofen [Motrin] 800 mg PO Q8HR PRN #30 tablet 04/05/17 Unknown Rx Glycerin/Propylene Glycol 1 drop OS Q4H PRN #1 drops 05/10/17 Unknown Rx [Artificial Tears Drops] Ibuprofen [Motrin] 800 mg PO Q8HR PRN #30 tablet 05/10/17 Unknown Rx Ofloxacin 1 drop OS Q4H #1 drops 05/10/17 Unknown Rx Eye Injury Exam - Exam General: Vital signs noted. No distress. Alert and acting appropriately. - Visual Acuity Left Vision Acuity Degree: 20/200 Eye Exam: Left Injection, Left Chemosis, Both EOMI Right Vision Acuity Degree: 20/30 Eye Exam: Left Injection, Left Chemosis, Both EOMI Bilateral Vision Acuity Degree: 20/70 Eye Exam: Left Fluorescein Uptake (visible corneal abrasion with flourescein uptake left eye), Left Photophobia, Both EOMI ED Course Vital Signs 05/10/17 00:41 Temperature 97.9 F Pulse Rate 107 H Respiratory 18 Rate Blood Pressure 138/89 O2 Sat by Pulse 93 Oximetry ED Medical Decision Making - Medical Decision Making A/P: Corneal abrasion 1-as patient is contact lens wearer will give patient ofloxacin drops 2-artificial tears when necessary 3-Motrin when necessary 4-I advised patient to follow-up with ophthalmology within the next week to mitigate any long-term vision damage. Patient stated he understood the importance of following up. Tetanus vaccine up-to-date Critical care attestation.: If time is entered above; I have spent that time in minutes in the direct care of this critically ill patient, excluding procedure time. ED Disposition Clinical Impression: Corneal abrasion, left Qualifiers: Encounter type: initial encounter Qualified Code(s): S05.02XA - Injury of conjunctiva and corneal abrasion without foreign body, left eye, initial encounter Disposition: DC- TO HOME OR SELFCARE Is pt being admited?: No Does the pt Need Aspirin: No Condition: Stable Instructions: Corneal Abrasion (ED) Prescriptions: Glycerin/Propylene Glycol [Artificial Tears Drops] 1 drop OS Q4H PRN #1 drops PRN Reason: Dry Eye(S) Ibuprofen [Motrin] 800 mg PO Q8HR PRN #30 tablet PRN Reason: Pain Ofloxacin 1 drop OS Q4H #1 drops Referrals: ALECIA SARKAR MD [Staff Physician] - 3-5 Days ANTONIETTA SCHILLING MD [Staff Physician] - 3-5 Days Forms: Work/School Release Form(ED) Time of Disposition: 02:20
[2017-05-10] MEDS ORDERED: MOTRIN PO ONE (02:27)
== END 2017-05-10 02:45 | disposition home or self-care (01) ==
LOC: ED 00:38
DX: S05.02XA Injury of conjunctiva and corneal abrasion without foreign body, left eye, initial encounter (principal); F32.9 Major depressive disorder, single episode, unspecified; F17.200 Nicotine dependence, unspecified, uncomplicated; X58.XXXA Exposure to other specified factors, initial encounter; Y93.89 Activity, other specified; Y99.8 Other external cause status; Y92.89 Other specified places as the place of occurrence of the external cause
CPT/HCPCS: 99283

== ENCOUNTER 2017-05-19 03:19 | Emergency (ER) | payer MEDICAID ==
[2017-05-19 07:52] LABS: Basophils % (Auto) 0.6 % (0.0-1.8); Eosinophils % (Auto) 0.8 % (0.0-4.3); Hematocrit 44.4 % (35.5-45.6); Hemoglobin 15.3 gm/dl (11.8-15.2); Mean Corpuscular HGB Conc 35 % (32-34); Mean Corpuscular Hemoglobin 32 pg (28-32); Mean Corpuscular Volume 94 fl (84-94); Platelet Count 219 K/mm3 (140-440); Red Blood Count 4.74 M/mm3 (3.65-5.03); Red Cell Distribution Width 13.8 % (13.2-15.2)
[2017-05-19 08:11] LABS: Anion Gap 18 mmol/L; BUN/Creatinine Ratio 10; Blood Urea Nitrogen 7 mg/dL (9-20); Calcium 9.7 mg/dL (8.4-10.2); Carbon Dioxide 28 mmol/L (22-30); Chloride 98.6 mmol/L (98-107); Glucose 96 mg/dL (75-100); Potassium 4.3 mmol/L (3.6-5.0); Sodium 140 mmol/L (137-145)
--- NOTE | 2017-05-19 08:14 | Emergency Department Report ---
ED Psych HPI - General Chief Complaint: Psych Stated Complaint: MH Time Seen by Provider: 05/19/17 07:44 Source: patient Mode of arrival: Ambulatory - History of Present Illness Initial Comments: Patient is 31 years old male history of depression and bipolar disorder presented today with suicidal ideation that has been going on for few days patient stated that his mother is going through surgery now and he is worried. Patient does not have any specific plan, he stated that he is worried that he might kill himself. Patient denied any auditory or visual hallucination. No homicidal ideation. MD Complaint: suicidal ideation Associated Psychiatric Symptoms: depression, suicidal ideation - Related Data Home Medications Medication Instructions Recorded Confirmed Last Taken FLUoxetine [PROzac] 20 mg PO QDAY 01/22/17 05/19/17 2 Weeks Ago ~05/05/17 Paliperidone Palmitate [Invega 39 mg IM Q4W 01/22/17 05/19/17 4 Weeks Ago Sustenna] ~04/21/17 Previous Rx's Medication Instructions Recorded Last Taken Type Glycerin/Propylene Glycol 1 drop OS Q4H PRN #1 drops 05/10/17 2 Weeks Ago Rx [Artificial Tears Drops] ~05/05/17 Ibuprofen [Motrin] 800 mg PO Q8HR PRN #30 tablet 05/10/17 2 Weeks Ago Rx ~05/05/17 Ofloxacin 1 drop OS Q4H #1 drops 05/10/17 2 Weeks Ago Rx ~05/05/17 Allergies Allergy/AdvReac Type Severity Reaction Status Date / Time No Known Allergies Allergy Verified 01/22/17 06:56 ED Review of Systems ROS: Stated complaint: MH Other details as noted in HPI Comment: All other systems reviewed and negative Constitutional: denies: chills, fever ENT: denies: throat pain, dental pain Respiratory: denies: cough, orthopnea, shortness of breath, SOB with exertion, SOB at rest Cardiovascular: denies: chest pain, palpitations, dyspnea on exertion Gastrointestinal: denies: abdominal pain, nausea, vomiting, diarrhea, constipation, hematemesis Genitourinary: denies: urgency, dysuria, frequency, hematuria Neurological: denies: headache, weakness, numbness, paresthesias Psychiatric: depression, suicidal thoughts. denies: auditory hallucinations, visual hallucinations, homicidal thoughts ED Past Medical Hx - Past Medical History Previous Medical History?: Yes Hx Hypertension: No Hx CVA: No Hx Heart Attack/AMI: No Hx Congestive Heart Failure: No Hx Diabetes: No Hx Deep Vein Thrombosis: No Hx Pulmonary Embolism: No Hx GERD: No Hx Liver Disease: No Hx Renal Disease: No Hx Sickle Cell Disease: No Hx Arthritis: No Hx Headaches / Migraines: No Hx Seizures: No Hx Kidney Stones: No Hx Psychiatric Treatment: Yes (depression) Hx Asthma: No Hx COPD: No Hx Tuberculosis: No Hx Dementia: No Hx HIV: No - Surgical History Hx Coronary Stent: No Hx Open Heart Surgery: No Hx Pacemaker: No Hx Internal Defibrillator: No Hx Cholecystectomy: No Hx Appendectomy: No Hx Breast Surgery: No - Social History Smoking Status: Current Every Day Smoker Substance Use Type: Alcohol - Medications Home Medications: Home Medications Medication Instructions Recorded Confirmed Last Taken Type FLUoxetine [PROzac] 20 mg PO QDAY 01/22/17 05/19/17 2 Weeks Ago History ~05/05/17 Paliperidone Palmitate [Invega 39 mg IM Q4W 01/22/17 05/19/17 4 Weeks Ago History Sustenna] ~04/21/17 Glycerin/Propylene Glycol 1 drop OS Q4H PRN #1 drops 05/10/17 05/19/17 2 Weeks Ago Rx [Artificial Tears Drops] ~05/05/17 Ibuprofen [Motrin] 800 mg PO Q8HR PRN #30 tablet 05/10/17 05/19/17 2 Weeks Ago Rx ~05/05/17 Ofloxacin 1 drop OS Q4H #1 drops 05/10/17 05/19/17 2 Weeks Ago Rx ~05/05/17 ED Physical Exam - General Limitations: No Limitations General appearance: alert, in no apparent distress - Head Head exam: Present: atraumatic, normocephalic, normal inspection - Eye Eye exam: Present: normal appearance, PERRL - ENT ENT exam: Present: normal exam, normal orophraynx, mucous membranes moist - Neck Neck exam: Present: normal inspection, full ROM. Absent: tenderness, meningismus, lymphadenopathy - Respiratory Respiratory exam: Present: normal lung sounds bilaterally. Absent: respiratory distress, wheezes, rales, rhonchi, stridor, chest wall tenderness, accessory muscle use, decreased breath sounds, prolonged expiratory - Cardiovascular Cardiovascular Exam: Present: regular rate, normal rhythm, normal heart sounds - GI/Abdominal GI/Abdominal exam: Present: soft, normal bowel sounds. Absent: distended, tenderness, guarding, rebound, rigid, organomegaly, mass, bruit, pulsatile mass , hernia - Extremities Exam Extremities exam: Present: normal inspection, full ROM, normal capillary refill. Absent: tenderness, pedal edema - Back Exam Back exam: Present: normal inspection. Absent: tenderness, CVA tenderness (R), CVA tenderness (L) - Neurological Exam Neurological exam: Present: alert, oriented X3, CN II-XII intact, normal gait - Psychiatric Psychiatric exam: Present: normal affect, depressed, suicidal ideation. Absent : agitated, anxious, manic, homicidal ideation - Skin Skin exam: Present: warm, intact, normal color ED Course Vital Signs 05/19/17 05/19/17 05/19/17 03:25 03:33 09:37 Temperature 98.4 F 98.7 F Pulse Rate 108 H 108 H 124 H Respiratory 18 18 Rate Blood Pressure 147/103 147/103 161/95 O2 Sat by Pulse 95 99 96 Oximetry 05/19/17 09:40 Temperature Pulse Rate Respiratory 18 Rate Blood Pressure O2 Sat by Pulse 96 Oximetry ED Medical Decision Making - Lab Data Result diagrams: 05/19/17 07:15 05/19/17 07:15 Critical care attestation.: If time is entered above; I have spent that time in minutes in the direct care of this critically ill patient, excluding procedure time. ED Disposition Clinical Impression: Suicidal ideation Disposition: DC/TX-65 PSY HOSP/PSY UNIT Is pt being admited?: No Condition: Stable Referrals: PRIMARY CARE, [Primary Care Provider] - 3-5 Days
[2017-05-19 09:48] LABS: Bilirubin,Urine NEG (Negative); Blood,Urine NEG (Negative); Ketones,Urine NEG (Negative); Leukocyte Esterase,Urine NEG (Negative); Nitrite,Urine NEG (Negative); Protein,Urine <15 mg/dL mg/dL (Negative); Urobilinogen,Urine < 2.0 mg/dL (<2.0); WBC,Urine < 1.0 /HPF (0.0-6.0)
[2017-05-19] MEDS ORDERED: HABITROL TD ONE (11:43)
[2017-05-19] MEDS ORDERED: NORCO 5/325 ONE (16:27)
[2017-05-19] MEDS ORDERED: NORCO 5/325 PO ONE (16:28)
[2017-05-19 16:49] LABS: Urine Drugs of Abuse Note Disclamer
[2017-05-19 17:07] VITALS: BP 142/85
== END 2017-05-19 20:50 ==
LOC: EEVIPCON 03:19 → ED 03:19
DX: R45.851 Suicidal ideations (principal); F17.200 Nicotine dependence, unspecified, uncomplicated
CPT/HCPCS: 36415; 80048; 80307; 81001; 85025; 99285; G0480; 80320

== ENCOUNTER 2017-06-05 18:50 | Emergency (ER) | payer MEDICAID ==
[2017-06-05 18:57] VITALS: BP 151/76
[2017-06-05 19:18] LABS: Basophils # (Auto) 0.1 K/mm3 (0.0-0.1); Basophils % (Auto) 0.6 % (0.0-1.8); Eosinophils # (Auto) 0.1 K/mm3 (0.0-0.4); Eosinophils % (Auto) 1.2 % (0.0-4.3); Hematocrit 41.2 % (35.5-45.6); Hemoglobin 14.6 gm/dl (11.8-15.2); Lymphocytes # (Auto) 1.6 K/mm3 (1.2-5.4); Lymphocytes % (Auto) 15.8 % (13.4-35.0); Mean Corpuscular HGB Conc 36 % (32-34); Mean Corpuscular Hemoglobin 34 pg (28-32); Mean Corpuscular Volume 95 fl (84-94); Monocytes % (Auto) 9.6 % (0.0-7.3); Platelet Count 226 K/mm3 (140-440); Red Blood Count 4.36 M/mm3 (3.65-5.03); Red Cell Distribution Width 13.7 % (13.2-15.2)
[2017-06-05 19:37] LABS: BUN/Creatinine Ratio 16; Blood Urea Nitrogen 14 mg/dL (9-20); Calcium 9.4 mg/dL (8.4-10.2); Hemolysis Index 14
[2017-06-05] MEDS ORDERED: ATIVAN IV ONE (19:52)
[2017-06-05] MEDS ORDERED: NACL 0.9% 1000 ML 1,000 ML IV ONE (19:52)
[2017-06-05 19:58] LABS: Free T4 (Free Thyroxine) 1.27 ng/dL (0.76-1.46)
--- NOTE | 2017-06-05 20:24 | Emergency Department Report ---
ED Psych HPI - General Chief Complaint: Psych Stated Complaint: TALKING TO HIMSELF/FEELING WEIRD Time Seen by Provider: 06/05/17 19:10 Source: patient Mode of arrival: Ambulatory Limitations: No Limitations - History of Present Illness Initial Comments: 31-year male the past medical history of schizoaffective disorder and depression presents to the hospital complaining of feeling "weird" that started today. Patient has been compliant with his Invega every 4 weeks shots and states he thinks he got his last dose 2 weeks ago. He's been noncompliant with his Prozac for unknown amount of time. Patient has speaking rapidly, tachycardia, and appears to be manic he denies suicidal or homicidal ideation. Patient has some alcohol today but denies drug abuse. He also denies daily alcohol use. Decreased sleeping started last night. - Related Data Home Medications Medication Instructions Recorded Confirmed Last Taken FLUoxetine [PROzac] 20 mg PO QDAY 01/22/17 05/19/17 2 Weeks Ago ~05/05/17 Paliperidone Palmitate [Invega 39 mg IM Q4W 01/22/17 05/19/17 4 Weeks Ago Sustenna] ~04/21/17 Previous Rx's Medication Instructions Recorded Last Taken Type Glycerin/Propylene Glycol 1 drop OS Q4H PRN #1 drops 05/10/17 2 Weeks Ago Rx [Artificial Tears Drops] ~05/05/17 Ibuprofen [Motrin] 800 mg PO Q8HR PRN #30 tablet 05/10/17 2 Weeks Ago Rx ~05/05/17 Ofloxacin 1 drop OS Q4H #1 drops 05/10/17 2 Weeks Ago Rx ~05/05/17 Allergies Allergy/AdvReac Type Severity Reaction Status Date / Time No Known Allergies Allergy Verified 06/05/17 18:54 ED Review of Systems ROS: Stated complaint: TALKING TO HIMSELF/FEELING WEIRD Other details as noted in HPI Comment: All other systems reviewed and negative Other: Constitutional: No fevers chills Eyes: No eye pain visual changes ENT: No ear pain or throat pain Neck: Denies pain Respiratory: Denies cough wheezing shortness of breath Cardiovascular: Denies chest pain, palpitations, syncope GI: Denies abdominal pain, nausea, vomiting, diarrhea : Denies dysuria Musculoskeletal: Denies back pain, joint swelling Skin: Denies rash, lesions, erythema Neurologic: Denies headache, numbness, weakness Psychiatric: as per hpi ED Past Medical Hx - Past Medical History Hx Hypertension: No Hx CVA: No Hx Heart Attack/AMI: No Hx Congestive Heart Failure: No Hx Diabetes: No Hx Deep Vein Thrombosis: No Hx Pulmonary Embolism: No Hx GERD: No Hx Liver Disease: No Hx Renal Disease: No Hx Sickle Cell Disease: No Hx Arthritis: No Hx Headaches / Migraines: No Hx Seizures: No Hx Kidney Stones: No Hx Psychiatric Treatment: Yes (depression) Hx Asthma: No Hx COPD: No Hx Tuberculosis: No Hx Dementia: No Hx HIV: No - Surgical History Hx Coronary Stent: No Hx Open Heart Surgery: No Hx Pacemaker: No Hx Internal Defibrillator: No Hx Cholecystectomy: No Hx Appendectomy: No Hx Breast Surgery: No - Social History Smoking Status: Current Every Day Smoker Substance Use Type: Alcohol - Medications Home Medications: Home Medications Medication Instructions Recorded Confirmed Last Taken Type FLUoxetine [PROzac] 20 mg PO QDAY 01/22/17 05/19/17 2 Weeks Ago History ~05/05/17 Paliperidone Palmitate [Invega 39 mg IM Q4W 01/22/17 05/19/17 4 Weeks Ago History Sustenna] ~04/21/17 Glycerin/Propylene Glycol 1 drop OS Q4H PRN #1 drops 05/10/17 05/19/17 2 Weeks Ago Rx [Artificial Tears Drops] ~05/05/17 Ibuprofen [Motrin] 800 mg PO Q8HR PRN #30 tablet 05/10/17 05/19/17 2 Weeks Ago Rx ~05/05/17 Ofloxacin 1 drop OS Q4H #1 drops 05/10/17 05/19/17 2 Weeks Ago Rx ~05/05/17 ED Physical Exam - General Limitations: No Limitations - Other Other exam information: General: No limitations, patient is alert in no acute distress Head exam: Atraumatic, normocephalic Eyes exam: Normal appearance, pupils equal reactive to light, extraocular movements intact ENT: Moist mucous membrane, normal oropharynx Neck exam: Normal inspection, full range of motion, no meningismus nontender Respiratory exam: Clear to auscultation bilateral, no wheezes, rales, crackles Cardiovascular: Tachycardic regular rhythm Abdomen: Soft, nondistended, and nontender, with normal bowel sounds, no rebound, or guarding Extremity: Full range of motion normal inspection no deformity Back: Normal Inspection, full range of motion, no tenderness Neurologic: Alert, oriented x3, cranial nerves intact, no motor or sensory deficit Psychiatric: Appears anxious, rapid speech Skin: Warm, dry, intact ED Course Vital Signs 06/05/17 18:54 Temperature 98.6 F Pulse Rate 144 H Respiratory 20 Rate Blood Pressure 151/76 O2 Sat by Pulse 97 Oximetry ED Medical Decision Making - Lab Data Result diagrams: 06/05/17 19:08 06/05/17 19:07 Lab Results 06/05/17 06/05/17 06/05/17 Range/Units 19:07 19:07 19:07 WBC (4.5-11.0) K/mm3 RBC (3.65-5.03) M/mm3 Hgb (11.8-15.2) gm/dl Hct (35.5-45.6) % MCV (84-94) fl MCH (28-32) pg MCHC (32-34) % RDW (13.2-15.2) % Plt Count (140-440) K/mm3 Lymph % (Auto) (13.4-35.0) % [place] % (Auto) (0.0-7.3) % Eos % (Auto) (0.0-4.3) % Baso % (Auto) (0.0-1.8) % Lymph # (1.2-5.4) K/mm3 [place] # (0.0-0.8) K/mm3 Eos # (0.0-0.4) K/mm3 Baso # (0.0-0.1) K/mm3 Seg Neutrophils % (40.0-70.0) % Seg Neutrophils # (1.8-7.7) K/mm3 Sodium 138 (137-145) mmol/L Potassium 3.9 (3.6-5.0) mmol/L Chloride 98.5 (98-107) mmol/L Carbon Dioxide 25 (22-30) mmol/L Anion Gap 18 mmol/L BUN 14 (9-20) mg/dL Creatinine 0.9 (0.8-1.5) mg/dL Estimated GFR > 60 ml/min BUN/Creatinine Ratio 16 % Glucose 109 H (75-100) mg/dL Calcium 9.4 (8.4-10.2) mg/dL Total Creatine Kinase 1057 H (55-170) units/L TSH (0.270-4.200) mlU/mL Free T4 (0.76-1.46) ng/dL Plasma/Serum Alcohol < 0.01 (0-0.07) gm% 06/05/17 06/05/17 Range/Units 19:07 19:08 WBC 9.9 (4.5-11.0) K/mm3 RBC 4.36 (3.65-5.03) M/mm3 Hgb 14.6 (11.8-15.2) gm/dl Hct 41.2 (35.5-45.6) % MCV 95 H (84-94) fl MCH 34 H (28-32) pg MCHC 36 H (32-34) % RDW 13.7 (13.2-15.2) % Plt Count 226 (140-440) K/mm3 Lymph % (Auto) 15.8 (13.4-35.0) % [place] % (Auto) 9.6 H (0.0-7.3) % Eos % (Auto) 1.2 (0.0-4.3) % Baso % (Auto) 0.6 (0.0-1.8) % Lymph # 1.6 (1.2-5.4) K/mm3 [place] # 1.0 H (0.0-0.8) K/mm3 Eos # 0.1 (0.0-0.4) K/mm3 Baso # 0.1 (0.0-0.1) K/mm3 Seg Neutrophils % 72.8 H (40.0-70.0) % Seg Neutrophils # 7.2 (1.8-7.7) K/mm3 Sodium (137-145) mmol/L Potassium (3.6-5.0) mmol/L Chloride (98-107) mmol/L Carbon Dioxide (22-30) mmol/L Anion Gap mmol/L BUN (9-20) mg/dL Creatinine (0.8-1.5) mg/dL Estimated GFR ml/min BUN/Creatinine Ratio % Glucose (75-100) mg/dL Calcium (8.4-10.2) mg/dL Total Creatine Kinase (55-170) units/L TSH 1.070 (0.270-4.200) mlU/mL Free T4 1.27 (0.76-1.46) ng/dL Plasma/Serum Alcohol (0-0.07) gm% - Medical Decision Making Ativan and IV fluids were ordered with plan to get EKG if tachycardia did not improve. Patient eloped prior to treatment. Patient was alert and oriented 3 with no suicidal homicidal ideation. CK level also elevated. We'll instruct RN to attempt to call patient to encourage him to return to the ER for IV fluids and further treatment the patient does not meet 1013 criteria. - Differential Diagnosis dehydration, jasmyne, drug abuse, anxiety, medication noncompliance Critical Care Time: No Critical care attestation.: If time is entered above; I have spent that time in minutes in the direct care of this critically ill patient, excluding procedure time. ED Disposition Clinical Impression: Jasmyne, Tachycardia, Noncompliance with medications, Elevated CK Disposition: Z-07 ELOPED Is pt being admited?: No Does the pt Need Aspirin: No Condition: Stable Time of Disposition: 20:24
== END 2017-06-05 20:15 | disposition left against medical advice (07) ==
LOC: EEVIPCON 18:50 → ED 18:50
DX: F30.9 Manic episode, unspecified (principal); R74.8 Abnormal levels of other serum enzymes; F32.9 Major depressive disorder, single episode, unspecified; F17.200 Nicotine dependence, unspecified, uncomplicated
CPT/HCPCS: 36415; 80048; 82550; 84439; 84443; 85025; 99283; G0480; 80320

== ENCOUNTER 2017-06-08 17:25 | Emergency (ER) | payer MEDICAID ==
[2017-06-08 17:51] VITALS: BP 166/100
[2017-06-08 18:42] LABS: Basophils # (Auto) 0.1 K/mm3 (0.0-0.1); Basophils % (Auto) 0.7 % (0.0-1.8); Eosinophils # (Auto) 0.3 K/mm3 (0.0-0.4); Eosinophils % (Auto) 3.7 % (0.0-4.3); Hematocrit 41.1 % (35.5-45.6); Hemoglobin 14.1 gm/dl (11.8-15.2); Lymphocytes # (Auto) 1.4 K/mm3 (1.2-5.4); Lymphocytes % (Auto) 19.3 % (13.4-35.0); Mean Corpuscular HGB Conc 34 % (32-34); Mean Corpuscular Hemoglobin 33 pg (28-32); Mean Corpuscular Volume 96 fl (84-94); Monocytes # (Auto) 0.7 K/mm3 (0.0-0.8); Platelet Count 228 K/mm3 (140-440); Red Blood Count 4.27 M/mm3 (3.65-5.03); Red Cell Distribution Width 14.3 % (13.2-15.2)
[2017-06-08 18:58] LABS: BUN/Creatinine Ratio 11; Blood Urea Nitrogen 8 mg/dL (9-20); Calcium 8.8 mg/dL (8.4-10.2); Hemolysis Index 11
[2017-06-08 19:29] LABS: Bilirubin,Urine NEG (Negative); Blood,Urine NEG (Negative); Color,Urine Yellow (Yellow); Mucus,Urine FEW /HPF; Nitrite,Urine NEG (Negative); Protein,Urine <15 mg/dL mg/dL (Negative); Urobilinogen,Urine < 2.0 mg/dL (<2.0); WBC,Urine < 1.0 /HPF (0.0-6.0)
[2017-06-08 19:39] LABS: Amphetamine Screen,Urine PRESUMPTIVE NEGATIVE; Benzodiazepines Screen,Urine PRESUMPTIVE NEGATIVE; Cannabinoid Screen,Urine PRESUMPTIVE NEGATIVE; Cocaine Screen,Urine PRESUMPTIVE NEGATIVE; Methadone Screen,Urine PRESUMPTIVE NEGATIVE; Opiate Screen,Urine PRESUMPTIVE NEGATIVE
--- NOTE | 2017-06-08 23:17 | Emergency Department Report ---
ED Psych HPI - General Chief Complaint: Psych Stated Complaint: AGGRESSIVE BEHAVIOR Time Seen by Provider: 06/08/17 23:08 Source: patient Mode of arrival: Ambulatory - History of Present Illness Initial Comments: Report from [place] was not consistent with the report Dorota got from the home where they said he tried to burn himself. Patient reports he was smoking inside and he was not supposed to. Ludwin dropped on his pants and inspection by nurse showed no fowler. Patient was initially brought up here and left in the lobby and then he left and went back to [facility] at which time he was brought back here Complaint: other -: days(s) (2) Associated Psychiatric Symptoms: none History of same: No Quality: constant Improves With: none Worsens With: none Context: significant life stressor Associated Symptoms: denies other symptoms - Related Data Home Medications Medication Instructions Recorded Confirmed Last Taken FLUoxetine [PROzac] 20 mg PO QDAY 01/22/17 05/19/17 2 Weeks Ago ~05/05/17 Paliperidone Palmitate [Invega 39 mg IM Q4W 01/22/17 05/19/17 4 Weeks Ago Sustenna] ~04/21/17 Previous Rx's Medication Instructions Recorded Last Taken Type Glycerin/Propylene Glycol 1 drop OS Q4H PRN #1 drops 05/10/17 2 Weeks Ago Rx [Artificial Tears Drops] ~05/05/17 Ibuprofen [Motrin] 800 mg PO Q8HR PRN #30 tablet 05/10/17 2 Weeks Ago Rx ~05/05/17 Ofloxacin 1 drop OS Q4H #1 drops 05/10/17 2 Weeks Ago Rx ~05/05/17 Allergies Allergy/AdvReac Type Severity Reaction Status Date / Time No Known Allergies Allergy Verified 06/05/17 18:54 ED Review of Systems ROS: Stated complaint: AGGRESSIVE BEHAVIOR Other details as noted in HPI Constitutional: denies: chills, fever Eyes: denies: eye pain, eye discharge, vision change ENT: denies: ear pain, throat pain Respiratory: denies: cough, shortness of breath, wheezing Cardiovascular: denies: chest pain, palpitations Endocrine: no symptoms reported Gastrointestinal: denies: abdominal pain, nausea, diarrhea Genitourinary: denies: urgency, dysuria Musculoskeletal: denies: back pain, joint swelling, arthralgia Skin: denies: rash, lesions Neurological: denies: headache, weakness, paresthesias Psychiatric: denies: anxiety, depression Hematological/Lymphatic: denies: easy bleeding, easy bruising ED Past Medical Hx - Past Medical History Hx Hypertension: No Hx CVA: No Hx Heart Attack/AMI: No Hx Congestive Heart Failure: No Hx Diabetes: No Hx Deep Vein Thrombosis: No Hx Pulmonary Embolism: No Hx GERD: No Hx Liver Disease: No Hx Renal Disease: No Hx Sickle Cell Disease: No Hx Arthritis: No Hx Headaches / Migraines: No Hx Seizures: No Hx Kidney Stones: No Hx Psychiatric Treatment: Yes (depression) Hx Asthma: No Hx COPD: No Hx Tuberculosis: No Hx Dementia: No Hx HIV: No - Surgical History Hx Coronary Stent: No Hx Open Heart Surgery: No Hx Pacemaker: No Hx Internal Defibrillator: No Hx Cholecystectomy: No Hx Appendectomy: No Hx Breast Surgery: No - Social History Smoking Status: Current Every Day Smoker Substance Use Type: Alcohol - Medications Home Medications: Home Medications Medication Instructions Recorded Confirmed Last Taken Type FLUoxetine [PROzac] 20 mg PO QDAY 01/22/17 05/19/17 2 Weeks Ago History ~05/05/17 Paliperidone Palmitate [Invega 39 mg IM Q4W 01/22/17 05/19/17 4 Weeks Ago History Sustenna] ~04/21/17 Glycerin/Propylene Glycol 1 drop OS Q4H PRN #1 drops 05/10/17 05/19/17 2 Weeks Ago Rx [Artificial Tears Drops] ~05/05/17 Ibuprofen [Motrin] 800 mg PO Q8HR PRN #30 tablet 05/10/17 05/19/17 2 Weeks Ago Rx ~05/05/17 Ofloxacin 1 drop OS Q4H #1 drops 05/10/17 05/19/17 2 Weeks Ago Rx ~05/05/17 ED Physical Exam - General Limitations: No Limitations General appearance: alert, in no apparent distress - Head Head exam: Present: atraumatic, normocephalic - Eye Eye exam: Present: normal appearance - ENT ENT exam: Present: mucous membranes moist, other (Right TM with fluid behind TM and Nares with pink swollen tissue.) - Neck Neck exam: Present: normal inspection - Respiratory Respiratory exam: Present: normal lung sounds bilaterally. Absent: respiratory distress - Cardiovascular Cardiovascular Exam: Present: regular rate, normal rhythm. Absent: systolic murmur, diastolic murmur, rubs, gallop - GI/Abdominal GI/Abdominal exam: Present: soft, normal bowel sounds - Rectal Rectal exam: Present: deferred - Extremities Exam Extremities exam: Present: normal inspection - Back Exam Back exam: Present: normal inspection - Neurological Exam Neurological exam: Present: alert, oriented X3 - Psychiatric Psychiatric exam: Present: normal affect, normal mood - Skin Skin exam: Present: warm, dry, intact, normal color. Absent: rash ED Course Vital Signs 06/08/17 17:46 Temperature 97.4 F L Pulse Rate 116 H Respiratory 18 Rate Blood Pressure 166/100 O2 Sat by Pulse 98 Oximetry ED Medical Decision Making - Lab Data Result diagrams: 06/08/17 18:05 06/08/17 18:05 Elevated glucose - Medical Decision Making Patient is not a threat to self or others. Psych Dorota and I agree. Patient will remain for health care social worker to place him in a new home for his schizoaffective disorder. He also has allergies versus URI for which I recommended OTC supportive care. Critical care attestation.: If time is entered above; I have spent that time in minutes in the direct care of this critically ill patient, excluding procedure time. ED Disposition Clinical Impression: Schizoaffective disorder Qualifiers: Schizoaffective disorder type: depressive Qualified Code(s): F25.1 - Schizoaffective disorder, depressive type Disposition: DC-01 TO HOME OR SELFCARE Is pt being admited?: No Does the pt Need Aspirin: No Condition: Good Instructions: Schizoaffective Disorder (ED) Referrals: [facility] [Outside] - 3-5 Days Time of Disposition: 23:18 (or per health care social worker dispo.)
== END 2017-06-08 23:49 | disposition home or self-care (01) ==
LOC: ED 17:25
DX: F20.9 Schizophrenia, unspecified (principal); F17.200 Nicotine dependence, unspecified, uncomplicated
CPT/HCPCS: 36415; 80048; 80307; 81001; 85025; 99283; G0480; 80320

== ENCOUNTER 2017-09-02 19:28 | Emergency (ER) | payer MEDICAID ==
[2017-09-02 20:17] LABS: Basophils % (Auto) 0.5 % (0.0-1.8); Eosinophils # (Auto) 0.3 K/mm3 (0.0-0.4); Eosinophils % (Auto) 2.9 % (0.0-4.3); Hematocrit 41.5 % (35.5-45.6); Hemoglobin 14.6 gm/dl (11.8-15.2); Mean Corpuscular HGB Conc 35 % (32-34); Mean Corpuscular Hemoglobin 33 pg (28-32); Mean Corpuscular Volume 94 fl (84-94); Monocytes # (Auto) 0.8 K/mm3 (0.0-0.8); Monocytes % (Auto) 8.7 % (0.0-7.3); Platelet Count 219 K/mm3 (140-440); Red Blood Count 4.43 M/mm3 (3.65-5.03); Red Cell Distribution Width 13.4 % (13.2-15.2)
[2017-09-02 20:29] LABS: BUN/Creatinine Ratio 10; Blood Urea Nitrogen 7 mg/dL (9-20); Hemolysis Index 11
[2017-09-02 21:12] LABS: Bilirubin,Urine NEG (Negative); Blood,Urine NEG (Negative); Color,Urine Yellow (Yellow); Protein,Urine <15 mg/dL mg/dL (Negative); Urobilinogen,Urine < 2.0 mg/dL (<2.0); WBC,Urine < 1.0 /HPF (0.0-6.0)
[2017-09-02 21:22] LABS: Amphetamine Screen,Urine PRESUMPTIVE NEGATIVE; Benzodiazepines Screen,Urine PRESUMPTIVE NEGATIVE; Cannabinoid Screen,Urine PRESUMPTIVE NEGATIVE; Cocaine Screen,Urine PRESUMPTIVE NEGATIVE; Methadone Screen,Urine PRESUMPTIVE NEGATIVE; Opiate Screen,Urine PRESUMPTIVE NEGATIVE
--- NOTE | 2017-09-02 22:53 | Emergency Department Report ---
ED Psych HPI - General Chief Complaint: Psych Stated Complaint: SUICIDAL Time Seen by Provider: 09/02/17 20:46 Source: patient Mode of arrival: Ambulatory - History of Present Illness Initial Comments: pt. is comoplaining of suicidal ideation and feeling sad. he also as auditory hallucination MD Complaint: suicidal ideation -: Gradual Associated Psychiatric Symptoms: depression, suicidal ideation History of same: Yes Quality: constant Improves With: none Worsens With: none Associated Symptoms: denies other symptoms Treatments Prior to Arrival: none - Related Data Home Medications Medication Instructions Recorded Confirmed Last Taken FLUoxetine [PROzac] 20 mg PO QDAY 01/22/17 05/19/17 09/02/17 Paliperidone Palmitate [Invega 39 mg IM Q4W 01/22/17 05/19/17 08/03/17 Sustenna] Allergies Allergy/AdvReac Type Severity Reaction Status Date / Time No Known Allergies Allergy Verified 06/05/17 18:54 ED Review of Systems ROS: Stated complaint: SUICIDAL Other details as noted in HPI Comment: All other systems reviewed and negative ED Past Medical Hx - Past Medical History Hx Hypertension: No Hx CVA: No Hx Heart Attack/AMI: No Hx Congestive Heart Failure: No Hx Diabetes: No Hx Deep Vein Thrombosis: No Hx Pulmonary Embolism: No Hx GERD: No Hx Liver Disease: No Hx Renal Disease: No Hx Sickle Cell Disease: No Hx Arthritis: No Hx Headaches / Migraines: No Hx Seizures: No Hx Kidney Stones: No Hx Psychiatric Treatment: Yes (depression) Hx Asthma: No Hx COPD: No Hx Tuberculosis: No Hx Dementia: No Hx HIV: No - Surgical History Hx Coronary Stent: No Hx Open Heart Surgery: No Hx Pacemaker: No Hx Internal Defibrillator: No Hx Cholecystectomy: No Hx Appendectomy: No Hx Breast Surgery: No - Social History Smoking Status: Current Every Day Smoker Substance Use Type: None - Medications Home Medications: Home Medications Medication Instructions Recorded Confirmed Last Taken Type FLUoxetine [PROzac] 20 mg PO QDAY 01/22/17 05/19/17 09/02/17 History Paliperidone Palmitate [Invega 39 mg IM Q4W 01/22/17 05/19/17 08/03/17 History Sustenna] ED Physical Exam - General Limitations: No Limitations General appearance: alert, in no apparent distress - Head Head exam: Present: atraumatic, normocephalic - Eye Eye exam: Present: normal appearance - ENT ENT exam: Present: mucous membranes moist - Neck Neck exam: Present: normal inspection - Respiratory Respiratory exam: Present: normal lung sounds bilaterally. Absent: respiratory distress - Cardiovascular Cardiovascular Exam: Present: regular rate, normal rhythm. Absent: systolic murmur, diastolic murmur, rubs, gallop - GI/Abdominal GI/Abdominal exam: Present: soft, normal bowel sounds. Absent: tenderness - Rectal Rectal exam: Present: deferred - Extremities Exam Extremities exam: Present: normal inspection - Back Exam Back exam: Present: normal inspection - Neurological Exam Neurological exam: Present: alert, oriented X3 - Psychiatric Psychiatric exam: Present: normal affect, normal mood - Skin Skin exam: Present: warm, dry, intact, normal color. Absent: rash ED Course Vital Signs 09/02/17 19:44 Temperature 98.5 F Pulse Rate 93 H Respiratory 18 Rate Blood Pressure 149/95 O2 Sat by Pulse 96 Oximetry ED Medical Decision Making - Lab Data Result diagrams: 09/02/17 20:03 09/02/17 20:03 - Medical Decision Making pt. is still been assessed by mental health Critical care attestation.: If time is entered above; I have spent that time in minutes in the direct care of this critically ill patient, excluding procedure time. ED Disposition Clinical Impression: Suicidal ideation Condition: Stable Referrals: DWIGHT TRAMMELL MD [Primary Care Provider] - 3-5 Days
[2017-09-03 10:01] VITALS: BP 134/78
--- NOTE | 2017-09-03 10:11 | Consultation ---
History of Present Illness - Reason for Consult Consult date: 09/03/17 Reason for consult: Mental Health Evaluation Requesting physician: AALIYAH DASH - Chief Complaint Chief complaint: "I hear voices" - History of Present Psychiatric Illness 31 y.o. white male presenting to the ER for SI's and hearing voices. This patient is known to me. Today the patient is calm and cooperative during the assessment. He stated that he started hearing voices yesterday. He cannot make out what the voices are saying, but he stated, "It's bothersome." He stated being suicidal with a plan to overdose on pills. The patient acknowledged previous suicide attempts by overdose. He stated that he has not received the monthly Invega injection in 2 months. He stated that he thought he would be okay without receiving the injection. He admitted to erratic sleep, but denies a poor appetite. He denies HI's and VH's. He denies recreational drug use and alcohol consumption (etoh). Medications and Allergies Allergies Allergy/AdvReac Type Severity Reaction Status Date / Time No Known Allergies Allergy Verified 06/05/17 18:54 Home Medications Medication Instructions Recorded Confirmed Last Taken Type FLUoxetine [PROzac] 20 mg PO QDAY 01/22/17 05/19/17 09/02/17 History Paliperidone Palmitate [Invega 39 mg IM Q4W 01/22/17 05/19/17 08/03/17 History Sustenna] Past psychiatric history - Past Medical History Past Medical History: No medical history Past Surgical History: No surgical history - past Psychiatric treatment and history psychiatric treatment history: Multiple inpatient psy services. Denies a fam psy hx. - Social History Social history: other (Reside at a nursing home) Mental Status Exam - Vital signs Last Vital Signs Temp 98.7 F 09/03/17 09:59 Pulse 87 09/03/17 09:59 Resp 20 09/03/17 09:59 BP 134/78 09/03/17 09:59 Pulse Ox 98 09/03/17 09:59 - Exam Narrative exam: MSE: Appearance: calm, cooperative Behavior: regular eye contact Speech: regular rate and tone Mood: "okay" Affect: congruent to mood Thought Process: circumstantial Thought Content: denies HI's and VH's Motor Activity: sitting up in bed Cognition: A/O x3 Insight: variable Judgment: variable Results Result Diagrams: 09/02/17 20:03 09/02/17 20:03 Abnormal lab results 09/02/17 09/02/17 09/02/17 Range/Units 20:03 20:03 20:03 MCH (28-32) pg MCHC (32-34) % [place] % (Auto) (0.0-7.3) % BUN 7 L (9-20) mg/dL Creatinine 0.7 L (0.8-1.5) mg/dL Salicylates < 0.3 L (2.8-20.0) mg/dL Acetaminophen < 5.0 L (10.0-30.0) ug/mL 09/02/17 Range/Units 20:03 MCH 33 H (28-32) pg MCHC 35 H (32-34) % [place] % (Auto) 8.7 H (0.0-7.3) % BUN (9-20) mg/dL Creatinine (0.8-1.5) mg/dL Salicylates (2.8-20.0) mg/dL Acetaminophen (10.0-30.0) ug/mL All other labs normal. Assessment and Plan Assessment and plan: Impression: Schizoaffective DO. Today the patient is calm and cooperative during the assessment. The patient endorses SI's with a plan. DDx: R/O Bipolar DO, MDD with psychosis, R/O Schizophrenia Recommendation/Plan: Continue 1013 with placement to [facility] today.
== END 2017-09-03 12:46 ==
LOC: ED 19:28 → EEVIPCON 19:28 → ED 09-03 12:46
DX: F32.9 Major depressive disorder, single episode, unspecified (principal); F17.200 Nicotine dependence, unspecified, uncomplicated
CPT/HCPCS: 36415; 80048; 80307; 81001; 85025; 99283; G0480; 80320

== ENCOUNTER 2017-09-12 18:14 | Emergency (ER) | payer MEDICAID ==
[2017-09-12 20:15] LABS: Bilirubin,Urine NEG (Negative); Blood,Urine NEG (Negative); Color,Urine Red (Yellow); Protein,Urine <15 mg/dL mg/dL (Negative); Urobilinogen,Urine < 2.0 mg/dL (<2.0)
[2017-09-12 20:20] LABS: Basophils # (Auto) 0.1 K/mm3 (0.0-0.1); Basophils % (Auto) 1.6 % (0.0-1.8); Eosinophils # (Auto) 0.1 K/mm3 (0.0-0.4); Eosinophils % (Auto) 1.6 % (0.0-4.3); Hematocrit 44.4 % (35.5-45.6); Hemoglobin 14.8 gm/dl (11.8-15.2); Lymphocytes # (Auto) 2.4 K/mm3 (1.2-5.4); Lymphocytes % (Auto) 27.5 % (13.4-35.0); Mean Corpuscular HGB Conc 33 % (32-34); Mean Corpuscular Hemoglobin 33 pg (28-32); Mean Corpuscular Volume 98 fl (84-94); Monocytes # (Auto) 0.5 K/mm3 (0.0-0.8); Platelet Count 254 K/mm3 (140-440); Red Blood Count 4.53 M/mm3 (3.65-5.03); Red Cell Distribution Width 13.9 % (13.2-15.2)
[2017-09-12] MEDS ORDERED: TYLENOL PO PRN (20:24)
[2017-09-12 20:27] LABS: Amphetamine Screen,Urine PRESUMPTIVE NEGATIVE; Benzodiazepines Screen,Urine PRESUMPTIVE NEGATIVE; Cannabinoid Screen,Urine PRESUMPTIVE NEGATIVE; Cocaine Screen,Urine PRESUMPTIVE NEGATIVE; Methadone Screen,Urine PRESUMPTIVE NEGATIVE; Opiate Screen,Urine PRESUMPTIVE NEGATIVE
[2017-09-12 20:39] LABS: BUN/Creatinine Ratio 14; Blood Urea Nitrogen 10 mg/dL (9-20); Calcium 8.7 mg/dL (8.4-10.2); Hemolysis Index 13
--- NOTE | 2017-09-12 20:51 | Emergency Department Report ---
ED Psych HPI - General Chief Complaint: Psych Stated Complaint: MH/SI Time Seen by Provider: 09/12/17 20:04 Source: patient Mode of arrival: Ambulatory - History of Present Illness Initial Comments: Mac is a very pleasant 31-year-old male with history of schizoaffective disorder. He stated that he has been severely depressed since he was last discharged from [facility] inpatient psychiatric unit one week ago. He is currently staying at a half-way. He admits to suicidal ideation with plan to overdose on alcohol and pills. He drinks alcohol daily. He tends to drink 40-80 ounces of beer daily. He is taking his medications Invega and Paroxetine which have not controlled his symptoms. He has depression and auditory hallucination just rambling voices without any commands or repetitive messaging. He denies any physical complaints. He has a history of hypertension. He does not take antihypertensive medications. His mother lives in the area. She is supportive. He has a romantic relationship which Has been supportive. He does smoke tobacco. No use of recreational drugs. He has had several inpatient psychiatric consultations. He has had 1 previous suicide attempt. . - Related Data Home Medications Medication Instructions Recorded Confirmed Last Taken FLUoxetine [PROzac] 20 mg PO QDAY 01/22/17 09/12/17 09/02/17 Paliperidone Palmitate [Invega 39 mg IM Q4W 01/22/17 09/12/17 08/03/17 Sustenna] Allergies Allergy/AdvReac Type Severity Reaction Status Date / Time No Known Allergies Allergy Verified 06/05/17 18:54 ED Review of Systems ROS: Stated complaint: MH/SI Other details as noted in HPI Comment: All other systems reviewed and negative Constitutional: denies: chills, fever Respiratory: denies: cough Cardiovascular: denies: chest pain ED Past Medical Hx - Past Medical History Hx Hypertension: No Hx CVA: No Hx Heart Attack/AMI: No Hx Congestive Heart Failure: No Hx Diabetes: No Hx Deep Vein Thrombosis: No Hx Pulmonary Embolism: No Hx GERD: No Hx Liver Disease: No Hx Renal Disease: No Hx Sickle Cell Disease: No Hx Arthritis: No Hx Headaches / Migraines: No Hx Seizures: No Hx Kidney Stones: No Hx Psychiatric Treatment: Yes (depression, schizophrenia) Hx Asthma: No Hx COPD: No Hx Tuberculosis: No Hx Dementia: No Hx HIV: No - Surgical History Hx Coronary Stent: No Hx Open Heart Surgery: No Hx Pacemaker: No Hx Internal Defibrillator: No Hx Cholecystectomy: No Hx Appendectomy: No Hx Breast Surgery: No - Social History Smoking Status: Current Every Day Smoker Substance Use Type: None - Medications Home Medications: Home Medications Medication Instructions Recorded Confirmed Last Taken Type FLUoxetine [PROzac] 20 mg PO QDAY 01/22/17 09/12/17 09/02/17 History Paliperidone Palmitate [Invega 39 mg IM Q4W 01/22/17 09/12/17 08/03/17 History Sustenna] ED Physical Exam - General Limitations: No Limitations General appearance: alert, in no apparent distress - Head Head exam: Present: atraumatic, normocephalic - Eye Eye exam: Present: normal appearance - ENT ENT exam: Present: mucous membranes moist - Neck Neck exam: Present: normal inspection - Respiratory Respiratory exam: Present: normal lung sounds bilaterally. Absent: respiratory distress, wheezes, rales, rhonchi - Cardiovascular Cardiovascular Exam: Present: regular rate, normal rhythm, normal heart sounds. Absent: systolic murmur, diastolic murmur, rubs, gallop - GI/Abdominal GI/Abdominal exam: Present: soft, normal bowel sounds. Absent: distended, tenderness, guarding, rebound - Rectal Rectal exam: Present: deferred - Extremities Exam Extremities exam: Present: normal inspection - Back Exam Back exam: Present: normal inspection - Neurological Exam Neurological exam: Present: alert, oriented X3 - Psychiatric Psychiatric exam: Present: normal affect, depressed - Skin Skin exam: Present: warm, dry, intact, normal color. Absent: rash ED Course Vital Signs 09/12/17 20:03 Temperature 99.0 F Pulse Rate 102 H Respiratory 18 Rate Blood Pressure 122/77 [Left] O2 Sat by Pulse 98 Oximetry ED Medical Decision Making - Lab Data Result diagrams: 09/12/17 20:10 - Medical Decision Making I have reviewed labs. Mr. Carrera is placed on 1013 with precautions. He is medically clear for psychiatric care. Awaiting mental health assessment for further treatment recommendations. Critical care attestation.: If time is entered above; I have spent that time in minutes in the direct care of this critically ill patient, excluding procedure time. ED Disposition Clinical Impression: Suicidal ideation, Depression Disposition: DC/TX-70 ANOTHER TYPE HLTHCARE Is pt being admited?: No Does the pt Need Aspirin: No Condition: Stable
[2017-09-13] MEDS ORDERED: HABITROL TD ONE (00:20)
[2017-09-13 09:36] LABS: Alanine Aminotransferase 32 units/L (7-56); Lipase 16 units/L (13-60)
[2017-09-13] MEDS ORDERED: PROzac PO SCH (10:00)
[2017-09-13 10:41] VITALS: BP 149/97
--- NOTE | 2017-09-13 13:56 | Consultation ---
History of Present Illness - Reason for Consult Consult date: 09/13/17 Reason for consult: Mental Health Evaluation Requesting physician: CODY GALLO - Chief Complaint Chief complaint: "I like this hospital" - History of Present Psychiatric Illness 31-year-old male with history of schizoaffective disorder presenting to the ER for SI's. This patient is known to me. Today the patient is calm, cooperative, but hyper verbal during assessment. He stated being depressed for days and had a plan to overdose on pills yesterday. He stated, "I don't think I want to today. The patient had to be redirected several times to keep him on topic during the interview. He stated not sleeping for several day prior to arriving to the ER. He is noncompliant with his monthly Invega injection when asked. He did state drinking more frequent lately. He denies SI/HI's and VH's. He stated hearing voices today, but could not say what they were telling him. He denies a poor appetite. He denies recreational drug use. Medications and Allergies Allergies Allergy/AdvReac Type Severity Reaction Status Date / Time No Known Allergies Allergy Verified 06/05/17 18:54 Home Medications Medication Instructions Recorded Confirmed Last Taken Type FLUoxetine [PROzac] 20 mg PO QDAY 01/22/17 09/12/17 09/02/17 History Paliperidone Palmitate [Invega 39 mg IM Q4W 01/22/17 09/12/17 08/03/17 History Sustenna] Active Meds: Active Medications Acetaminophen (Tylenol) 650 mg PO Q6H PRN PRN Reason: Pain Stop: 09/17/17 20:23 Past psychiatric history - Past Medical History Past Medical History: No medical history Past Surgical History: No surgical history - past Psychiatric treatment and history Psych: Bipolar, Schizophrenia psychiatric treatment history: Multiple inpatient psy services. Denies a fam psy hx. - Social History Social history: lives with family Mental Status Exam - Vital signs Last Vital Signs Temp 98.5 F 09/13/17 10:40 Pulse 101 H 09/13/17 10:40 Resp 20 09/13/17 13:07 BP 149/97 09/13/17 10:40 Pulse Ox 100 09/13/17 10:40 - Exam Narrative exam: MSE: Appearance: cooperative Behavior: regular eye contact Speech: hyper verbal Mood: "anxious" Affect: normal Thought Process: tangential Thought Content: denies SI/HI's and VH's, disorganized Motor Activity: ambulatory Cognition: A/O x 3 Insight: poor Judgment: poor Results Result Diagrams: 09/12/17 20:10 09/12/17 20:10 Abnormal lab results 09/12/17 09/12/17 09/12/17 Range/Units 18:35 20:10 20:10 MCV (84-94) fl MCH (28-32) pg Chloride (98-107) mmol/L Creatinine (0.8-1.5) mg/dL Glucose (75-100) mg/dL Ur Specific Jenera 1.002 L (1.003-1.030) Salicylates < 0.3 L (2.8-20.0) mg/dL Acetaminophen < 5.0 L (10.0-30.0) ug/mL Valproic Acid (50-100) ug/mL Plasma/Serum Alcohol (0-0.07) % 09/12/17 09/12/17 09/12/17 Range/Units 20:10 20:10 20:10 MCV 98 H (84-94) fl MCH 33 H (28-32) pg Chloride 97.5 L (98-107) mmol/L Creatinine 0.7 L (0.8-1.5) mg/dL Glucose 118 H (75-100) mg/dL Ur Specific Jenera (1.003-1.030) Salicylates (2.8-20.0) mg/dL Acetaminophen (10.0-30.0) ug/mL Valproic Acid (50-100) ug/mL Plasma/Serum Alcohol 0.09 H (0-0.07) % 09/13/17 Range/Units 09:03 MCV (84-94) fl MCH (28-32) pg Chloride (98-107) mmol/L Creatinine (0.8-1.5) mg/dL Glucose (75-100) mg/dL Ur Specific Jenera (1.003-1.030) Salicylates (2.8-20.0) mg/dL Acetaminophen (10.0-30.0) ug/mL Valproic Acid < 2.8 L (50-100) ug/mL Plasma/Serum Alcohol (0-0.07) % All other labs normal. Assessment and Plan Assessment and plan: Impression: Schizoaffective DO. Alcohol Use DO. Alcohol Intoxication on admission. Today the patient is calm, cooperative, but hyper verbal during assessment. The patient is manic. DDx: R/O Bipolar, R/O Alcohol Induced Mood DO Recommendation/Plan: Continue 1013 with placement to [facility] today.
== END 2017-09-13 17:40 | disposition other institution (70) ==
LOC: ED 18:14
DX: F32.9 Major depressive disorder, single episode, unspecified (principal); F20.9 Schizophrenia, unspecified; F17.200 Nicotine dependence, unspecified, uncomplicated
CPT/HCPCS: 36415; 80048; 80164; 80307; 81001; 82150; 83690; 84075; 84450; 84460; 85025; 99285; G0480; 80320; 99284

== ENCOUNTER 2018-01-16 01:11 | Emergency (ER) | payer MEDICAID ==
[2018-01-16 01:51] VITALS: BP 130/82
[2018-01-16 02:45] LABS: Basophils % (Auto) 0.5 % (0.0-1.8); Eosinophils # (Auto) 0.3 K/mm3 (0.0-0.4); Eosinophils % (Auto) 2.8 % (0.0-4.3); Hematocrit 42.3 % (35.5-45.6); Hemoglobin 14.9 gm/dl (11.8-15.2); Lymphocytes # (Auto) 2.2 K/mm3 (1.2-5.4); Lymphocytes % (Auto) 23.6 % (13.4-35.0); Mean Corpuscular HGB Conc 35 % (32-34); Mean Corpuscular Hemoglobin 34 pg (28-32); Mean Corpuscular Volume 98 fl (84-94); Monocytes # (Auto) 1.1 K/mm3 (0.0-0.8); Monocytes % (Auto) 11.5 % (0.0-7.3); Platelet Count 263 K/mm3 (140-440); Red Blood Count 4.34 M/mm3 (3.65-5.03); Red Cell Distribution Width 14.3 % (13.2-15.2)
[2018-01-16 02:51] LABS: BUN/Creatinine Ratio 15; Blood Urea Nitrogen 12 mg/dL (9-20); Calcium 9.2 mg/dL (8.4-10.2); Hemolysis Index 25
[2018-01-16 12:37] LABS: Bilirubin,Urine NEG (Negative); Blood,Urine NEG (Negative); Color,Urine Yellow (Yellow); Mucus,Urine 3+ /HPF; Urobilinogen,Urine < 2.0 mg/dL (<2.0)
[2018-01-16 12:44] LABS: Amphetamine Screen,Urine PRESUMPTIVE NEGATIVE; Benzodiazepines Screen,Urine PRESUMPTIVE NEGATIVE; Cannabinoid Screen,Urine PRESUMPTIVE NEGATIVE; Cocaine Screen,Urine PRESUMPTIVE NEGATIVE; Methadone Screen,Urine PRESUMPTIVE NEGATIVE; Opiate Screen,Urine PRESUMPTIVE NEGATIVE
== END 2018-01-16 05:42 | disposition left against medical advice (07) ==
LOC: ED 01:11
DX: Z04.6 Encounter for general psychiatric examination, requested by authority (principal); Z53.21 Procedure and treatment not carried out due to patient leaving prior to being seen by health care provider
CPT/HCPCS: 36415; 80048; 80307; 81001; 85025; G0480; 80320

== ENCOUNTER 2018-01-16 12:00 | Emergency (ER) | payer MEDICAID ==
[2018-01-16 12:09] VITALS: BP 161/95
[2018-01-16 13:09] LABS: Basophils % (Auto) 0.3 % (0.0-1.8); Eosinophils # (Auto) 0.2 K/mm3 (0.0-0.4); Eosinophils % (Auto) 1.7 % (0.0-4.3); Hematocrit 42.4 % (35.5-45.6); Hemoglobin 14.8 gm/dl (11.8-15.2); Lymphocytes # (Auto) 1.6 K/mm3 (1.2-5.4); Lymphocytes % (Auto) 18.2 % (13.4-35.0); Mean Corpuscular HGB Conc 35 % (32-34); Mean Corpuscular Hemoglobin 34 pg (28-32); Mean Corpuscular Volume 97 fl (84-94); Monocytes # (Auto) 0.8 K/mm3 (0.0-0.8); Monocytes % (Auto) 8.5 % (0.0-7.3); Platelet Count 258 K/mm3 (140-440); Red Cell Distribution Width 14.3 % (13.2-15.2)
--- NOTE | 2018-01-16 13:13 | Emergency Department Report ---
HPI - General Chief Complaint: Psych Time Seen by Provider: 01/16/18 12:54 - HPI HPI: Room 13 The patient is a 32-year-old male presenting with a chief complaint of insomnia. The patient states for the past 3 days he's been having difficulty sleeping. The patient states his memory has been "messed up" secondary to the lack of sleep. However the patient states he was able to get some rest today and now he feels better. Patient currently denies complaints. Patient denies suicidal or homicidal ideation. Patient denies auditory or visual hallucinations. The patient is in a usp and reportedly the caregiver felt the patient patient in front of a store today and brought him in for evaluation. Location: Mental state Duration: 3 days Quality: Insomnia Severity: Moderate Modifying factors: [see above] Context: [see above] Mode of transportation: [not driving] ED Past Medical Hx - Past Medical History Hx Psychiatric Treatment: Yes (depression, schizophrenia) - Family History Family history: no significant - Social History Smoking Status: Heavy Tobacco Smoker (1.5-2 packs per day) Substance Use Type: None (denies illicit drug use), Alcohol (occasional) - Medications Home Medications: Home Medications Medication Instructions Recorded Confirmed Last Taken Type FLUoxetine [PROzac] 20 mg PO QDAY 01/22/17 09/12/17 09/02/17 History Paliperidone Palmitate [Invega 39 mg IM Q4W 01/22/17 09/12/17 08/03/17 History Sustenna] Zolpidem [Ambien] 5 mg PO QHS PRN #5 tablet 01/16/18 Unknown Rx ED Review of Systems ROS: Stated complaint: DEPRESSION/DELUSION Other details as noted in HPI Constitutional: no symptoms reported Eyes: denies: eye pain ENT: denies: throat pain Respiratory: no symptoms reported Cardiovascular: denies: chest pain Endocrine: no symptoms reported Gastrointestinal: denies: abdominal pain Genitourinary: denies: dysuria Musculoskeletal: denies: back pain Neurological: denies: headache Psychiatric: other (insomnia). denies: auditory hallucinations, visual hallucinations, homicidal thoughts, suicidal thoughts Physical Exam - Physical Exam Vital Signs: Vital Signs 01/16/18 12:08 Temperature 98.5 F Pulse Rate 125 H Respiratory 18 Rate Blood Pressure 161/95 [Right] O2 Sat by Pulse 98 Oximetry Vital Signs 01/16/18 01/16/18 12:08 15:15 Temperature 98.5 F Pulse Rate 125 H 105 H Respiratory 18 Rate Blood Pressure 161/95 [Right] O2 Sat by Pulse 98 Oximetry Physical Exam: GENERAL: The patient is well-developed well-nourished male sitting on stretcher not appearing to be in acute distress. [] HEENT: Normocephalic. Atraumatic. Extraocular motions are intact. Patient has moist mucous membranes. NECK: Supple. No meningitic signs are noted. There is no adenopathy noted. CHEST/LUNGS: Clear to auscultation. There is no respiratory distress noted. HEART/CARDIOVASCULAR: Regular. There is no tachycardia. There is no gallop rub or murmur. ABDOMEN: Abdomen is soft, nontender. Patient has normal bowel sounds. There is no abdominal distention. SKIN: There is no rash. There is no edema. There is no diaphoresis. NEURO: The patient is awake, alert, and oriented. The patient is cooperative. The patient has no focal neurologic deficits. The patient has normal speech. Cranial nerves II through XII grossly intact, no drift MUSCULOSKELETAL: There is no evidence of acute injury. ED Course Vital Signs 01/16/18 12:08 Temperature 98.5 F Pulse Rate 125 H Respiratory 18 Rate Blood Pressure 161/95 [Right] O2 Sat by Pulse 98 Oximetry ED Medical Decision Making - Lab Data Result diagrams: 01/16/18 12:32 01/16/18 12:32 Laboratory Tests 01/16/18 01/16/18 01/16/18 12:32 12:32 12:32 WBC RBC Hgb Hct MCV MCH MCHC RDW Plt Count Lymph % (Auto) Pierce % (Auto) Eos % (Auto) Baso % (Auto) Lymph # Pierce # Eos # Baso # Seg Neutrophils % Seg Neutrophils # Sodium 141 Potassium 4.5 Chloride 101.0 Carbon Dioxide 24 Anion Gap 21 BUN 12 Creatinine 0.9 Estimated GFR > 60 BUN/Creatinine Ratio 13 Glucose 86 Calcium 9.9 Salicylates < 0.3 L Acetaminophen < 5.0 L Plasma/Serum Alcohol 01/16/18 01/16/18 12:32 12:32 WBC 8.9 RBC 4.40 Hgb 14.8 Hct 42.4 MCV 97 H MCH 34 H MCHC 35 H RDW 14.3 Plt Count 258 Lymph % (Auto) 18.2 Pierce % (Auto) 8.5 H Eos % (Auto) 1.7 Baso % (Auto) 0.3 Lymph # 1.6 Pierce # 0.8 Eos # 0.2 Baso # 0.0 Seg Neutrophils % 71.3 H Seg Neutrophils # 6.4 Sodium Potassium Chloride Carbon Dioxide Anion Gap BUN Creatinine Estimated GFR BUN/Creatinine Ratio Glucose Calcium Salicylates Acetaminophen Plasma/Serum Alcohol < 0.01 - Differential Diagnosis insomnia, anxiety Critical care attestation.: If time is entered above; I have spent that time in minutes in the direct care of this critically ill patient, excluding procedure time. ED Disposition Clinical Impression: Insomnia Disposition: DC- TO HOME OR SELFCARE Is pt being admited?: No Does the pt Need Aspirin: No Condition: Stable Instructions: Insomnia (ED) Additional Instructions: Return to the emergency department immediately should you develop worsening symptoms, fever, inability to tolerate food or liquid or any other concerns. Prescriptions: Zolpidem [Ambien] 5 mg PO QHS PRN #5 tablet PRN Reason: Sleep Referrals: PRIMARY CARE, [Primary Care Provider] - 3-5 Days [facility] [Outside] - 3-5 Days Time of Disposition: 15:20
[2018-01-16 13:25] LABS: BUN/Creatinine Ratio 13; Blood Urea Nitrogen 12 mg/dL (9-20); Calcium 9.9 mg/dL (8.4-10.2); Hemolysis Index 9
[2018-01-16] MEDS ORDERED: NACL 0.9% 1000 ML 1,000 ML IV ONE (13:36)
[2018-01-16 17:21] LABS: Bilirubin,Urine NEG (Negative); Blood,Urine NEG (Negative); Color,Urine Yellow (Yellow); Mucus,Urine 3+ /HPF; Protein,Urine <15 mg/dL mg/dL (Negative); Urobilinogen,Urine < 2.0 mg/dL (<2.0)
[2018-01-16 17:30] LABS: Amphetamine Screen,Urine PRESUMPTIVE NEGATIVE; Benzodiazepines Screen,Urine PRESUMPTIVE NEGATIVE; Cannabinoid Screen,Urine PRESUMPTIVE NEGATIVE; Cocaine Screen,Urine PRESUMPTIVE NEGATIVE; Methadone Screen,Urine PRESUMPTIVE NEGATIVE; Opiate Screen,Urine PRESUMPTIVE NEGATIVE
== END 2018-01-16 17:08 | disposition home or self-care (01) ==
LOC: ED 12:00
DX: G47.00 Insomnia, unspecified (principal); F32.9 Major depressive disorder, single episode, unspecified; F20.9 Schizophrenia, unspecified; F17.210 Nicotine dependence, cigarettes, uncomplicated
CPT/HCPCS: 36415; 80048; 80307; 81001; 85025; 99283; G0480; J7030; 80320

== ENCOUNTER 2018-01-20 14:27 | Emergency (ER) | payer MEDICAID ==
[2018-01-20 15:38] LABS: Basophils # (Auto) 0.1 K/mm3 (0.0-0.1); Basophils % (Auto) 0.5 % (0.0-1.8); Eosinophils # (Auto) 0.2 K/mm3 (0.0-0.4); Eosinophils % (Auto) 1.8 % (0.0-4.3); Hematocrit 44.5 % (35.5-45.6); Hemoglobin 15.5 gm/dl (11.8-15.2); Lymphocytes # (Auto) 1.9 K/mm3 (1.2-5.4); Lymphocytes % (Auto) 19.6 % (13.4-35.0); Mean Corpuscular HGB Conc 35 % (32-34); Mean Corpuscular Hemoglobin 34 pg (28-32); Mean Corpuscular Volume 96 fl (84-94); Monocytes # (Auto) 0.9 K/mm3 (0.0-0.8); Monocytes % (Auto) 8.8 % (0.0-7.3); Platelet Count 286 K/mm3 (140-440); Red Blood Count 4.62 M/mm3 (3.65-5.03); Red Cell Distribution Width 14.3 % (13.2-15.2)
[2018-01-20 15:42] LABS: Bilirubin,Urine NEG (Negative); Blood,Urine NEG (Negative); Color,Urine Yellow (Yellow); Mucus,Urine 1+ /HPF; Protein,Urine <15 mg/dL mg/dL (Negative); WBC,Urine < 1.0 /HPF (0.0-6.0)
[2018-01-20 15:44] LABS: Amphetamine Screen,Urine PRESUMPTIVE NEGATIVE; Benzodiazepines Screen,Urine PRESUMPTIVE NEGATIVE; Cannabinoid Screen,Urine PRESUMPTIVE NEGATIVE; Cocaine Screen,Urine PRESUMPTIVE NEGATIVE; Methadone Screen,Urine PRESUMPTIVE NEGATIVE; Opiate Screen,Urine PRESUMPTIVE NEGATIVE
[2018-01-20 15:58] LABS: BUN/Creatinine Ratio 14; Blood Urea Nitrogen 11 mg/dL (9-20); Calcium 9.8 mg/dL (8.4-10.2); Hemolysis Index 11
--- NOTE | 2018-01-20 20:07 | Emergency Department Report ---
ED Psych HPI - General Chief Complaint: Psych Stated Complaint: ANXIETY Time Seen by Provider: 01/20/18 20:06 Source: patient Mode of arrival: Ambulatory Limitations: No Limitations - History of Present Illness MD Complaint: suicidal ideation, feels depressed -: Gradual, week(s) Associated Psychiatric Symptoms: depression, suicidal ideation History of same: Yes Quality: constant Improves With: none Worsens With: none Context: not taking psychiatric, significant life stressor Associated Symptoms: denies other symptoms Treatments Prior to Arrival: none If Self Harm: admits thoughts of, has plan - Related Data Home Medications Medication Instructions Recorded Confirmed Last Taken FLUoxetine [PROzac] 20 mg PO QDAY 01/22/17 01/20/18 09/02/17 Paliperidone Palmitate [Invega 39 mg IM Q4W 01/22/17 01/20/18 08/03/17 Sustenna] Previous Rx's Medication Instructions Recorded Last Taken Type Zolpidem [Ambien] 5 mg PO QHS PRN #5 tablet 01/16/18 Unknown Rx Allergies Allergy/AdvReac Type Severity Reaction Status Date / Time No Known Allergies Allergy Verified 06/05/17 18:54 ED Review of Systems ROS: Stated complaint: ANXIETY Other details as noted in HPI Comment: All other systems reviewed and negative Constitutional: denies: chills, fever Eyes: denies: eye pain ENT: denies: ear pain, throat pain Respiratory: denies: cough, shortness of breath Cardiovascular: denies: chest pain, palpitations, dyspnea on exertion Endocrine: no symptoms reported Gastrointestinal: denies: abdominal pain, nausea, vomiting, diarrhea Genitourinary: denies: urgency, dysuria Musculoskeletal: denies: back pain, joint swelling Skin: denies: rash, lesions Neurological: denies: headache, weakness, numbness Psychiatric: anxiety, depression, suicidal thoughts. denies: homicidal thoughts Hematological/Lymphatic: denies: easy bleeding, easy bruising ED Past Medical Hx - Past Medical History Hx Hypertension: No Hx CVA: No Hx Heart Attack/AMI: No Hx Congestive Heart Failure: No Hx Diabetes: No Hx Deep Vein Thrombosis: No Hx Pulmonary Embolism: No Hx GERD: No Hx Liver Disease: No Hx Renal Disease: No Hx Sickle Cell Disease: No Hx Arthritis: No Hx Headaches / Migraines: No Hx Seizures: No Hx Kidney Stones: No Hx Psychiatric Treatment: Yes (depression, schizophrenia) Hx Asthma: No Hx COPD: No Hx Tuberculosis: No Hx Dementia: No Hx HIV: No - Surgical History Hx Coronary Stent: No Hx Open Heart Surgery: No Hx Pacemaker: No Hx Internal Defibrillator: No Hx Cholecystectomy: No Hx Appendectomy: No Hx Breast Surgery: No - Social History Smoking Status: Current Every Day Smoker Substance Use Type: Alcohol - Medications Home Medications: Home Medications Medication Instructions Recorded Confirmed Last Taken Type FLUoxetine [PROzac] 20 mg PO QDAY 01/22/17 01/20/18 09/02/17 History Paliperidone Palmitate [Invega 39 mg IM Q4W 01/22/17 01/20/18 08/03/17 History Sustenna] Zolpidem [Ambien] 5 mg PO QHS PRN #5 tablet 01/16/18 01/20/18 Unknown Rx ED Physical Exam - General Limitations: No Limitations General appearance: alert, in no apparent distress - Head Head exam: Present: atraumatic, normocephalic, normal inspection - Eye Eye exam: Present: normal appearance, PERRL, EOMI Pupils: Present: normal accommodation - ENT ENT exam: Present: normal exam, normal orophraynx, mucous membranes moist - Neck Neck exam: Present: normal inspection, full ROM. Absent: tenderness - Respiratory Respiratory exam: Present: normal lung sounds bilaterally. Absent: respiratory distress, wheezes, rales, rhonchi, stridor - Cardiovascular Cardiovascular Exam: Present: regular rate, normal rhythm, normal heart sounds - GI/Abdominal GI/Abdominal exam: Present: soft, normal bowel sounds. Absent: distended, tenderness, guarding, rebound - Extremities Exam Extremities exam: Present: normal inspection, full ROM, normal capillary refill. Absent: tenderness - Back Exam Back exam: Present: normal inspection. Absent: full ROM, tenderness, CVA tenderness (R), CVA tenderness (L) - Neurological Exam Neurological exam: Present: alert, oriented X3, CN II-XII intact - Psychiatric Psychiatric exam: Present: normal affect, normal mood - Skin Skin exam: Present: warm, dry, intact, normal color. Absent: rash ED Course Vital Signs 01/20/18 14:58 Temperature 98.1 F Pulse Rate 115 H Respiratory 16 Rate Blood Pressure 139/97 O2 Sat by Pulse 97 Oximetry - Reevaluation(s) Reevaluation #1: 01/20/18 21:28 Patient is medically clear for psychiatric evaluation. ED Medical Decision Making - Lab Data Result diagrams: 01/20/18 15:26 01/20/18 15:26 - Radiology Data Radiology results: report reviewed - Medical Decision Making Suicide ideation. Critical care attestation.: If time is entered above; I have spent that time in minutes in the direct care of this critically ill patient, excluding procedure time. ED Disposition Clinical Impression: Suicide ideation, History of schizoaffective disorder, History of bipolar disorder Disposition: DC/TX-65 PSY HOSP/PSY UNIT Is pt being admited?: No Does the pt Need Aspirin: No Condition: Stable Referrals: PRIMARY CARE, [Primary Care Provider] - 3-5 Days Time of Disposition: 21:25
[2018-01-21 02:39] VITALS: BP 113/66
== END 2018-01-21 06:31 ==
LOC: ED 14:27
DX: R45.851 Suicidal ideations (principal); F31.9 Bipolar disorder, unspecified; F20.9 Schizophrenia, unspecified; F17.200 Nicotine dependence, unspecified, uncomplicated; Z79.899 Other long term (current) drug therapy
CPT/HCPCS: 36415; 80048; 80307; 81001; 85025; 93005; 93010; 99285; G0480; 80320

== ENCOUNTER 2018-08-08 23:37 | Emergency (ER) | payer MEDICAID ==
[2018-08-09 00:43] LABS: Basophils # (Auto) 0.1 K/mm3 (0.0-0.1); Basophils % (Auto) 0.5 % (0.0-1.8); Eosinophils # (Auto) 0.1 K/mm3 (0.0-0.4); Eosinophils % (Auto) 1.3 % (0.0-4.3); Hemoglobin 15.4 gm/dl (11.8-15.2); Lymphocytes # (Auto) 2.3 K/mm3 (1.2-5.4); Lymphocytes % (Auto) 19.7 % (13.4-35.0); Mean Corpuscular HGB Conc 35 % (32-34); Mean Corpuscular Volume 96 fl (84-94); Monocytes # (Auto) 0.9 K/mm3 (0.0-0.8); Platelet Count 262 K/mm3 (140-440); Red Blood Count 4.61 M/mm3 (3.65-5.03); Red Cell Distribution Width 13.8 % (13.2-15.2)
[2018-08-09 01:01] LABS: Bilirubin,Urine NEG (Negative); Blood,Urine NEG (Negative); Color,Urine Yellow (Yellow); Mucus,Urine FEW /HPF; Protein,Urine <15 mg/dL mg/dL (Negative); Urobilinogen,Urine < 2.0 mg/dL (<2.0); WBC,Urine < 1.0 /HPF (0.0-6.0)
[2018-08-09 01:02] LABS: BUN/Creatinine Ratio 8; Blood Urea Nitrogen 6 mg/dL (9-20); Hemolysis Index 12
[2018-08-09 01:06] LABS: Amphetamine Screen,Urine PRESUMPTIVE NEGATIVE; Benzodiazepines Screen,Urine PRESUMPTIVE NEGATIVE; Cannabinoid Screen,Urine PRESUMPTIVE NEGATIVE; Cocaine Screen,Urine PRESUMPTIVE NEGATIVE; Methadone Screen,Urine PRESUMPTIVE NEGATIVE; Opiate Screen,Urine PRESUMPTIVE NEGATIVE
--- NOTE | 2018-08-09 01:46 | Emergency Department Report ---
HPI - General Chief Complaint: Psych Time Seen by Provider: 08/09/18 00:33 - HPI HPI: 32 male presents to the emergency department for a psychiatric evaluation. Patient says that he has been "cycling between ups and Downs" over the past 3 days. He says that he has been unable to get any sleep but even with that there are times when he would just lay in bed and feels like he is unable to move. The patient also says that he is having hallucinations. He says that he has some chronic auditory hallucinations but does not usually have visual hallucina tions. The past 3 days he has been visualizing "demons". He denies any suicidal or homicidal ideations or any hallucinations. He has a past mental history of bipolar disorder and schizoaffective disorder. He says that he has a psychiatrist for follow-up at [facility] but did not feel that he would make it there. ED Past Medical Hx - Past Medical History Previous Medical History?: Yes Hx Hypertension: No Hx CVA: No Hx Heart Attack/AMI: No Hx Congestive Heart Failure: No Hx Diabetes: No Hx Deep Vein Thrombosis: No Hx Pulmonary Embolism: No Hx GERD: No Hx Liver Disease: No Hx Renal Disease: No Hx Sickle Cell Disease: No Hx Arthritis: No Hx Headaches / Migraines: No Hx Seizures: No Hx Kidney Stones: No Hx Psychiatric Treatment: Yes (bipolar, schizophrenia-effective) Hx Asthma: No Hx COPD: No Hx Tuberculosis: No Hx Dementia: No Hx HIV: No - Surgical History Past Surgical History?: Yes Hx Coronary Stent: No Hx Open Heart Surgery: No Hx Pacemaker: No Hx Internal Defibrillator: No Hx Cholecystectomy: No Hx Appendectomy: No Hx Breast Surgery: No Additional Surgical History: glass from foot - Social History Smoking Status: Current Every Day Smoker Substance Use Type: Alcohol, Marijuana - Medications Home Medications: Home Medications Medication Instructions Recorded Confirmed Last Taken Type Paliperidone Palmitate [Invega 39 mg IM Q4W 01/22/17 04/17/18 08/03/17 History Sustenna] Lisinopril [Zestril] 5 mg PO QDAY 05/26/18 05/26/18 Unknown History hydrOXYzine PAMOATE [Vistaril] 50 mg PO BID 05/26/18 05/26/18 Unknown History ED Review of Systems ROS: Stated complaint: CAN'T SLEEP Other details as noted in HPI Comment: All other systems reviewed and negative Constitutional: denies: chills, fever Eyes: denies: eye pain, vision change ENT: denies: ear pain, throat pain Respiratory: denies: cough, shortness of breath Cardiovascular: denies: chest pain, palpitations Gastrointestinal: denies: abdominal pain, vomiting Genitourinary: denies: dysuria, discharge Musculoskeletal: denies: back pain, arthralgia Skin: denies: rash, lesions Neurological: denies: headache, weakness Psychiatric: anxiety, depression, auditory hallucinations, visual hallucinations. denies: homicidal thoughts, suicidal thoughts Physical Exam - Physical Exam Vital Signs: Vital Signs 08/08/18 08/09/18 23:50 00:33 Temperature 97.9 F 98.2 F Pulse Rate 100 H Respiratory 16 Rate Blood Pressure 139/95 [Left] O2 Sat by Pulse 98 Oximetry Physical Exam: GENERAL: The patient is well-developed well-nourished. HEENT: Normocephalic. Atraumatic. Patient has moist mucous membranes. EYES: Extraocular motions are intact. NECK: Supple. Trachea is midline. CHEST/LUNGS: Clear to auscultation. There is no respiratory distress noted. HEART/CARDIOVASCULAR: Regular. There is no tachycardia. There is no obvious murmur. ABDOMEN: Abdomen is soft, nontender. Patient has normal bowel sounds. Obese habitus. SKIN: Skin is warm and dry. NEURO: The patient is awake, alert, and oriented. The patient is cooperative. The patient has no focal neurologic deficits. PSYCH: Patient has some pressured speech. MUSCULOSKELETAL: There is no tenderness or deformity. There is no limitation range of motion. There is no evidence of acute injury. ED Course Vital Signs 08/08/18 08/09/18 23:50 00:33 Temperature 97.9 F 98.2 F Pulse Rate 100 H Respiratory 16 Rate Blood Pressure 139/95 [Left] O2 Sat by Pulse 98 Oximetry ED Medical Decision Making - Lab Data Result diagrams: 08/09/18 00:02 08/09/18 00:02 - Medical Decision Making This patient presents for a mental health evaluation. He is having continued auditory hallucinations and visual hallucinations which he is visualizing demons. He is cycling between what appears to be depression and mimi. At this current time he appears more manic with pressured speech. Given his mimi, insomnia, and concerning visual hallucinations, the patient has been made a 1013. Labs have been unremarkable including blood alcohol and urine drug screen. Vital signs stable throughout his ED course. The patient appears medically clear for psychiatric placement. - Differential Diagnosis bipolar disorder, schizoaffective, schizophrenia, substance abuse Critical Care Time: No Critical care attestation.: If time is entered above; I have spent that time in minutes in the direct care of this critically ill patient, excluding procedure time. ED Disposition Clinical Impression: History of bipolar disorder, History of schizoaffective disorder, Acute psychosis, Manic behavior Disposition: 09 OP ADMIT IP TO THIS HOSP Is pt being admited?: Yes Condition: Stable Referrals: PRIMARY CAREMD [Primary Care Provider] - 3-5 Days Time of Disposition: 01:47
[2018-08-09] MEDS ORDERED: XANAX PO ONE (01:57)
[2018-08-09 09:34] VITALS: BP 129/80
[2018-08-09 10:04] LABS: Alanine Aminotransferase 52 units/L (7-56)
--- NOTE | 2018-08-09 10:19 | Consultation ---
History of Present Illness - Reason for Consult Consult date: 08/09/18 Reason for consult: Mental Health Evaluation Requesting physician: CARLOS SCHILLING - Chief Complaint Chief complaint: "I'm talking with the demons" - History of Present Psychiatric Illness 32 y.o. white male who presented to the ER for acute psychosis. This patient is known to me. Today the patient is calm and cooperative, but tangent during the assessment. He stated that he haven't slept for several days. He stated that his "full attention" have been on facebook, He stated that he's talking with "demons." He stated that these demons are telling him "all types of stuff. He stated that he haven't taken his medication (Invega PO) in weeks. Throughout the interview, the patient appeared preoccupied. He denies SI/HI's and VH's. He denies a poor appetite, recreational drug use, and alcohol consumption (etoh). Medications and Allergies Allergies Allergy/AdvReac Type Severity Reaction Status Date / Time No Known Allergies Allergy Verified 06/05/17 18:54 Home Medications Medication Instructions Recorded Confirmed Last Taken Type Paliperidone Palmitate [Invega 39 mg IM Q4W 01/22/17 04/17/18 08/03/17 History Sustenna] Lisinopril [Zestril] 5 mg PO QDAY 05/26/18 05/26/18 Unknown History hydrOXYzine PAMOATE [Vistaril] 50 mg PO BID 05/26/18 05/26/18 Unknown History Past psychiatric history - Past Medical History Past Medical History: No medical history Past Surgical History: No surgical history - past Psychiatric treatment and history psychiatric treatment history: Several inpatient psy settings in the past. He denies a fam psy hx. - Social History Social history: other ([facility] at [place].) Mental Status Exam - Vital signs Last Vital Signs Temp 97.7 F 08/09/18 08:00 Pulse 110 H 08/09/18 08:47 Resp 14 08/09/18 08:00 BP 129/80 08/09/18 08:47 Pulse Ox 96 08/09/18 08:47 - Exam Narrative exam: MSE: Appearance: calm. cooperative Behavior: regular eye contact Speech: hyper verbal Mood: preoccupied Affect: congruent to mood Thought Process: tangential Thought Content: denies SI/HI's and VH's, delusional, paranoia Motor Activity: lying in bed Cognition: A/O x3 Insight: poor Judgment: poor Results Result Diagrams: 08/09/18 00:02 08/09/18 00:02 Abnormal lab results 08/09/18 08/09/18 08/09/18 Range/Units 00:02 00:02 00:02 WBC 11.8 H (4.5-11.0) K/mm3 Hgb 15.4 H (11.8-15.2) gm/dl MCV 96 H (84-94) fl MCH 33 H (28-32) pg MCHC 35 H (32-34) % Bath % (Auto) 8.0 H (0.0-7.3) % [place] # 0.9 H (0.0-0.8) K/mm3 Seg Neutrophils % 70.5 H (40.0-70.0) % Seg Neutrophils # 8.3 H (1.8-7.7) K/mm3 Potassium 3.5 L (3.6-5.0) mmol/L BUN 6 L (9-20) mg/dL Glucose 144 H (75-100) mg/dL Amylase (27-131) units/L Salicylates < 0.3 L (2.8-20.0) mg/dL Acetaminophen (10.0-30.0) ug/mL 08/09/18 08/09/18 Range/Units 08:57 Unknown WBC (4.5-11.0) K/mm3 Hgb (11.8-15.2) gm/dl MCV (84-94) fl MCH (28-32) pg MCHC (32-34) % Bath % (Auto) (0.0-7.3) % Bath # (0.0-0.8) K/mm3 Seg Neutrophils % (40.0-70.0) % Seg Neutrophils # (1.8-7.7) K/mm3 Potassium (3.6-5.0) mmol/L BUN (9-20) mg/dL Glucose (75-100) mg/dL Amylase 26 L (27-131) units/L Salicylates (2.8-20.0) mg/dL Acetaminophen < 5.0 L (10.0-30.0) ug/mL All other labs normal. Assessment and Plan Assessment and plan: Impression: Schizoaffective DO. Unspecified Anxiety DO. Today the patient is calm and cooperative, but tangent during the assessment. The patient is manic. DDx: R/O Bipolar DO with psychosis Recommendation/Plan: Continue 1013. Dispo: The patient was accepted art [facility] for inpatient psy services. Will staff with Dr Jordon Joseph.
== END 2018-08-09 11:10 | disposition admitted as inpatient to this hospital (09) ==
LOC: ED 23:37
DX: F31.9 Bipolar disorder, unspecified (principal); F20.9 Schizophrenia, unspecified
CPT/HCPCS: 36415; 80048; 80178; 80307; 81001; 82150; 83690; 84075; 84450; 84460; 85025; 99285; G0480; 80320

== ENCOUNTER 2018-08-20 02:45 | Emergency (ER) | payer MEDICAID ==
[2018-08-20 03:24] LABS: Basophils # (Auto) 0.1 K/mm3 (0.0-0.1); Basophils % (Auto) 0.6 % (0.0-1.8); Eosinophils # (Auto) 0.3 K/mm3 (0.0-0.4); Eosinophils % (Auto) 2.4 % (0.0-4.3); Hematocrit 45.6 % (35.5-45.6); Hemoglobin 15.4 gm/dl (11.8-15.2); Lymphocytes # (Auto) 2.5 K/mm3 (1.2-5.4); Lymphocytes % (Auto) 22.7 % (13.4-35.0); Mean Corpuscular HGB Conc 34 % (32-34); Mean Corpuscular Volume 97 fl (84-94); Monocytes # (Auto) 0.8 K/mm3 (0.0-0.8); Monocytes % (Auto) 6.8 % (0.0-7.3); Red Blood Count 4.71 M/mm3 (3.65-5.03); Red Cell Distribution Width 13.7 % (13.2-15.2)
[2018-08-20 03:31] LABS: Platelet Count 206 K/mm3 (140-440)
[2018-08-20 03:41] LABS: Bilirubin,Urine NEG (Negative); Blood,Urine NEG (Negative); Color,Urine Yellow (Yellow); Mucus,Urine 3+ /HPF
[2018-08-20 03:43] LABS: BUN/Creatinine Ratio 10; Blood Urea Nitrogen 8 mg/dL (9-20); Calcium 9.1 mg/dL (8.4-10.2); Hemolysis Index 31
[2018-08-20 03:46] LABS: Amphetamine Screen,Urine PRESUMPTIVE NEGATIVE; Benzodiazepines Screen,Urine PRESUMPTIVE NEGATIVE; Cannabinoid Screen,Urine PRESUMPTIVE NEGATIVE; Cocaine Screen,Urine PRESUMPTIVE NEGATIVE; Methadone Screen,Urine PRESUMPTIVE NEGATIVE; Opiate Screen,Urine PRESUMPTIVE NEGATIVE
--- NOTE | 2018-08-20 04:55 | Emergency Department Report ---
ED Psych HPI - General Chief Complaint: Psych Stated Complaint: MH Time Seen by Provider: 08/20/18 04:40 Source: patient Mode of arrival: Ambulatory - History of Present Illness Initial Comments: Mr. Carrera is a very pleasant 32 yo male with hx of bipolar disorder and schizoaffective disorder who presents with suicidal ideation with plan to harm himself with a gun or jump off a bridge. He feels "rabid". He walked from [facility] to the ED for evaluation. He has been compliant with medication. He denies any physical concerns. Has not been sleeping well. MD Complaint: suicidal ideation -: Gradual, days(s) (several days) Associated Psychiatric Symptoms: depression, suicidal ideation, racing thoughts History of same: Yes Quality: intermittent Improves With: none Worsens With: none Context: new medication(s) Associated Symptoms: denies other symptoms If Self Harm: admits thoughts of - Related Data Home Medications Medication Instructions Recorded Confirmed Last Taken Paliperidone Palmitate [Invega 39 mg IM Q4W 01/22/17 08/20/18 08/03/17 Sustenna] Lisinopril [Zestril] 5 mg PO QDAY 05/26/18 08/20/18 Unknown hydrOXYzine PAMOATE [Vistaril] 50 mg PO BID 05/26/18 08/20/18 Unknown Allergies Allergy/AdvReac Type Severity Reaction Status Date / Time No Known Allergies Allergy Verified 06/05/17 18:54 ED Review of Systems ROS: Stated complaint: MH Other details as noted in HPI Comment: All other systems reviewed and negative Constitutional: denies: fever, malaise Cardiovascular: denies: chest pain ED Past Medical Hx - Past Medical History Previous Medical History?: Yes Hx Hypertension: No Hx CVA: No Hx Heart Attack/AMI: No Hx Congestive Heart Failure: No Hx Diabetes: No Hx Deep Vein Thrombosis: No Hx Pulmonary Embolism: No Hx GERD: No Hx Liver Disease: No Hx Renal Disease: No Hx Sickle Cell Disease: No Hx Arthritis: No Hx Headaches / Migraines: No Hx Seizures: No Hx Kidney Stones: No Hx Psychiatric Treatment: Yes (bipolar, schizophrenia-effective) Hx Asthma: No Hx COPD: No Hx Tuberculosis: No Hx Dementia: No Hx HIV: No - Surgical History Past Surgical History?: Yes Hx Coronary Stent: No Hx Open Heart Surgery: No Hx Pacemaker: No Hx Internal Defibrillator: No Hx Cholecystectomy: No Hx Appendectomy: No Hx Breast Surgery: No Additional Surgical History: glass from foot - Social History Smoking Status: Current Every Day Smoker Substance Use Type: Alcohol, Marijuana - Medications Home Medications: Home Medications Medication Instructions Recorded Confirmed Last Taken Type Paliperidone Palmitate [Invega 39 mg IM Q4W 01/22/17 08/20/18 08/03/17 History Sustenna] Lisinopril [Zestril] 5 mg PO QDAY 05/26/18 08/20/18 Unknown History hydrOXYzine PAMOATE [Vistaril] 50 mg PO BID 05/26/18 08/20/18 Unknown History ED Physical Exam - General Limitations: No Limitations General appearance: alert, in no apparent distress - Head Head exam: Present: atraumatic, normocephalic - Eye Eye exam: Present: normal appearance - ENT ENT exam: Present: mucous membranes moist - Neck Neck exam: Present: normal inspection, full ROM - Respiratory Respiratory exam: Present: normal lung sounds bilaterally. Absent: respiratory distress, wheezes, rales, rhonchi - Cardiovascular Cardiovascular Exam: Present: regular rate, normal rhythm, normal heart sounds. Absent: systolic murmur, diastolic murmur, rubs, gallop - GI/Abdominal GI/Abdominal exam: Present: soft, normal bowel sounds. Absent: distended, tenderness, guarding, rebound - Rectal Rectal exam: Present: deferred - Extremities Exam Extremities exam: Present: normal inspection - Back Exam Back exam: Present: normal inspection - Neurological Exam Neurological exam: Present: alert, oriented X3 - Psychiatric Psychiatric exam: Present: normal affect, normal mood, other (calm appropriate) - Skin Skin exam: Present: warm, dry, intact, normal color. Absent: rash ED Medical Decision Making - Lab Data Result diagrams: 08/20/18 03:00 08/20/18 03:00 Laboratory Results - last 24 hr 08/20/18 08/20/18 08/20/18 03:00 03:00 03:00 WBC RBC Hgb Hct MCV MCH MCHC RDW Plt Count Lymph % (Auto) [place] % (Auto) Eos % (Auto) Baso % (Auto) Lymph # [place] # Eos # Baso # Seg Neutrophils % Seg Neutrophils # Sodium 138 Potassium 4.0 Chloride 99.0 Carbon Dioxide 26 Anion Gap 17 BUN 8 L Creatinine 0.8 Estimated GFR > 60 BUN/Creatinine Ratio 10 Glucose 161 H Calcium 9.1 Urine Color Urine Turbidity Urine pH Ur Specific [place] Urine Protein Urine Glucose (UA) Urine Ketones Urine Blood Urine Nitrite Urine Bilirubin Urine Urobilinogen Ur Leukocyte Esterase Urine WBC (Auto) Urine RBC (Auto) Urine Mucus Salicylates < 0.3 L Urine Opiates Screen Urine Methadone Screen Ur Barbiturates Screen Ur Phencyclidine Scrn Ur Amphetamines Screen U Benzodiazepines Scrn Urine Cocaine Screen U Marijuana (THC) Screen Drugs of Abuse Note Plasma/Serum Alcohol < 0.01 08/20/18 08/20/18 08/20/18 03:00 Unknown Unknown WBC 11.2 H RBC 4.71 Hgb 15.4 H Hct 45.6 MCV 97 H MCH 33 H MCHC 34 RDW 13.7 Plt Count 206 Lymph % (Auto) 22.7 [place] % (Auto) 6.8 Eos % (Auto) 2.4 Baso % (Auto) 0.6 Lymph # 2.5 [place] # 0.8 Eos # 0.3 Baso # 0.1 Seg Neutrophils % 67.5 Seg Neutrophils # 7.6 Sodium Potassium Chloride Carbon Dioxide Anion Gap BUN Creatinine Estimated GFR BUN/Creatinine Ratio Glucose Calcium Urine Color Yellow Urine Turbidity Clear Urine pH 5.0 Ur Specific [place] 1.030 Urine Protein 30 mg/dl Urine Glucose (UA) Neg Urine Ketones Neg Urine Blood Neg Urine Nitrite Neg Urine Bilirubin Neg Urine Urobilinogen 2.0 Ur Leukocyte Esterase Neg Urine WBC (Auto) 1.0 Urine RBC (Auto) 2.0 Urine Mucus 3+ Salicylates Urine Opiates Screen Presumptive negative Urine Methadone Screen Presumptive negative Ur Barbiturates Screen Presumptive negative Ur Phencyclidine Scrn Presumptive negative Ur Amphetamines Screen Presumptive negative U Benzodiazepines Scrn Presumptive negative Urine Cocaine Screen Presumptive negative U Marijuana (THC) Screen Presumptive negative Drugs of Abuse Note Disclamer Plasma/Serum Alcohol - Medical Decision Making Mr. Carrera presents with suicidal ideation with plan to harm himself with a gun or jumping off bridge. He is medically clear for psychiatric care. I reviewed labs which were all within acceptable limits. 1013 involuntary hold instituted with appropriate precautions. Critical care attestation.: If time is entered above; I have spent that time in minutes in the direct care of this critically ill patient, excluding procedure time. ED Disposition Clinical Impression: Suicidal ideation, History of bipolar disorder, History of schizoaffective disorder Disposition: DC-09 OP ADMIT IP TO THIS HOSP Is pt being admited?: No Does the pt Need Aspirin: No Condition: Stable
[2018-08-21 03:02] VITALS: BP 167/104
== END 2018-08-21 05:31 | disposition admitted as inpatient to this hospital (09) ==
LOC: ED 02:45
DX: F25.0 Schizoaffective disorder, bipolar type (principal); F17.200 Nicotine dependence, unspecified, uncomplicated; F12.10 Cannabis abuse, uncomplicated
CPT/HCPCS: 36415; 80048; 80307; 81001; 85025; 99285; G0480; 80320

== ENCOUNTER 2018-09-07 19:23 | Emergency (ER) | payer MEDICAID ==
[2018-09-07 19:55] LABS: Basophils # (Auto) 0.1 K/mm3 (0.0-0.1); Eosinophils # (Auto) 0.2 K/mm3 (0.0-0.4); Eosinophils % (Auto) 1.6 % (0.0-4.3); Lymphocytes # (Auto) 1.9 K/mm3 (1.2-5.4); Mean Corpuscular HGB Conc 36 % (32-34); Mean Corpuscular Volume 95 fl (84-94); Monocytes # (Auto) 0.8 K/mm3 (0.0-0.8); Monocytes % (Auto) 8.1 % (0.0-7.3); Platelet Count 229 K/mm3 (140-440); Red Blood Count 4.51 M/mm3 (3.65-5.03); Red Cell Distribution Width 14.2 % (13.2-15.2)
[2018-09-07 19:58] LABS: Hemoglobin 15.5 gm/dl (11.8-15.2)
[2018-09-07 19:59] LABS: Hematocrit 42.6 % (35.5-45.6)
[2018-09-07 20:11] LABS: BUN/Creatinine Ratio 11; Blood Urea Nitrogen 8 mg/dL (9-20); Calcium 9.1 mg/dL (8.4-10.2); Hemolysis Index 11
[2018-09-07 20:37] LABS: Bacteria,Urine 1+ /HPF (Negative); Bilirubin,Urine NEG (Negative); Blood,Urine SM (Negative); Color,Urine Yellow (Yellow); Mucus,Urine FEW /HPF; Protein,Urine <15 mg/dL mg/dL (Negative); Urobilinogen,Urine < 2.0 mg/dL (<2.0)
[2018-09-07 20:38] LABS: Amphetamine Screen,Urine PRESUMPTIVE NEGATIVE; Cannabinoid Screen,Urine PRESUMPTIVE NEGATIVE; Cocaine Screen,Urine PRESUMPTIVE NEGATIVE; Methadone Screen,Urine PRESUMPTIVE NEGATIVE; Opiate Screen,Urine PRESUMPTIVE NEGATIVE
--- NOTE | 2018-09-07 20:38 | Emergency Department Report ---
HPI - General Chief Complaint: Psych Time Seen by Provider: 09/07/18 19:35 - HPI HPI: 32-year-old male presents to the emergency department for a mental health evaluation. He has a history of schizoaffective disorder and says that he is currently feeling manic. He denies any suicidal or homicidal ideations. He denies any visual hallucinations. He does have auditory hallucinations in which the voices are giving a running commentary about whatever it is that he is doing at that time. He admits to feeling very anxious and he has pressured speech. The patient says "I am rapid cycling." He gets injections of Invega. He says that he has a psychiatrist for follow-up. He also says that he has been trying to self medicate using many cigarettes. He says that he is not getting much sleep secondary to his current condition. ED Past Medical Hx - Past Medical History Previous Medical History?: Yes Hx Hypertension: No Hx CVA: No Hx Heart Attack/AMI: No Hx Congestive Heart Failure: No Hx Diabetes: No Hx Deep Vein Thrombosis: No Hx Pulmonary Embolism: No Hx GERD: No Hx Liver Disease: No Hx Renal Disease: No Hx Sickle Cell Disease: No Hx Arthritis: No Hx Headaches / Migraines: No Hx Seizures: No Hx Kidney Stones: No Hx Psychiatric Treatment: Yes (bipolar, schizophrenia-effective) Hx Asthma: No Hx COPD: No Hx Tuberculosis: No Hx Dementia: No Hx HIV: No - Surgical History Hx Coronary Stent: No Hx Open Heart Surgery: No Hx Pacemaker: No Hx Internal Defibrillator: No Hx Cholecystectomy: No Hx Appendectomy: No Hx Breast Surgery: No Additional Surgical History: glass from foot - Social History Smoking Status: Current Every Day Smoker Substance Use Type: None - Medications Home Medications: Home Medications Medication Instructions Recorded Confirmed Last Taken Type Paliperidone Palmitate [Invega 39 mg IM Q4W 01/22/17 09/07/18 08/03/17 History Sustenna] Lisinopril [Zestril] 5 mg PO QDAY 05/26/18 09/07/18 Unknown History hydrOXYzine PAMOATE [Vistaril] 50 mg PO BID 05/26/18 09/07/18 Unknown History ALPRAZolam [Xanax Xr] 20 mg PO DAILY 09/07/18 09/07/18 Unknown History Nicotine [Nicotine Patch] 1 each TD DAILY 09/07/18 09/07/18 Unknown History ED Review of Systems ROS: Stated complaint: MH Other details as noted in HPI Comment: All other systems reviewed and negative Constitutional: denies: chills, fever Eyes: denies: eye pain, vision change ENT: denies: ear pain, throat pain Respiratory: denies: cough, shortness of breath Cardiovascular: denies: chest pain, palpitations Gastrointestinal: denies: abdominal pain, vomiting Genitourinary: denies: dysuria, discharge Musculoskeletal: denies: back pain, arthralgia Skin: denies: rash, lesions Neurological: denies: headache, weakness Psychiatric: anxiety, auditory hallucinations. denies: visual hallucinations, homicidal thoughts, suicidal thoughts Physical Exam - Physical Exam Vital Signs: Vital Signs 09/07/18 09/07/18 19:27 19:30 Temperature 97.6 F Pulse Rate 127 H 119 H Respiratory 18 20 Rate Blood Pressure 138/70 Blood Pressure 139/101 [Left] O2 Sat by Pulse 96 95 Oximetry Physical Exam: GENERAL: The patient is well-developed well-nourished. HEENT: Normocephalic. Atraumatic. Patient has moist mucous membranes. EYES: Extraocular motions are intact. NECK: Supple. Trachea is midline. CHEST/LUNGS: Clear to auscultation. There is no respiratory distress noted. HEART/CARDIOVASCULAR: Regular. There is no tachycardia. There is no obvious murmur. ABDOMEN: Abdomen is soft, nontender. Patient has normal bowel sounds. SKIN: Skin is warm and dry. NEURO: The patient is awake, alert, and oriented. The patient is cooperative. The patient has no focal neurologic deficits. The patient has normal speech. MUSCULOSKELETAL: There is no tenderness or deformity. There is no limitation range of motion. There is no evidence of acute injury. PSYCH: Patient has some pressured speech. He is anxious but appropriate. ED Course Vital Signs 09/07/18 09/07/18 19:27 19:30 Temperature 97.6 F Pulse Rate 127 H 119 H Respiratory 18 20 Rate Blood Pressure 138/70 Blood Pressure 139/101 [Left] O2 Sat by Pulse 96 95 Oximetry ED Medical Decision Making - Lab Data Result diagrams: 09/07/18 19:41 09/07/18 19:41 - Medical Decision Making This patient, with a history of schizoaffective disorder, presents to the emergency department with complaint of feeling manic. He admits to auditory hallucinations that are basically a running commentary of his life. He denies any visual hallucinations or any homicidal or suicidal ideations. The patient is anxious but appropriate, cognizant, and appears to have a normal decision- making capacity. He does have some pressured speech. The patient was seen by the psychiatric assessment team who agrees that he does not appear to require involuntary inpatient psychiatric treatment and become a 1013. He has been compliant with his psychiatric medication and has good outpatient follow-up. Labs have been mostly unremarkable except for urine drug screen positive for benzodiazepines. Patient's vital signs were stable throughout his ED course. He does have some tachycardia but he is slightly anxious and manic. He will return to the ER with any worsening of his symptoms or any acute distress. - Differential Diagnosis anxiety, bipolar disorder, schizoaffective, schizophrenia, substance abuse Critical Care Time: No Critical care attestation.: If time is entered above; I have spent that time in minutes in the direct care of this critically ill patient, excluding procedure time. ED Disposition Clinical Impression: Schizoaffective disorder Qualifiers: Schizoaffective disorder type: unspecified Qualified Code(s): F25.9 - Schizoaffective disorder, unspecified Disposition: DC-01 TO HOME OR SELFCARE Is pt being admited?: No Condition: Stable Instructions: Schizoaffective Disorder (ED) Additional Instructions: Please follow-up with your psychiatrist tomorrow without fail. Return to the emergency department with any worsening of her symptoms, thoughts of harming herself or others, or with any acute distress. Referrals: Psychiatrist, Your [Other] - [facility] Time of Disposition: 21:48
[2018-09-07 20:54] LABS: Benzodiazepines Screen,Urine PRESUMPTIVE POSITIVE
[2018-09-07 22:15] VITALS: BP 149/100
== END 2018-09-07 22:14 | disposition home or self-care (01) ==
LOC: ED 19:23
DX: F25.9 Schizoaffective disorder, unspecified (principal); F31.9 Bipolar disorder, unspecified; F17.200 Nicotine dependence, unspecified, uncomplicated
CPT/HCPCS: 36415; 80048; 80307; 81001; 85025; 99284; G0480; 80320

== ENCOUNTER 2018-10-22 13:25 | Emergency (ER) | payer MEDICAID ==
--- NOTE | 2018-10-22 14:08 | Emergency Department Report ---
Blank Doc - Documentation Documentation: pt states he is having visual and auditory hallucinations states that "people can hear his thoughts" and "racist thoughts" no SI no HI PMHx HTN, schizoaffective +smoker occ drinker no drug use
[2018-10-22 14:50] LABS: Basophils # (Auto) 0.1 K/mm3 (0.0-0.1); Basophils % (Auto) 0.5 % (0.0-1.8); Eosinophils # (Auto) 0.3 K/mm3 (0.0-0.4); Eosinophils % (Auto) 1.9 % (0.0-4.3); Hematocrit 42.3 % (35.5-45.6); Hemoglobin 14.8 gm/dl (11.8-15.2); Lymphocytes # (Auto) 1.6 K/mm3 (1.2-5.4); Lymphocytes % (Auto) 10.3 % (13.4-35.0); Mean Corpuscular HGB Conc 35 % (32-34); Mean Corpuscular Volume 97 fl (84-94); Monocytes # (Auto) 0.7 K/mm3 (0.0-0.8); Monocytes % (Auto) 4.8 % (0.0-7.3); Platelet Count 221 K/mm3 (140-440); Red Blood Count 4.37 M/mm3 (3.65-5.03); Red Cell Distribution Width 15.1 % (13.2-15.2)
[2018-10-22 15:13] LABS: Alanine Aminotransferase 47 units/L (7-56); Albumin 4.1 g/dL (3.9-5); BUN/Creatinine Ratio 8; Blood Urea Nitrogen 7 mg/dL (9-20); Calcium 8.9 mg/dL (8.4-10.2); Hemolysis Index 32
--- NOTE | 2018-10-22 17:10 | Emergency Department Report ---
ED Psych HPI - General Chief Complaint: Psych Stated Complaint: PARANOID Time Seen by Provider: 10/22/18 14:06 Source: patient Mode of arrival: Ambulatory - History of Present Illness Initial Comments: Patient is 32 years old male with history of schizoaffective disorder. Patient presented to the ER stating that he is having racing thoughts and he is feeling paranoid. He feel like people are reading his thoughts and he can hear them talking about him in a racist away. Patient denied any suicidal or homicidal ideation. MD Complaint: altered mental status Associated Psychiatric Symptoms: racing thoughts, auditory hallucinations History of same: Yes Quality: constant - Related Data Home Medications Medication Instructions Recorded Confirmed Last Taken Paliperidone Palmitate [Invega 39 mg IM Q4W 01/22/17 09/07/18 08/03/17 Sustenna] Lisinopril [Zestril] 5 mg PO QDAY 05/26/18 09/07/18 Unknown hydrOXYzine PAMOATE [Vistaril] 50 mg PO BID 05/26/18 09/07/18 Unknown ALPRAZolam [Xanax Xr] 20 mg PO DAILY 09/07/18 09/07/18 Unknown Nicotine [Nicotine Patch] 1 each TD DAILY 09/07/18 09/07/18 Unknown Allergies Allergy/AdvReac Type Severity Reaction Status Date / Time No Known Allergies Allergy Verified 10/22/18 13:27 ED Review of Systems ROS: Stated complaint: PARANOID Other details as noted in HPI Comment: All other systems reviewed and negative Constitutional: denies: chills, fever Respiratory: denies: cough, orthopnea, shortness of breath, SOB with exertion, SOB at rest, wheezing Cardiovascular: denies: chest pain, palpitations Gastrointestinal: denies: abdominal pain, nausea, vomiting, diarrhea, constipation, hematemesis, melena, hematochezia Musculoskeletal: denies: back pain Neurological: denies: headache, weakness Psychiatric: denies: anxiety, depression, auditory hallucinations, visual hallucinations, homicidal thoughts, suicidal thoughts ED Past Medical Hx - Past Medical History Previous Medical History?: Yes Hx Hypertension: No Hx CVA: No Hx Heart Attack/AMI: No Hx Congestive Heart Failure: No Hx Diabetes: No Hx Deep Vein Thrombosis: No Hx Pulmonary Embolism: No Hx GERD: No Hx Liver Disease: No Hx Renal Disease: No Hx Sickle Cell Disease: No Hx Arthritis: No Hx Headaches / Migraines: No Hx Seizures: No Hx Kidney Stones: No Hx Psychiatric Treatment: Yes (bipolar, schizophrenia-effective) Hx Asthma: No Hx COPD: No Hx Tuberculosis: No Hx Dementia: No Hx HIV: No - Surgical History Past Surgical History?: No Hx Coronary Stent: No Hx Open Heart Surgery: No Hx Pacemaker: No Hx Internal Defibrillator: No Hx Cholecystectomy: No Hx Appendectomy: No Hx Breast Surgery: No Additional Surgical History: glass from foot - Social History Smoking Status: Current Every Day Smoker Substance Use Type: None - Medications Home Medications: Home Medications Medication Instructions Recorded Confirmed Last Taken Type Paliperidone Palmitate [Invega 39 mg IM Q4W 01/22/17 09/07/18 08/03/17 History Sustenna] Lisinopril [Zestril] 5 mg PO QDAY 05/26/18 09/07/18 Unknown History hydrOXYzine PAMOATE [Vistaril] 50 mg PO BID 05/26/18 09/07/18 Unknown History ALPRAZolam [Xanax Xr] 20 mg PO DAILY 09/07/18 09/07/18 Unknown History Nicotine [Nicotine Patch] 1 each TD DAILY 09/07/18 09/07/18 Unknown History ED Physical Exam - General Limitations: No Limitations General appearance: alert, in no apparent distress - Head Head exam: Present: atraumatic, normocephalic, normal inspection - Eye Eye exam: Present: normal appearance - ENT ENT exam: Present: normal exam, normal orophraynx, mucous membranes moist - Neck Neck exam: Present: normal inspection, full ROM. Absent: tenderness, meningismus, lymphadenopathy, thyromegaly - Respiratory Respiratory exam: Present: normal lung sounds bilaterally. Absent: respiratory distress, wheezes, rales, rhonchi, stridor, chest wall tenderness, accessory muscle use, decreased breath sounds, prolonged expiratory - Cardiovascular Cardiovascular Exam: Present: regular rate, normal rhythm, normal heart sounds - GI/Abdominal GI/Abdominal exam: Present: soft, normal bowel sounds. Absent: distended, tenderness, guarding, rebound, rigid, organomegaly, mass, bruit, pulsatile mass, hernia - Extremities Exam Extremities exam: Present: normal inspection, full ROM, normal capillary refill. Absent: tenderness, pedal edema, calf tenderness - Back Exam Back exam: Present: normal inspection, full ROM. Absent: tenderness, CVA tenderness (R), CVA tenderness (L) - Neurological Exam Neurological exam: Present: alert, oriented X3, CN II-XII intact, normal gait, reflexes normal - Psychiatric Psychiatric exam: Present: normal mood. Absent: depressed, agitated, anxious, flat affect, manic, homicidal ideation, suicidal ideation - Skin Skin exam: Present: warm, intact, normal color ED Course Vital Signs 10/22/18 10/22/18 10/23/18 14:09 19:45 01:11 Temperature 98.6 F 97.8 F 97.7 F Pulse Rate 123 H 98 H 77 Respiratory 20 18 16 Rate Blood Pressure 124/75 Blood Pressure 138/80 104/58 [Right] O2 Sat by Pulse 96 95 97 Oximetry ED Medical Decision Making - Lab Data Result diagrams: 10/22/18 14:30 10/22/18 14:30 Critical care attestation.: If time is entered above; I have spent that time in minutes in the direct care of this critically ill patient, excluding procedure time. ED Disposition Clinical Impression: History of schizophrenia Disposition: DC/TX-65 PSY HOSP/PSY UNIT Is pt being admited?: No Condition: Stable Referrals: SELENE GONSALVES MD [Primary Care Provider] - 3-5 Days
[2018-10-23 02:15] LABS: Bilirubin,Urine NEG (Negative); Blood,Urine NEG (Negative); Color,Urine Yellow (Yellow); Mucus,Urine 3+ /HPF; Protein,Urine <15 mg/dL mg/dL (Negative)
[2018-10-23 02:22] LABS: Amphetamine Screen,Urine PRESUMPTIVE NEGATIVE; Benzodiazepines Screen,Urine PRESUMPTIVE NEGATIVE; Cannabinoid Screen,Urine PRESUMPTIVE NEGATIVE; Cocaine Screen,Urine PRESUMPTIVE NEGATIVE; Methadone Screen,Urine PRESUMPTIVE NEGATIVE; Opiate Screen,Urine PRESUMPTIVE NEGATIVE
--- NOTE | 2018-10-23 08:51 | Consultation ---
History of Present Illness - Reason for Consult Consult date: 10/23/18 Reason for consult: Mental Health Evaluation Requesting physician: CHARI MARTINI - Chief Complaint Chief complaint: "I am having a hard day" - History of Present Psychiatric Illness 32 y.o. who presented to the ER for psychosis. This patient is known to me. Today the patent is calm and cooperative during the assessment. He stated that he's hearing voices from children. He feel like the messages he's receiving is racist content. He is adamant that he isn't a racist. He could not elaborate in details the racist content he's hearing. Throughout the interview, the patient appears paranoid and preoccupied. He is known to answer questions when asked, but today that isn't the case. He stated, "Something isn't right." He isn't sure when he received his last monthly Invega injection. He does not feel that the Invega injection is keeping him "mentally stable." He denies SI/HI's and VH's. He denies a poor appetite, but acknowledged erratic sleep lately. He denies recreational drug use and alcohol consumption (etoh). Medications and Allergies Allergies Allergy/AdvReac Type Severity Reaction Status Date / Time No Known Allergies Allergy Verified 10/22/18 13:27 Home Medications Medication Instructions Recorded Confirmed Last Taken Type Paliperidone Palmitate [Invega 39 mg IM Q4W 01/22/17 09/07/18 08/03/17 History Sustenna] Lisinopril [Zestril] 5 mg PO QDAY 05/26/18 09/07/18 Unknown History hydrOXYzine PAMOATE [Vistaril] 50 mg PO BID 05/26/18 09/07/18 Unknown History ALPRAZolam [Xanax Xr] 20 mg PO DAILY 09/07/18 09/07/18 Unknown History Nicotine [Nicotine Patch] 1 each TD DAILY 09/07/18 09/07/18 Unknown History Past psychiatric history - Past Medical History Past Medical History: No medical history Past Surgical History: No surgical history - past Psychiatric treatment and history psychiatric treatment history: Several inpatient psy settings. Denies a fam psy hx. - Social History Social history: other (Reside at [place]) Mental Status Exam - Vital signs Last Vital Signs Temp 98.2 F 10/23/18 08:00 Pulse 75 10/23/18 08:00 Resp 18 10/23/18 08:43 BP 139/90 10/23/18 08:00 Pulse Ox 98 10/23/18 08:00 - Exam Narrative exam: MSE: Appearance: calm. cooperative Behavior: regular eye contact Speech: regular rate and tone Mood: "not well" Affect: flat Thought Process: circumstantial Thought Content: denies SI/HI's and VH's, delusional, paranoid Motor Activity: lying in bed Cognition: A/O x3 Insight:variable Judgment: variable Results Result Diagrams: 10/22/18 14:30 10/22/18 14:30 Abnormal lab results 10/22/18 10/22/18 10/22/18 Range/Units 14:30 14:30 14:30 WBC 15.1 H (4.5-11.0) K/mm3 MCV 97 H (84-94) fl MCH 34 H (28-32) pg MCHC 35 H (32-34) % Lymph % (Auto) 10.3 L (13.4-35.0) % Seg Neutrophils % 82.5 H (40.0-70.0) % Seg Neutrophils # 12.4 H (1.8-7.7) K/mm3 BUN 7 L (9-20) mg/dL Glucose 144 H (75-100) mg/dL Salicylates < 0.3 L (2.8-20.0) mg/dL Acetaminophen (10.0-30.0) ug/mL 10/22/18 Range/Units 14:30 WBC (4.5-11.0) K/mm3 MCV (84-94) fl MCH (28-32) pg MCHC (32-34) % Lymph % (Auto) (13.4-35.0) % Seg Neutrophils % (40.0-70.0) % Seg Neutrophils # (1.8-7.7) K/mm3 BUN (9-20) mg/dL Glucose (75-100) mg/dL Salicylates (2.8-20.0) mg/dL Acetaminophen < 5.0 L (10.0-30.0) ug/mL All other labs normal. Assessment and Plan Assessment and plan: Impression: Unspecified Psychosis. Hx of Schizoaffective DO. Today the patient is calm and cooperative during the assessment. UDS is negative. DDx: Bipolar DO with psychosis, Schizophrenia Recommendation/Plan: Continue 1013 and start Zyprexa 5 mg Po HS for psychosis, Koppel 300 mg PO BId for mood, and Cogentin 0.5 mg PO HS for EPS prevention. Discussed possible metabolic side effects of Zyprexa with patient, he verbalized understanding. Dispo: The patient was referred to inpatient psy services. Will staff with Dr Jordon Joseph.
[2018-10-23] MEDS: LITHOBID ER PO SCH ×2 (10:33→22:24)
[2018-10-23 20:41] VITALS: BP 138/81
[2018-10-23] MEDS ORDERED: COGENTIN PO SCH (22:00)
== END 2018-10-24 00:13 ==
LOC: ED 13:25
DX: F20.0 Paranoid schizophrenia (principal); F31.9 Bipolar disorder, unspecified; F17.200 Nicotine dependence, unspecified, uncomplicated
CPT/HCPCS: 36415; 80053; 80178; 80307; 81001; 85025; 99285; G0480; 80320

== ENCOUNTER 2019-01-01 23:20 | Emergency (ER) | payer MEDICAID ==
--- NOTE | 2019-01-02 00:17 | Emergency Department Report ---
ED Psych HPI - General Chief Complaint: Psych Stated Complaint: JANIE EVLAWSON Time Seen by Provider: 01/01/19 23:55 Source: EMS Mode of arrival: Ambulatory - History of Present Illness Initial Comments: Patient is 33 years old male with history of schizoaffective disorder. Patient brought to the emergency room via EMS from personal [facility] for evaluation of depression and suicidal ideation. Patient stated that he feels very depressed and he is thinking about killing himself. Patient stated that he has multiple plans but he did not pick one yet. He stated that he thinking about gun and also thinking about swimming into a sabillon and tell he is unable to swim anymore. Patient denied any homicidal ideation. No visual or auditory symptoms. MD Complaint: suicidal ideation, feels depressed Associated Psychiatric Symptoms: depression, suicidal ideation History of same: Yes Quality: constant Associated Symptoms: denies other symptoms Treatments Prior to Arrival: none If Self Harm: admits thoughts of, has plan - Related Data Home Medications Medication Instructions Recorded Confirmed Last Taken Paliperidone Palmitate [Invega 39 mg IM Q4W 01/22/17 10/23/18 08/03/17 Sustenna] Lisinopril [Zestril] 5 mg PO QDAY 05/26/18 10/23/18 Unknown hydrOXYzine PAMOATE [Vistaril] 50 mg PO BID 05/26/18 10/23/18 Unknown ALPRAZolam [Xanax Xr] 20 mg PO DAILY 09/07/18 10/23/18 Unknown Nicotine [Nicotine Patch] 1 each TD DAILY 09/07/18 10/23/18 Unknown Allergies Allergy/AdvReac Type Severity Reaction Status Date / Time No Known Allergies Allergy Verified 10/22/18 13:27 ED Review of Systems ROS: Stated complaint: MH EVAL Other details as noted in HPI Comment: All other systems reviewed and negative Constitutional: denies: chills, fever Respiratory: denies: cough, orthopnea, shortness of breath, SOB with exertion Cardiovascular: denies: chest pain, palpitations Gastrointestinal: denies: abdominal pain, nausea, vomiting Musculoskeletal: denies: back pain Neurological: denies: headache, weakness Psychiatric: depression, suicidal thoughts. denies: auditory hallucinations, visual hallucinations, homicidal thoughts ED Past Medical Hx - Past Medical History Previous Medical History?: Yes Hx Hypertension: No Hx CVA: No Hx Heart Attack/AMI: No Hx Congestive Heart Failure: No Hx Diabetes: No Hx Deep Vein Thrombosis: No Hx Pulmonary Embolism: No Hx GERD: No Hx Liver Disease: No Hx Renal Disease: No Hx Sickle Cell Disease: No Hx Arthritis: No Hx Headaches / Migraines: No Hx Seizures: No Hx Kidney Stones: No Hx Psychiatric Treatment: Yes (bipolar, schizophrenia-effective) Hx Asthma: No Hx COPD: No Hx Tuberculosis: No Hx Dementia: No Hx HIV: No - Surgical History Past Surgical History?: Yes Hx Coronary Stent: No Hx Open Heart Surgery: No Hx Pacemaker: No Hx Internal Defibrillator: No Hx Cholecystectomy: No Hx Appendectomy: No Hx Breast Surgery: No Additional Surgical History: glass from foot - Social History Smoking Status: Current Every Day Smoker - Medications Home Medications: Home Medications Medication Instructions Recorded Confirmed Last Taken Type Paliperidone Palmitate [Invega 39 mg IM Q4W 01/22/17 10/23/18 08/03/17 History Sustenna] Lisinopril [Zestril] 5 mg PO QDAY 05/26/18 10/23/18 Unknown History hydrOXYzine PAMOATE [Vistaril] 50 mg PO BID 05/26/18 10/23/18 Unknown History ALPRAZolam [Xanax Xr] 20 mg PO DAILY 09/07/18 10/23/18 Unknown History Nicotine [Nicotine Patch] 1 each TD DAILY 09/07/18 10/23/18 Unknown History ED Physical Exam - General Limitations: No Limitations General appearance: alert, in no apparent distress - Head Head exam: Present: atraumatic, normocephalic, normal inspection - Eye Eye exam: Present: normal appearance, PERRL - ENT ENT exam: Present: normal exam, normal orophraynx, mucous membranes moist - Neck Neck exam: Present: normal inspection, full ROM. Absent: tenderness, meningismus, lymphadenopathy, thyromegaly - Respiratory Respiratory exam: Present: normal lung sounds bilaterally - Cardiovascular Cardiovascular Exam: Present: regular rate, normal rhythm, normal heart sounds - GI/Abdominal GI/Abdominal exam: Present: soft, normal bowel sounds. Absent: distended, tenderness, guarding, rebound, rigid, hypoactive bowel sounds, organomegaly, mass, bruit, pulsatile mass - Extremities Exam Extremities exam: Present: normal inspection, full ROM, normal capillary refill - Back Exam Back exam: Present: normal inspection, full ROM. Absent: CVA tenderness (R), CVA tenderness (L), muscle spasm, paraspinal tenderness, vertebral tenderness - Neurological Exam Neurological exam: Present: alert, oriented X3, CN II-XII intact, normal gait, reflexes normal - Psychiatric Psychiatric exam: Present: depressed, suicidal ideation. Absent: agitated, anxious, flat affect, manic, homicidal ideation - Skin Skin exam: Present: warm, intact, normal color ED Course Vital Signs 01/02/19 00:00 Temperature 98.6 F Pulse Rate 84 Respiratory 16 Rate Blood Pressure 128/84 O2 Sat by Pulse 99 Oximetry Critical care attestation.: If time is entered above; I have spent that time in minutes in the direct care of this critically ill patient, excluding procedure time. ED Disposition Clinical Impression: Suicidal ideation, Depression Disposition: DC/TX-65 PSY HOSP/PSY UNIT Is pt being admited?: No Condition: Stable
[2019-01-02 00:26] LABS: Basophils # (Auto) 0.1 K/mm3 (0.0-0.1); Basophils % (Auto) 0.9 % (0.0-1.8); Eosinophils # (Auto) 0.2 K/mm3 (0.0-0.4); Hematocrit 44.9 % (35.5-45.6); Hemoglobin 15.5 gm/dl (11.8-15.2); Lymphocytes # (Auto) 2.2 K/mm3 (1.2-5.4); Lymphocytes % (Auto) 22.2 % (13.4-35.0); Mean Corpuscular HGB Conc 35 % (32-34); Mean Corpuscular Volume 94 fl (84-94); Monocytes # (Auto) 0.9 K/mm3 (0.0-0.8); Monocytes % (Auto) 8.5 % (0.0-7.3); Platelet Count 223 K/mm3 (140-440); Red Blood Count 4.75 M/mm3 (3.65-5.03); Red Cell Distribution Width 14.7 % (13.2-15.2)
[2019-01-02 00:46] LABS: BUN/Creatinine Ratio 11; Blood Urea Nitrogen 10 mg/dL (9-20); Calcium 9.1 mg/dL (8.4-10.2); Hemolysis Index 13
[2019-01-02 09:27] LABS: Bilirubin,Urine NEG (Negative); Blood,Urine NEG (Negative); Color,Urine Yellow (Yellow); Mucus,Urine 3+ /HPF; Protein,Urine <15 mg/dL mg/dL (Negative)
[2019-01-02 09:53] LABS: Amphetamine Screen,Urine PRESUMPTIVE NEGATIVE; Benzodiazepines Screen,Urine PRESUMPTIVE NEGATIVE; Cannabinoid Screen,Urine PRESUMPTIVE NEGATIVE; Cocaine Screen,Urine PRESUMPTIVE NEGATIVE; Methadone Screen,Urine PRESUMPTIVE NEGATIVE; Opiate Screen,Urine PRESUMPTIVE NEGATIVE
--- NOTE | 2019-01-02 12:51 | Consultation ---
History of Present Illness - Reason for Consult Consult date: 01/02/19 Reason for consult: Mental Health Evaluation Requesting physician: CHARI MARTINI - Chief Complaint Chief complaint: "I am controlling people's thoughts" - History of Present Psychiatric Illness 33 y.o. male who presented to the ER for SI's and delusional thoughts. This patient is known to me. Today the patient was calm during the assessment. He stated that he is controlling peoples' minds. He stated that the "stress" he is experiencing from controlling people (their thoughts) have made him suicidal. He would not confirm or deny a suicide plan when asked. He stated that he is hearing voices as well, but they are not telling him to do unsafe acts at this time. His explanation for controlling the minds of others wasn't logical. He stated being compliant with his medications. He stated that he received the Invega injection "last Wednesday" from [facility]. He denies HI's and VH's. He denies a poor appetite and erratic sleep. He denies recreational drug use and alcohol consumption (etoh). Medications and Allergies Allergies Allergy/AdvReac Type Severity Reaction Status Date / Time No Known Allergies Allergy Verified 10/22/18 13:27 Home Medications Medication Instructions Recorded Confirmed Last Taken Type Paliperidone Palmitate [Invega 39 mg IM Q4W 01/22/17 01/02/19 08/03/17 History Sustenna] Lisinopril [Zestril] 5 mg PO QDAY 05/26/18 01/02/19 Unknown History hydrOXYzine PAMOATE [Vistaril] 50 mg PO BID 05/26/18 01/02/19 Unknown History ALPRAZolam [Xanax Xr] 20 mg PO DAILY 09/07/18 01/02/19 Unknown History Nicotine [Nicotine Patch] 1 each TD DAILY 09/07/18 01/02/19 Unknown History Past psychiatric history - Past Medical History Past Medical History: No medical history Past Surgical History: No surgical history - past Psychiatric treatment and history psychiatric treatment history: Several inpatient psy settings. Denies a fam psy hx. - Social History Social history: other ([facility] Mental Status Exam - Vital signs Last Vital Signs Temp 98.4 F 01/02/19 08:06 Pulse 98 H 01/02/19 08:06 Resp 20 01/02/19 08:06 BP 145/90 01/02/19 08:06 Pulse Ox 96 01/02/19 08:06 - Exam Narrative exam: MSE: Appearance: calm Behavior: regular eye contact Speech: regular rate and tone Mood: "tired" Affect: flat Thought Process: circumstantial Thought Content: denies HI's and VH's, delusional Motor Activity: lying in bed Cognition: A/O x3 Insight:variable Judgment: poor Results Result Diagrams: 01/02/19 00:11 01/02/19 00:11 Abnormal lab results 01/02/19 01/02/19 01/02/19 Range/Units 00:11 00:11 00:11 Hgb 15.5 H (11.8-15.2) gm/dl MCH 33 H (28-32) pg MCHC 35 H (32-34) % [place]anan % (Auto) 8.5 H (0.0-7.3) % [place]anan # 0.9 H (0.0-0.8) K/mm3 Glucose 107 H (75-100) mg/dL Salicylates < 0.3 L (2.8-20.0) mg/dL Acetaminophen (10.0-30.0) ug/mL 01/02/19 Range/Units 00:11 Hgb (11.8-15.2) gm/dl MCH (28-32) pg MCHC (32-34) % [place]anan % (Auto) (0.0-7.3) % [place]anan # (0.0-0.8) K/mm3 Glucose (75-100) mg/dL Salicylates (2.8-20.0) mg/dL Acetaminophen < 5.0 L (10.0-30.0) ug/mL All other labs normal. Assessment and Plan Assessment and plan: Impression: Schizoaffective DO. Today the patient was calm during the assessment. UDS is negative. DDx: Bipolar DO with psychosis, Schizophrenia Recommendation/Plan: Continue 1013 and start [place] 300 mg PO BID for mood. The patient receive the monthly Invega injection. Dispo: The patient was referred to inpatient psy services. Will staff with Dr Jordon Joseph.
[2019-01-02] MEDS ORDERED: LITHOBID ER PO SCH (13:00)
[2019-01-02 14:29] VITALS: BP 141/78
== END 2019-01-02 15:58 ==
LOC: ED 23:20 → EEVIPCON 23:20 → ED 01-02 15:58
DX: F31.9 Bipolar disorder, unspecified (principal); F20.9 Schizophrenia, unspecified; F17.200 Nicotine dependence, unspecified, uncomplicated; Z79.899 Other long term (current) drug therapy
CPT/HCPCS: 36415; 80048; 80178; 80307; 80320; 81001; 85025; 99285; G0480

== ENCOUNTER 2019-01-24 10:16 | Emergency (ER) | payer MEDICAID ==
[2019-01-24 10:24] VITALS: BP 132/93
--- NOTE | 2019-01-24 11:00 | Emergency Department Report ---
ED ENT HPI - General Chief complaint: Earache Stated complaint: EAR PAIN Time Seen by Provider: 01/24/19 10:54 Source: patient, EMS Mode of arrival: Ambulatory Limitations: No Limitations - History of Present Illness MD complaint: ear pain (right) -: days(s) (3) Location: R ear Severity: moderate Severity scale (0 -10): 3 Improves with: none Worsens with: none Associated Symptoms: denies: fever, cough, gum swelling - Related Data Home Medications Medication Instructions Recorded Confirmed Last Taken Paliperidone Palmitate [Invega 39 mg IM Q4W 01/22/17 01/02/19 08/03/17 Sustenna] Lisinopril [Zestril] 5 mg PO QDAY 05/26/18 01/02/19 Unknown hydrOXYzine PAMOATE [Vistaril] 50 mg PO BID 05/26/18 01/02/19 Unknown ALPRAZolam [Xanax Xr] 20 mg PO DAILY 09/07/18 01/02/19 Unknown Nicotine [Nicotine Patch] 1 each TD DAILY 09/07/18 01/02/19 Unknown Allergies Allergy/AdvReac Type Severity Reaction Status Date / Time No Known Allergies Allergy Verified 10/22/18 13:27 ED Dental HPI - General Chief complaint: Earache Stated complaint: EAR PAIN Time Seen by Provider: 01/24/19 10:54 Source: patient, EMS Mode of arrival: Ambulatory Limitations: No Limitations - Related Data Home Medications Medication Instructions Recorded Confirmed Last Taken Paliperidone Palmitate [Invega 39 mg IM Q4W 01/22/17 01/02/19 08/03/17 Sustenna] Lisinopril [Zestril] 5 mg PO QDAY 05/26/18 01/02/19 Unknown hydrOXYzine PAMOATE [Vistaril] 50 mg PO BID 05/26/18 01/02/19 Unknown ALPRAZolam [Xanax Xr] 20 mg PO DAILY 09/07/18 01/02/19 Unknown Nicotine [Nicotine Patch] 1 each TD DAILY 09/07/18 01/02/19 Unknown Allergies Allergy/AdvReac Type Severity Reaction Status Date / Time No Known Allergies Allergy Verified 10/22/18 13:27 ED Review of Systems ROS: Stated complaint: EAR PAIN Other details as noted in HPI Comment: All other systems reviewed and negative Constitutional: denies: chills, fever ENT: ear pain, congestion Respiratory: denies: cough Gastrointestinal: denies: abdominal pain, nausea Musculoskeletal: denies: back pain Neurological: denies: headache, weakness, numbness, paresthesias, confusion, abnormal gait Psychiatric: denies: anxiety, depression, auditory hallucinations, visual hallucinations, homicidal thoughts, suicidal thoughts ED Past Medical Hx - Past Medical History Previous Medical History?: Yes Hx Hypertension: Yes Hx CVA: No Hx Heart Attack/AMI: No Hx Congestive Heart Failure: No Hx Diabetes: No Hx Deep Vein Thrombosis: No Hx Pulmonary Embolism: No Hx GERD: No Hx Liver Disease: No Hx Renal Disease: No Hx Sickle Cell Disease: No Hx Arthritis: No Hx Headaches / Migraines: No Hx Seizures: No Hx Kidney Stones: No Hx Psychiatric Treatment: Yes (bipolar, schizophrenia-effective) Hx Asthma: No Hx COPD: No Hx Tuberculosis: No Hx Dementia: No Hx HIV: No - Surgical History Hx Coronary Stent: No Hx Open Heart Surgery: No Hx Pacemaker: No Hx Internal Defibrillator: No Hx Cholecystectomy: No Hx Appendectomy: No Hx Breast Surgery: No Additional Surgical History: to remove glass from foot as a child - Social History Smoking Status: Current Every Day Smoker Substance Use Type: None - Medications Home Medications: Home Medications Medication Instructions Recorded Confirmed Last Taken Type Paliperidone Palmitate [Invega 39 mg IM Q4W 01/22/17 01/02/19 08/03/17 History Sustenna] Lisinopril [Zestril] 5 mg PO QDAY 05/26/18 01/02/19 Unknown History hydrOXYzine PAMOATE [Vistaril] 50 mg PO BID 05/26/18 01/02/19 Unknown History ALPRAZolam [Xanax Xr] 20 mg PO DAILY 09/07/18 01/02/19 Unknown History Nicotine [Nicotine Patch] 1 each TD DAILY 09/07/18 01/02/19 Unknown History ED Physical Exam - General Limitations: No Limitations General appearance: alert, in no apparent distress - Head Head exam: Present: atraumatic, normocephalic, normal inspection - Eye Eye exam: Present: normal appearance - ENT ENT exam: Present: mucous membranes moist, other (right tympanic membrane erythema.) - Neck Neck exam: Present: normal inspection, full ROM. Absent: tenderness, meningismus, lymphadenopathy, thyromegaly - Respiratory Respiratory exam: Present: normal lung sounds bilaterally - Cardiovascular Cardiovascular Exam: Present: regular rate, normal rhythm, normal heart sounds - GI/Abdominal GI/Abdominal exam: Present: soft, normal bowel sounds. Absent: distended, t enderness, guarding, rebound, rigid - Extremities Exam Extremities exam: Present: normal inspection - Back Exam Back exam: Present: normal inspection - Neurological Exam Neurological exam: Present: alert, oriented X3, CN II-XII intact, normal gait, reflexes normal - Psychiatric Psychiatric exam: Present: normal mood. Absent: agitated, anxious, manic, homicidal ideation, suicidal ideation - Skin Skin exam: Present: warm, intact, normal color ED Course Vital Signs 01/24/19 10:22 Temperature 97.5 F L Pulse Rate 98 H Respiratory 20 Rate Blood Pressure 132/93 O2 Sat by Pulse 96 Oximetry Critical care attestation.: If time is entered above; I have spent that time in minutes in the direct care of this critically ill patient, excluding procedure time. ED Disposition Clinical Impression: Right otitis media Disposition: DC-01 TO HOME OR SELFCARE Is pt being admited?: No Condition: Stable Instructions: Otitis Media (ED) Referrals: [facility] [Provider Group] - 3-5 Days
== END 2019-01-24 11:11 | disposition home or self-care (01) ==
LOC: ED 10:16
DX: H66.91 Otitis media, unspecified, right ear (principal); I10 Essential (primary) hypertension; F31.9 Bipolar disorder, unspecified; F25.9 Schizoaffective disorder, unspecified; F17.200 Nicotine dependence, unspecified, uncomplicated; Z79.899 Other long term (current) drug therapy
CPT/HCPCS: 99283

== ENCOUNTER 2019-01-25 09:20 | Emergency (ER) | payer MEDICAID ==
[2019-01-25 10:09] LABS: Basophils % (Auto) 0.4 % (0.0-1.8); Eosinophils % (Auto) 0.1 % (0.0-4.3); Lymphocytes # (Auto) 1.1 K/mm3 (1.2-5.4); Lymphocytes % (Auto) 10.8 % (13.4-35.0); Mean Corpuscular HGB Conc 36 % (32-34); Mean Corpuscular Volume 93 fl (84-94); Monocytes # (Auto) 0.6 K/mm3 (0.0-0.8); Monocytes % (Auto) 6.1 % (0.0-7.3); Platelet Count 267 K/mm3 (140-440); Red Blood Count 4.85 M/mm3 (3.65-5.03); Red Cell Distribution Width 14.3 % (13.2-15.2)
[2019-01-25 10:18] LABS: Hematocrit 45.2 % (35.5-45.6); Hemoglobin 16.2 gm/dl (11.8-15.2)
[2019-01-25 10:23] LABS: BUN/Creatinine Ratio 13; Blood Urea Nitrogen 9 mg/dL (9-20); Calcium 9.6 mg/dL (8.4-10.2); Hemolysis Index 2
--- NOTE | 2019-01-25 12:06 | Emergency Department Report ---
ED General Adult HPI - General Chief complaint: Psych Stated complaint: SUICIDAL Time Seen by Provider: 01/25/19 10:28 Source: patient Mode of arrival: Ambulatory Limitations: No Limitations - History of Present Illness Initial comments: Patient presents to the emergency department with a chief complaint of suicidal ideation. Patient states for the last couple days he has had thoughts of shooting himself. Patient does not have access to a gun. Patient denies auditory or visual hallucinations. Also denies homicidal ideations. -: Gradual Consistency: constant Improves with: none Worsens with: none Associated Symptoms: denies other symptoms Treatments Prior to Arrival: none - Related Data Home Medications Medication Instructions Recorded Confirmed Last Taken Paliperidone Palmitate [Invega 39 mg IM Q4W 01/22/17 01/02/19 08/03/17 Sustenna] Lisinopril [Zestril] 5 mg PO QDAY 05/26/18 01/02/19 Unknown hydrOXYzine PAMOATE [Vistaril] 50 mg PO BID 05/26/18 01/02/19 Unknown ALPRAZolam [Xanax Xr] 20 mg PO DAILY 09/07/18 01/02/19 Unknown Nicotine [Nicotine Patch] 1 each TD DAILY 09/07/18 01/02/19 Unknown Previous Rx's Medication Instructions Recorded Last Taken Type Amoxicillin/Potassium Clav 1 each PO BID #20 tablet 01/24/19 Unknown Rx [Augmentin 875-125 Tablet] Allergies Allergy/AdvReac Type Severity Reaction Status Date / Time No Known Allergies Allergy Verified 10/22/18 13:27 ED Review of Systems ROS: Stated complaint: SUICIDAL Other details as noted in HPI Comment: All other systems reviewed and negative Constitutional: denies: chills, fever Eyes: denies: eye pain, eye discharge, vision change ENT: denies: ear pain, throat pain Respiratory: denies: cough, shortness of breath, wheezing Cardiovascular: denies: chest pain, palpitations Endocrine: no symptoms reported Gastrointestinal: denies: abdominal pain, nausea, diarrhea Genitourinary: denies: urgency, dysuria Musculoskeletal: denies: back pain, joint swelling, arthralgia Skin: denies: rash, lesions Neurological: denies: headache, weakness, paresthesias Psychiatric: suicidal thoughts. denies: anxiety, depression, auditory h allucinations, visual hallucinations, homicidal thoughts Hematological/Lymphatic: denies: easy bleeding, easy bruising ED Past Medical Hx - Past Medical History Previous Medical History?: Yes Hx Hypertension: Yes Hx CVA: No Hx Heart Attack/AMI: No Hx Congestive Heart Failure: No Hx Diabetes: No Hx Deep Vein Thrombosis: No Hx Pulmonary Embolism: No Hx GERD: No Hx Liver Disease: No Hx Renal Disease: No Hx Sickle Cell Disease: No Hx Arthritis: No Hx Headaches / Migraines: No Hx Seizures: No Hx Kidney Stones: No Hx Psychiatric Treatment: Yes (bipolar, schizophrenia-effective) Hx Asthma: No Hx COPD: No Hx Tuberculosis: No Hx Dementia: No Hx HIV: No - Surgical History Past Surgical History?: Yes Hx Coronary Stent: No Hx Open Heart Surgery: No Hx Pacemaker: No Hx Internal Defibrillator: No Hx Cholecystectomy: No Hx Appendectomy: No Hx Breast Surgery: No Additional Surgical History: to remove glass from foot as a child - Social History Smoking Status: Never Smoker Substance Use Type: None - Medications Home Medications: Home Medications Medication Instructions Recorded Confirmed Last Taken Type Paliperidone Palmitate [Invega 39 mg IM Q4W 01/22/17 01/02/19 08/03/17 History Sustenna] Lisinopril [Zestril] 5 mg PO QDAY 05/26/18 01/02/19 Unknown History hydrOXYzine PAMOATE [Vistaril] 50 mg PO BID 05/26/18 01/02/19 Unknown History ALPRAZolam [Xanax Xr] 20 mg PO DAILY 09/07/18 01/02/19 Unknown History Nicotine [Nicotine Patch] 1 each TD DAILY 09/07/18 01/02/19 Unknown History Amoxicillin/Potassium Clav 1 each PO BID #20 tablet 01/24/19 Unknown Rx [Augmentin 875-125 Tablet] ED Physical Exam - General Limitations: No Limitations General appearance: alert, in no apparent distress - Head Head exam: Present: atraumatic, normocephalic - Eye Eye exam: Present: normal appearance, PERRL, EOMI - ENT ENT exam: Present: mucous membranes moist - Neck Neck exam: Present: normal inspection - Respiratory Respiratory exam: Present: normal lung sounds bilaterally. Absent: respiratory distress - Cardiovascular Cardiovascular Exam: Present: regular rate, normal rhythm. Absent: systolic murmur, diastolic murmur, rubs, gallop - GI/Abdominal GI/Abdominal exam: Present: soft, normal bowel sounds. Absent: distended, tenderness - Rectal Rectal exam: Present: deferred - Extremities Exam Extremities exam: Present: normal inspection - Back Exam Back exam: Present: normal inspection - Neurological Exam Neurological exam: Present: alert, oriented X3, CN II-XII intact. Absent: motor sensory deficit - Psychiatric Psychiatric exam: Present: normal mood, flat affect, suicidal ideation. Absent: homicidal ideation - Skin Skin exam: Present: warm, dry, intact, normal color. Absent: rash ED Course Vital Signs 01/25/19 09:31 Temperature 98.4 F Pulse Rate 119 H Respiratory 16 Rate Blood Pressure 151/80 O2 Sat by Pulse 95 Oximetry ED Medical Decision Making - Lab Data Result diagrams: 01/25/19 09:42 01/25/19 09:42 Lab Results 01/25/19 01/25/19 01/25/19 Range/Units 09:42 09:42 09:42 WBC (4.5-11.0) K/mm3 RBC (3.65-5.03) M/mm3 Hgb (11.8-15.2) gm/dl Hct (35.5-45.6) % MCV (84-94) fl MCH (28-32) pg MCHC (32-34) % RDW (13.2-15.2) % Plt Count (140-440) K/mm3 Lymph % (Auto) (13.4-35.0) % Kerr % (Auto) (0.0-7.3) % Eos % (Auto) (0.0-4.3) % Baso % (Auto) (0.0-1.8) % Lymph # (1.2-5.4) K/mm3 Kerr # (0.0-0.8) K/mm3 Eos # (0.0-0.4) K/mm3 Baso # (0.0-0.1) K/mm3 Seg Neutrophils % (40.0-70.0) % Seg Neutrophils # (1.8-7.7) K/mm3 Sodium 140 (137-145) mmol/L Potassium 4.0 (3.6-5.0) mmol/L Chloride 102.6 (98-107) mmol/L Carbon Dioxide 24 (22-30) mmol/L Anion Gap 17 mmol/L BUN 9 (9-20) mg/dL Creatinine 0.7 L (0.8-1.5) mg/dL Estimated GFR > 60 ml/min BUN/Creatinine Ratio 13 % Glucose 132 H (75-100) mg/dL Calcium 9.6 (8.4-10.2) mg/dL Urine Color (Yellow) Urine Turbidity (Clear) Urine pH (5.0-7.0) Ur Specific [place] (1.003-1.030) Urine Protein (Negative) mg/dL Urine Glucose (UA) (Negative) mg/dL Urine Ketones (Negative) mg/dL Urine Blood (Negative) Urine Nitrite (Negative) Urine Bilirubin (Negative) Urine Urobilinogen (<2.0) mg/dL Ur Leukocyte Esterase (Negative) Urine WBC (Auto) (0.0-6.0) /HPF Urine RBC (Auto) (0.0-6.0) /HPF Urine Bacteria (Auto) (Negative) /HPF Urine Mucus /HPF Salicylates < 0.3 L (2.8-20.0) mg/dL Urine Opiates Screen Urine Methadone Screen Acetaminophen < 5.0 L (10.0-30.0) ug/mL Ur Barbiturates Screen Ur Phencyclidine Scrn Ur Amphetamines Screen U Benzodiazepines Scrn Urine Cocaine Screen U Marijuana (THC) Screen Drugs of Abuse Note Plasma/Serum Alcohol (0-0.07) % 01/25/19 01/25/19 01/25/19 Range/Units 09:42 09:42 12:45 WBC 10.4 (4.5-11.0) K/mm3 RBC 4.85 (3.65-5.03) M/mm3 Hgb 16.2 H (11.8-15.2) gm/dl Hct 45.2 (35.5-45.6) % MCV 93 (84-94) fl MCH 33 H (28-32) pg MCHC 36 H (32-34) % RDW 14.3 (13.2-15.2) % Plt Count 267 (140-440) K/mm3 Lymph % (Auto) 10.8 L (13.4-35.0) % Kerr % (Auto) 6.1 (0.0-7.3) % Eos % (Auto) 0.1 (0.0-4.3) % Baso % (Auto) 0.4 (0.0-1.8) % Lymph # 1.1 L (1.2-5.4) K/mm3 Kerr # 0.6 (0.0-0.8) K/mm3 Eos # 0.0 (0.0-0.4) K/mm3 Baso # 0.0 (0.0-0.1) K/mm3 Seg Neutrophils % 82.6 H (40.0-70.0) % Seg Neutrophils # 8.6 H (1.8-7.7) K/mm3 Sodium (137-145) mmol/L Potassium (3.6-5.0) mmol/L Chloride (98-107) mmol/L Carbon Dioxide (22-30) mmol/L Anion Gap mmol/L BUN (9-20) mg/dL Creatinine (0.8-1.5) mg/dL Estimated GFR ml/min BUN/Creatinine Ratio % Glucose (75-100) mg/dL Calcium (8.4-10.2) mg/dL Urine Color Yellow (Yellow) Urine Turbidity Turbid (Clear) Urine pH 5.0 (5.0-7.0) Ur Specific [place] 1.029 (1.003-1.030) Urine Protein <15 mg/dl (Negative) mg/dL Urine Glucose (UA) 150 (Negative) mg/dL Urine Ketones Tr (Negative) mg/dL Urine Blood Neg (Negative) Urine Nitrite Neg (Negative) Urine Bilirubin Neg (Negative) Urine Urobilinogen 2.0 (<2.0) mg/dL Ur Leukocyte Esterase Neg (Negative) Urine WBC (Auto) 47.0 H (0.0-6.0) /HPF Urine RBC (Auto) 7.0 (0.0-6.0) /HPF Urine Bacteria (Auto) 2+ (Negative) /HPF Urine Mucus 3+ /HPF Salicylates (2.8-20.0) mg/dL Urine Opiates Screen Urine Methadone Screen Acetaminophen (10.0-30.0) ug/mL Ur Barbiturates Screen Ur Phencyclidine Scrn Ur Amphetamines Screen U Benzodiazepines Scrn Urine Cocaine Screen U Marijuana (THC) Screen Drugs of Abuse Note Plasma/Serum Alcohol < 0.01 (0-0.07) % 01/25/19 Range/Units 12:45 WBC (4.5-11.0) K/mm3 RBC (3.65-5.03) M/mm3 Hgb (11.8-15.2) gm/dl Hct (35.5-45.6) % MCV (84-94) fl MCH (28-32) pg MCHC (32-34) % RDW (13.2-15.2) % Plt Count (140-440) K/mm3 Lymph % (Auto) (13.4-35.0) % Kerr % (Auto) (0.0-7.3) % Eos % (Auto) (0.0-4.3) % Baso % (Auto) (0.0-1.8) % Lymph # (1.2-5.4) K/mm3 Kerr # (0.0-0.8) K/mm3 Eos # (0.0-0.4) K/mm3 Baso # (0.0-0.1) K/mm3 Seg Neutrophils % (40.0-70.0) % Seg Neutrophils # (1.8-7.7) K/mm3 Sodium (137-145) mmol/L Potassium (3.6-5.0) mmol/L Chloride (98-107) mmol/L Carbon Dioxide (22-30) mmol/L Anion Gap mmol/L BUN (9-20) mg/dL Creatinine (0.8-1.5) mg/dL Estimated GFR ml/min BUN/Creatinine Ratio % Glucose (75-100) mg/dL Calcium (8.4-10.2) mg/dL Urine Color (Yellow) Urine Turbidity (Clear) Urine pH (5.0-7.0) Ur Specific [place] (1.003-1.030) Urine Protein (Negative) mg/dL Urine Glucose (UA) (Negative) mg/dL Urine Ketones (Negative) mg/dL Urine Blood (Negative) Urine Nitrite (Negative) Urine Bilirubin (Negative) Urine Urobilinogen (<2.0) mg/dL Ur Leukocyte Esterase (Negative) Urine WBC (Auto) (0.0-6.0) /HPF Urine RBC (Auto) (0.0-6.0) /HPF Urine Bacteria (Auto) (Negative) /HPF Urine Mucus /HPF Salicylates (2.8-20.0) mg/dL Urine Opiates Screen Presumptive negative Urine Methadone Screen Presumptive negative Acetaminophen (10.0-30.0) ug/mL Ur Barbiturates Screen Presumptive negative Ur Phencyclidine Scrn Presumptive negative Ur Amphetamines Screen Presumptive negative U Benzodiazepines Scrn Presumptive negative Urine Cocaine Screen Presumptive negative U Marijuana (THC) Screen Presumptive negative Drugs of Abuse Note Disclamer Plasma/Serum Alcohol (0-0.07) % - Medical Decision Making 1013 applied medically cleared Critical care attestation.: If time is entered above; I have spent that time in minutes in the direct care of this critically ill patient, excluding procedure time. ED Disposition Clinical Impression: Suicidal ideation, UTI (urinary tract infection) Disposition: DC/TX-65 PSY HOSP/PSY UNIT Is pt being admited?: No Does the pt Need Aspirin: No Condition: Stable Referrals: PRIMARY CARE, [Referring] - 3-5 Days
[2019-01-25 13:07] LABS: Bacteria,Urine 2+ /HPF (Negative); Bilirubin,Urine NEG (Negative); Blood,Urine NEG (Negative); Color,Urine Yellow (Yellow); Mucus,Urine 3+ /HPF; Protein,Urine <15 mg/dL mg/dL (Negative)
[2019-01-25 13:14] LABS: Amphetamine Screen,Urine PRESUMPTIVE NEGATIVE; Benzodiazepines Screen,Urine PRESUMPTIVE NEGATIVE; Cannabinoid Screen,Urine PRESUMPTIVE NEGATIVE; Cocaine Screen,Urine PRESUMPTIVE NEGATIVE; Methadone Screen,Urine PRESUMPTIVE NEGATIVE; Opiate Screen,Urine PRESUMPTIVE NEGATIVE
[2019-01-25] MEDS ORDERED: NACL 0.9% 1000 ML 1,000 ML ONE (13:41)
[2019-01-25] MEDS ORDERED: LEVAQUIN PO ONE (13:54)
[2019-01-25] MEDS ORDERED: NACL 0.9% 1000 ML 1,000 ML IV ONE (14:12)
--- NOTE | 2019-01-26 10:21 | Consultation ---
History of Present Illness - Reason for Consult Consult date: 01/26/19 Reason for consult: Mental Health Evaluation Requesting physician: RIK HALL - Chief Complaint Chief complaint: "I'm not sure if I'm suicidal" - History of Present Psychiatric Illness 33 y.o. male who presented to the ER for SI's. This patient is known to me. Today the patient was somewhat hyper verbal during the assessment. He stated that he was feeling "sad" the past several days. He stated that he have not slept in 3 days. He stated that he was "to busy" to sleep. He stated that he haven't had his PO psy medication since being discharged from [facility] (mental health facility) recently. He stated that he called EMS yesterday because he was "scared" of himself because he wanted to end his life. He stated that he feel "a little better" today. He denies SI/HI's and VH's. He stated that the voices are "calming down" now. He denies a poor appetite, recreational drug use, and alcohol consumption (etoh). The patient receive the monthly Invega injection. Medications and Allergies Allergies Allergy/AdvReac Type Severity Reaction Status Date / Time No Known Allergies Allergy Verified 10/22/18 13:27 Home Medications Medication Instructions Recorded Confirmed Last Taken Type Paliperidone Palmitate [Invega 39 mg IM Q4W 01/22/17 01/02/19 08/03/17 History Sustenna] Lisinopril [Zestril] 5 mg PO QDAY 05/26/18 01/02/19 Unknown History hydrOXYzine PAMOATE [Vistaril] 50 mg PO BID 05/26/18 01/02/19 Unknown History ALPRAZolam [Xanax Xr] 20 mg PO DAILY 09/07/18 01/02/19 Unknown History Nicotine [Nicotine Patch] 1 each TD DAILY 09/07/18 01/02/19 Unknown History Amoxicillin/Potassium Clav 1 each PO BID #20 tablet 01/24/19 Unknown Rx [Augmentin 875-125 Tablet] Past psychiatric history - Past Medical History Past Medical History: No medical history Past Surgical History: No surgical history - past Psychiatric treatment and history psychiatric treatment history: Several inpatient psy services. Denies a fam psy hx. - Social History Social history: other (Reside at a [facility]) Mental Status Exam - Vital signs Last Vital Signs Temp 98.5 F 01/26/19 08:03 Pulse 83 01/26/19 08:03 Resp 18 01/26/19 08:03 BP 145/88 01/26/19 08:03 Pulse Ox 95 01/26/19 08:03 - Exam Narrative exam: MSE: Appearance: in hospital attire Behavior: regular eye contact Speech: somewhat hyper verbal Mood: labile Affect: congruent to mood Thought Process: circumstantial Thought Content: denies SI/HI's and VH's Motor Activity: lying in bed Cognition: A/O x3 Insight:variable Judgment: poor Results Result Diagrams: 01/25/19 09:42 01/25/19 09:42 Abnormal lab results 01/25/19 01/25/19 01/25/19 Range/Units 09:42 09:42 09:42 Hgb (11.8-15.2) gm/dl MCH (28-32) pg MCHC (32-34) % Lymph % (Auto) (13.4-35.0) % Lymph # (1.2-5.4) K/mm3 Creatinine 0.7 L (0.8-1.5) mg/dL Glucose 132 H (75-100) mg/dL Urine WBC (Auto) (0.0-6.0) /HPF Salicylates < 0.3 L (2.8-20.0) mg/dL Acetaminophen < 5.0 L (10.0-30.0) ug/mL 01/25/19 01/25/19 Range/Units 09:42 12:45 Hgb 16.2 H (11.8-15.2) gm/dl MCH 33 H (28-32) pg MCHC 36 H (32-34) % Lymph % (Auto) 10.8 L (13.4-35.0) % Lymph # 1.1 L (1.2-5.4) K/mm3 Creatinine (0.8-1.5) mg/dL Glucose (75-100) mg/dL Urine WBC (Auto) 47.0 H (0.0-6.0) /HPF Salicylates (2.8-20.0) mg/dL Acetaminophen (10.0-30.0) ug/mL All other labs normal. Assessment and Plan Assessment and plan: Impression: Schizoaffective DO. The patient is manic. Today the patient was hyper verbal during the assessment. UDS is negative. DDx: Bipolar DO, Schizophrenia Recommendation/Plan: Continue 1013 and start [place] 300 mg PO BID for mood and Melatonin 5 mg Po HS for sleep. The patient receive the monthly Invega injection. Dispo: The patient was referred to inpatient psy services. Staffed with Dr Jordon Joseph.
[2019-01-26] MEDS ORDERED: ESKALITH PO SCH (11:00)
[2019-01-26 14:35] VITALS: BP 153/90
[2019-01-26] MEDS ORDERED: MELATONIN PO SCH (22:00)
== END 2019-01-26 15:50 ==
LOC: ED 09:20 → EEVIPCON 09:20 → ED 01-26 15:50
DX: F31.9 Bipolar disorder, unspecified (principal); F20.9 Schizophrenia, unspecified; N39.0 Urinary tract infection, site not specified; I10 Essential (primary) hypertension; Z98.890 Other specified postprocedural states; Z79.899 Other long term (current) drug therapy
CPT/HCPCS: 36415; 80048; 80307; 81001; 85025; 87086; 99285; J7030; 80320; 96360; G0480

== ENCOUNTER 2019-02-18 18:42 | Emergency (ER) | payer MEDICAID ==
[2019-02-18 18:54] VITALS: BP 146/92
--- NOTE | 2019-02-18 18:58 | Event Note ---
ED Screening Note Date of service: 02/18/19 Time: 18:56 ED Screening Note: This is a 33 y.o. M. that presents to the ER with SI thoughts. Patient states his plan is to use a knife or jump in front of a train. This initial assessment/diagnostic orders/clinical plan/treatment(s) is/are subject to change based on patients health status, clinical progression and re- assessment by fellow clinical providers in the ED. Further treatment and workup at subsequent clinical providers discretion. Patient/guardian urged not to elope from the ED as their condition may be serious if not clinically assessed and managed. Initial orders include: Labs Main ED for further evaluation
[2019-02-18 19:34] LABS: Basophils # (Auto) 0.1 K/mm3 (0.0-0.1); Basophils % (Auto) 0.8 % (0.0-1.8); Eosinophils # (Auto) 0.2 K/mm3 (0.0-0.4); Eosinophils % (Auto) 1.3 % (0.0-4.3); Hematocrit 43.9 % (35.5-45.6); Hemoglobin 15.3 gm/dl (11.8-15.2); Lymphocytes % (Auto) 17.1 % (13.4-35.0); Mean Corpuscular HGB Conc 35 % (32-34); Mean Corpuscular Volume 93 fl (84-94); Monocytes # (Auto) 0.9 K/mm3 (0.0-0.8); Monocytes % (Auto) 7.4 % (0.0-7.3); Platelet Count 250 K/mm3 (140-440); Red Blood Count 4.72 M/mm3 (3.65-5.03); Red Cell Distribution Width 14.7 % (13.2-15.2)
[2019-02-18 19:55] LABS: BUN/Creatinine Ratio 13; Blood Urea Nitrogen 10 mg/dL (9-20); Calcium 9.7 mg/dL (8.4-10.2); Hemolysis Index 7
[2019-02-18] MEDS ORDERED: HABITROL TD ONE (20:27)
--- NOTE | 2019-02-18 20:27 | Emergency Department Report ---
ED Psych HPI - General Chief Complaint: Psych Stated Complaint: SI Time Seen by Provider: 02/18/19 18:56 Source: patient Mode of arrival: Ambulatory - History of Present Illness Initial Comments: 33 yo M with hx of schizoaffective disorder presents to ED reporting negative thoughts. Patient states he is having "negative thoughts but not negative emotions, zina like a scary movie, " but denies SI, HI, hallucinations. Requesting mental health evaluation. -: unknown Quality: constant Improves With: none Worsens With: none Associated Symptoms: denies other symptoms Treatments Prior to Arrival: none - Related Data Home Medications Medication Instructions Recorded Confirmed Last Taken Paliperidone Palmitate [Invega 39 mg IM Q4W 01/22/17 02/18/19 08/03/17 Sustenna] Lisinopril [Zestril] 5 mg PO QDAY 05/26/18 02/18/19 Unknown hydrOXYzine PAMOATE [Vistaril] 50 mg PO BID 05/26/18 02/18/19 Unknown ALPRAZolam [Xanax Xr] 20 mg PO DAILY 09/07/18 02/18/19 Unknown Nicotine [Nicotine Patch] 1 each TD DAILY 09/07/18 02/18/19 Unknown Previous Rx's Medication Instructions Recorded Last Taken Type Amoxicillin/Potassium Clav 1 each PO BID #20 tablet 01/24/19 Unknown Rx [Augmentin 875-125 Tablet] Allergies Allergy/AdvReac Type Severity Reaction Status Date / Time No Known Allergies Allergy Verified 02/18/19 18:57 ED Review of Systems ROS: Stated complaint: SI Other details as noted in HPI Comment: All other systems reviewed and negative Psychiatric: denies: depression, auditory hallucinations, visual hallucinations, homicidal thoughts, suicidal thoughts ED Past Medical Hx - Past Medical History Previous Medical History?: Yes Hx Hypertension: Yes Hx CVA: No Hx Heart Attack/AMI: No Hx Congestive Heart Failure: No Hx Diabetes: No Hx Deep Vein Thrombosis: No Hx Pulmonary Embolism: No Hx GERD: No Hx Liver Disease: No Hx Renal Disease: No Hx Sickle Cell Disease: No Hx Arthritis: No Hx Headaches / Migraines: No Hx Seizures: No Hx Kidney Stones: No Hx Psychiatric Treatment: Yes (bipolar, schizophrenia-effective) Hx Asthma: No Hx COPD: No Hx Tuberculosis: No Hx Dementia: No Hx HIV: No - Surgical History Past Surgical History?: Yes Hx Coronary Stent: No Hx Open Heart Surgery: No Hx Pacemaker: No Hx Internal Defibrillator: No Hx Cholecystectomy: No Hx Appendectomy: No Hx Breast Surgery: No Additional Surgical History: to remove glass from foot as a child - Social History Smoking Status: Current Every Day Smoker Substance Use Type: Alcohol, Cocaine, Marijuana, Other - Medications Home Medications: Home Medications Medication Instructions Recorded Confirmed Last Taken Type Paliperidone Palmitate [Invega 39 mg IM Q4W 01/22/17 02/18/19 08/03/17 History Sustenna] Lisinopril [Zestril] 5 mg PO QDAY 05/26/18 02/18/19 Unknown History hydrOXYzine PAMOATE [Vistaril] 50 mg PO BID 05/26/18 02/18/19 Unknown History ALPRAZolam [Xanax Xr] 20 mg PO DAILY 09/07/18 02/18/19 Unknown History Nicotine [Nicotine Patch] 1 each TD DAILY 09/07/18 02/18/19 Unknown History Amoxicillin/Potassium Clav 1 each PO BID #20 tablet 01/24/19 02/18/19 Unknown Rx [Augmentin 875-125 Tablet] ED Physical Exam - General Limitations: No Limitations General appearance: alert, in no apparent distress - Head Head exam: Present: atraumatic, normocephalic - Eye Eye exam: Present: normal appearance, PERRL, EOMI - ENT ENT exam: Present: mucous membranes moist - Neck Neck exam: Present: normal inspection - Respiratory Respiratory exam: Present: normal lung sounds bilaterally. Absent: respiratory distress - Cardiovascular Cardiovascular Exam: Present: normal rhythm, tachycardia - GI/Abdominal GI/Abdominal exam: Absent: distended - Extremities Exam Extremities exam: Present: normal inspection - Neurological Exam Neurological exam: Present: alert, oriented X3 - Psychiatric Psychiatric exam: Present: anxious - Skin Skin exam: Present: warm, dry, intact, normal color ED Course Vital Signs 02/18/19 18:49 Temperature 98.6 F Pulse Rate 126 H Respiratory 20 Rate Blood Pressure 146/92 O2 Sat by Pulse 96 Oximetry ED Medical Decision Making - Lab Data Result diagrams: 02/18/19 19:26 02/18/19 19:26 - Medical Decision Making Pt seen by mental health awning hanger helper. Stated he just needed a respite and a little time away from home. He feels better now and is ready to go. Denies SI, HI. Will d/c with outpt f/u. Critical care attestation.: If time is entered above; I have spent that time in minutes in the direct care of this critically ill patient, excluding procedure time. ED Disposition Clinical Impression: Schizoaffective disorder Disposition: DC-01 TO HOME OR SELFCARE Is pt being admited?: No Condition: Stable Instructions: Schizoaffective Disorder (ED) Referrals: PRIMARY CARE, [Primary Care Provider] - 3-5 Days [facility] [Outside] - 3-5 Days Time of Disposition: 03:37
[2019-02-18 23:17] LABS: Amphetamine Screen,Urine PRESUMPTIVE NEGATIVE; Benzodiazepines Screen,Urine PRESUMPTIVE NEGATIVE; Cannabinoid Screen,Urine PRESUMPTIVE NEGATIVE; Cocaine Screen,Urine PRESUMPTIVE NEGATIVE; Methadone Screen,Urine PRESUMPTIVE NEGATIVE; Opiate Screen,Urine PRESUMPTIVE NEGATIVE
[2019-02-18 23:18] LABS: Bilirubin,Urine NEG (Negative); Blood,Urine NEG (Negative); Color,Urine Yellow (Yellow); Mucus,Urine 2+ /HPF; Protein,Urine <15 mg/dL mg/dL (Negative)
== END 2019-02-18 21:00 | disposition home or self-care (01) ==
LOC: ED 18:42 → EEVIPCON 18:42 → ED 21:00
DX: F25.9 Schizoaffective disorder, unspecified (principal); F17.200 Nicotine dependence, unspecified, uncomplicated; F12.10 Cannabis abuse, uncomplicated; Z79.899 Other long term (current) drug therapy; I10 Essential (primary) hypertension; F31.9 Bipolar disorder, unspecified
CPT/HCPCS: 36415; 80048; 80307; 80320; 81001; 85025; G0480

== ENCOUNTER 2019-04-08 17:22 | Emergency (ER) | payer MEDICAID ==
[2019-04-08 18:28] LABS: Basophils # (Auto) 0.1 K/mm3 (0.0-0.1); Basophils % (Auto) 0.7 % (0.0-1.8); Eosinophils # (Auto) 0.1 K/mm3 (0.0-0.4); Eosinophils % (Auto) 1.2 % (0.0-4.3); Hematocrit 44.6 % (35.5-45.6); Hemoglobin 15.7 gm/dl (11.8-15.2); Lymphocytes # (Auto) 1.6 K/mm3 (1.2-5.4); Mean Corpuscular HGB Conc 35 % (32-34); Mean Corpuscular Volume 96 fl (84-94); Monocytes # (Auto) 0.7 K/mm3 (0.0-0.8); Monocytes % (Auto) 6.2 % (0.0-7.3); Platelet Count 238 K/mm3 (140-440); Red Blood Count 4.64 M/mm3 (3.65-5.03); Red Cell Distribution Width 14.3 % (13.2-15.2)
[2019-04-08] MEDS ORDERED: hydrOXYzine PAMOATE 25 MG CAP PO ONE (18:38)
[2019-04-08 18:47] LABS: BUN/Creatinine Ratio 10; Bilirubin,Urine NEG (Negative); Blood Urea Nitrogen 8 mg/dL (9-20); Blood,Urine NEG (Negative); Calcium 9.2 mg/dL (8.4-10.2); Color,Urine Yellow (Yellow); Hemolysis Index 8; Mucus,Urine FEW /HPF; Protein,Urine <15 mg/dL mg/dL (Negative); Urobilinogen,Urine < 2.0 mg/dL (<2.0)
[2019-04-08 18:54] LABS: Amphetamine Screen,Urine PRESUMPTIVE NEGATIVE; Benzodiazepines Screen,Urine PRESUMPTIVE NEGATIVE; Cocaine Screen,Urine PRESUMPTIVE NEGATIVE; Methadone Screen,Urine PRESUMPTIVE NEGATIVE; Opiate Screen,Urine PRESUMPTIVE NEGATIVE
[2019-04-08 19:07] LABS: Alanine Aminotransferase 36 units/L (7-56); Albumin 4.7 g/dL (3.9-5)
[2019-04-08 19:08] LABS: Cannabinoid Screen,Urine PRESUMPTIVE POSITIVE
--- NOTE | 2019-04-08 19:14 | Emergency Department Report ---
ED General Adult HPI - General Chief complaint: Anxiety Stated complaint: ANXIETY Source: patient, EMS Mode of arrival: Stretcher Limitations: No Limitations - History of Present Illness Initial comments: Patient is a 33-year-old male with a history of chronic schizophrenia, hypertension and bipolar disorder who presents to the ED via EMS with chest discomfort, shaking, anxiety and "feeling weird" after smoking marijuana about 2 hours ago. Patient states that each time he smokes marijuana he gets the same feeling of worsening anxiety and "the voices in my head get louder and louder". Patient states that the voices are telling him to walk around and move around each time he smokes the same marijuana. Patient denies shortness of breath, dizziness, headache, change in vision, syncope, or limitations, chest pain, abdominal pain, nausea and vomiting, suicidal or homicidal ideations. MD Complaint: Anxiety after smoking marijuana -: Sudden, hour(s) (2) Location: chest Radiation: non-radiation Quality: dull Consistency: constant Improves with: none Worsens with: none Associated Symptoms: denies other symptoms, chest pain (discomfort). denies: confusion, cough, diaphoresis, malaise, nausea/vomiting, shortness of breath, syncope, weakness Treatments Prior to Arrival: none - Related Data Home Medications Medication Instructions Recorded Confirmed Last Taken Lisinopril [Zestril] 5 mg PO QDAY 05/26/18 02/28/19 02/27/19 hydrOXYzine PAMOATE [Vistaril] 50 mg PO BID 05/26/18 02/28/19 02/27/19 ALPRAZolam [Xanax Xr] 20 mg PO DAILY 09/07/18 02/28/19 02/27/19 Nicotine [Nicotine Patch] 1 each TD DAILY 09/07/18 02/28/19 02/27/19 Paliperidone Palmitate [Invega 156 mg IM QMONTH 02/28/19 02/28/19 02/12/19 Sustenna] Allergies Allergy/AdvReac Type Severity Reaction Status Date / Time No Known Allergies Allergy Verified 02/18/19 18:57 ED Review of Systems ROS: Stated complaint: ANXIETY Other details as noted in HPI Constitutional: denies: chills, fever Eyes: denies: eye pain, eye discharge, vision change ENT: denies: ear pain, throat pain Respiratory: denies: cough, shortness of breath, wheezing Cardiovascular: chest pain (discomfort). denies: palpitations Endocrine: no symptoms reported. denies: excessive sweating, flushing, intolerance to heat Gastrointestinal: denies: abdominal pain, nausea, diarrhea Genitourinary: denies: urgency, dysuria Musculoskeletal: denies: back pain, joint swelling, arthralgia Skin: denies: rash, lesions Neurological: denies: headache, weakness, paresthesias Psychiatric: anxiety, auditory hallucinations. denies: depression, visual hallucinations, homicidal thoughts, suicidal thoughts Hematological/Lymphatic: denies: easy bleeding, easy bruising ED Past Medical Hx - Past Medical History Hx Hypertension: Yes Hx CVA: No Hx Heart Attack/AMI: No Hx Congestive Heart Failure: No Hx Diabetes: No Hx Deep Vein Thrombosis: No Hx Pulmonary Embolism: No Hx GERD: No Hx Liver Disease: No Hx Renal Disease: No Hx Sickle Cell Disease: No Hx Arthritis: No Hx Headaches / Migraines: No Hx Seizures: No Hx Kidney Stones: No Hx Psychiatric Treatment: Yes (bipolar, schizophrenia-effective) Hx Asthma: No Hx COPD: No Hx Tuberculosis: No Hx Dementia: No Hx HIV: No - Surgical History Hx Coronary Stent: No Hx Open Heart Surgery: No Hx Pacemaker: No Hx Internal Defibrillator: No Hx Cholecystectomy: No Hx Appendectomy: No Hx Breast Surgery: No Additional Surgical History: to remove glass from foot as a child - Social History Smoking Status: Current Every Day Smoker Substance Use Type: Alcohol, Marijuana - Medications Home Medications: Home Medications Medication Instructions Recorded Confirmed Last Taken Type Lisinopril [Zestril] 5 mg PO QDAY 05/26/18 02/28/19 02/27/19 History hydrOXYzine PAMOATE [Vistaril] 50 mg PO BID 05/26/18 02/28/19 02/27/19 History ALPRAZolam [Xanax Xr] 20 mg PO DAILY 09/07/18 02/28/19 02/27/19 History Nicotine [Nicotine Patch] 1 each TD DAILY 09/07/18 02/28/19 02/27/19 History Paliperidone Palmitate [Invega 156 mg IM QMONTH 02/28/19 02/28/19 02/12/19 History Sustenna] ED Physical Exam - General Limitations: No Limitations General appearance: alert, in no apparent distress - Head Head exam: Present: atraumatic, normocephalic, normal inspection - Eye Eye exam: Present: normal appearance, PERRL, EOMI Pupils: Present: normal accommodation - ENT ENT exam: Present: normal exam, normal orophraynx, mucous membranes moist, TM's normal bilaterally, normal external ear exam - Neck Neck exam: Present: normal inspection, full ROM. Absent: tenderness - Respiratory Respiratory exam: Present: normal lung sounds bilaterally. Absent: respiratory distress, wheezes, rales, rhonchi, chest wall tenderness, accessory muscle use, prolonged expiratory - Cardiovascular Cardiovascular Exam: Present: regular rate, normal rhythm, normal heart sounds. Absent: systolic murmur, diastolic murmur, rubs, gallop - GI/Abdominal GI/Abdominal exam: Present: soft, normal bowel sounds. Absent: tenderness, guarding, rebound - Extremities Exam Extremities exam: Present: normal inspection, full ROM, normal capillary refill - Back Exam Back exam: Present: normal inspection, full ROM - Neurological Exam Neurological exam: Present: alert, oriented X3, CN II-XII intact, normal gait, reflexes normal - Psychiatric Psychiatric exam: Present: normal affect, anxious. Absent: homicidal ideation, suicidal ideation - Skin Skin exam: Present: warm, dry, intact, normal color. Absent: rash ED Course Vital Signs 04/08/19 04/08/19 17:45 19:44 Temperature 98.3 F 97.8 F Pulse Rate 116 H 99 H Respiratory 18 18 Rate Blood Pressure 153/104 143/99 [Left] O2 Sat by Pulse 94 96 Oximetry - Reevaluation(s) Reevaluation #1: 04/08/19 19:20 This is a 33-year-old male with a history of chronic schizophrenia and bipolar disorder who presented to the ED with worsening anxiety characterized by chest discomfort and hallucinations after smoking marijuana about 2 hours ago. In the ED, patient is alert and oriented 3 and is not in distress, not suicidal or homicidal, but tachycardic and hypertensive in triage. Lab test results were reviewed and show acute leukocytosis of 12,000, CK level 411, and urine drug screen was active for only marijuana that the patient had smoked prior to arrival in the ED. Patient was treated for anxiety with Vistaril 50 mg by mouth 1. Patient is not suicidal or homicidal in the ED, and is currently resting comfortably in the room in no distress. Repeat vital signs show that the t achycardia is resolved. ED Medical Decision Making - Lab Data Result diagrams: 04/08/19 18:15 04/08/19 18:15 Critical care attestation.: If time is entered above; I have spent that time in minutes in the direct care of this critically ill patient, excluding procedure time. ED Disposition Clinical Impression: Anxiety as acute reaction to exceptional stress, Marijuana abuse, continuous Disposition: DC-01 TO HOME OR SELFCARE Is pt being admited?: No Does the pt Need Aspirin: No Condition: Stable Instructions: Generalized Anxiety Disorder (ED), Cannabis Abuse (ED) Additional Instructions: Take your regular medications, follow up with your Primary Care Physician or Psychiatrist in 5-7 days for reevaluation. Consider quiting use of Marijuana to control your anxiety. Return to the ED immediately if symptoms get worse. Referrals: [facility] [Outside] - 3-5 Days Time of Disposition: 19:26 Print Language: TURKISH
[2019-04-08 19:18] LABS: Bilirubin,Direct < 0.2 mg/dL (0-0.2)
[2019-04-08 19:45] VITALS: BP 143/99
== END 2019-04-08 22:21 | disposition home or self-care (01) ==
LOC: ED 17:22
DX: F41.9 Anxiety disorder, unspecified (principal); F12.10 Cannabis abuse, uncomplicated; I10 Essential (primary) hypertension; F25.0 Schizoaffective disorder, bipolar type; F17.200 Nicotine dependence, unspecified, uncomplicated; Z79.899 Other long term (current) drug therapy
CPT/HCPCS: 36415; 80048; 80076; 80307; 80320; 81001; 82550; 83735; 85025; G0480; Q0177

== ENCOUNTER 2019-08-27 10:18 | Emergency (ER) | payer MEDICAID ==
--- NOTE | 2019-08-27 15:19 | Emergency Department Report ---
ED Psych HPI - General Chief Complaint: Psych Stated Complaint: DEPRESSION Time Seen by Provider: 08/27/19 14:54 Source: patient Mode of arrival: Ambulatory - History of Present Illness Initial Comments: 33-year-old male with history of schizoaffective disorder presents to ED with depression. Patient states he has been feeling emotional. He denies SI or HI. He reports auditory hallucinations, but states he experiences this at baseline. Patient reports he is compliant with his psychiatric medication. MD Complaint: feels depressed -: days(s) (3) Associated Psychiatric Symptoms: auditory hallucinations History of same: Yes Improves With: none Worsens With: none Associated Symptoms: denies other symptoms Treatments Prior to Arrival: none - Related Data Home Medications Medication Instructions Recorded Confirmed Last Taken hydrOXYzine PAMOATE [Vistaril] 50 mg PO BID 05/26/18 02/28/19 02/27/19 lisinopriL [Zestril] 5 mg PO QDAY 05/26/18 02/28/19 02/27/19 ALPRAZolam [Xanax Xr] 20 mg PO DAILY 09/07/18 02/28/19 02/27/19 Nicotine [Nicotine Patch] 1 each TD DAILY 09/07/18 02/28/19 02/27/19 Paliperidone Palmitate [Invega 156 mg IM QMONTH 02/28/19 02/28/19 02/12/19 Sustenna] Allergies Allergy/AdvReac Type Severity Reaction Status Date / Time No Known Allergies Allergy Verified 02/18/19 18:57 ED Review of Systems ROS: Stated complaint: DEPRESSION Other details as noted in HPI Comment: All other systems reviewed and negative Psychiatric: depression, auditory hallucinations. denies: visual hallucinations, homicidal thoughts, suicidal thoughts ED Past Medical Hx - Past Medical History Previous Medical History?: Yes Hx Hypertension: Yes Hx CVA: No Hx Heart Attack/AMI: No Hx Congestive Heart Failure: No Hx Diabetes: No Hx Deep Vein Thrombosis: No Hx Pulmonary Embolism: No Hx GERD: No Hx Liver Disease: No Hx Renal Disease: No Hx Sickle Cell Disease: No Hx Arthritis: No Hx Headaches / Migraines: No Hx Seizures: No Hx Kidney Stones: No Hx Psychiatric Treatment: Yes (bipolar, schizophrenia-effective) Hx Asthma: No Hx COPD: No Hx Tuberculosis: No Hx Dementia: No Hx HIV: No - Surgical History Past Surgical History?: No Hx Coronary Stent: No Hx Open Heart Surgery: No Hx Pacemaker: No Hx Internal Defibrillator: No Hx Cholecystectomy: No Hx Appendectomy: No Hx Breast Surgery: No Additional Surgical History: to remove glass from foot as a child - Social History Smoking Status: Current Every Day Smoker Substance Use Type: Alcohol, Marijuana, Other - Medications Home Medications: Home Medications Medication Instructions Recorded Confirmed Last Taken Type hydrOXYzine PAMOATE [Vistaril] 50 mg PO BID 05/26/18 02/28/19 02/27/19 History lisinopriL [Zestril] 5 mg PO QDAY 05/26/18 02/28/19 02/27/19 History ALPRAZolam [Xanax Xr] 20 mg PO DAILY 09/07/18 02/28/19 02/27/19 History Nicotine [Nicotine Patch] 1 each TD DAILY 09/07/18 02/28/19 02/27/19 History Paliperidone Palmitate [Invega 156 mg IM QMONTH 02/28/19 02/28/19 02/12/19 History Sustenna] ED Physical Exam - General Limitations: No Limitations General appearance: alert, in no apparent distress - Head Head exam: Present: atraumatic, normocephalic - Eye Eye exam: Present: normal appearance - ENT ENT exam: Present: mucous membranes moist - Neck Neck exam: Present: normal inspection - Respiratory Respiratory exam: Present: normal lung sounds bilaterally. Absent: respiratory distress - Cardiovascular Cardiovascular Exam: Present: regular rate, normal rhythm - GI/Abdominal GI/Abdominal exam: Absent: distended - Extremities Exam Extremities exam: Present: normal inspection - Neurological Exam Neurological exam: Present: alert, oriented X3 - Psychiatric Psychiatric exam: Present: normal affect, normal mood - Skin Skin exam: Present: warm, dry, intact, normal color ED Course Vital Signs 08/27/19 08/27/19 10:21 16:23 Temperature 98.3 F 98.5 F Pulse Rate 104 H 104 H Respiratory 20 18 Rate Blood Pressure 152/93 Blood Pressure 143/73 [Left] O2 Sat by Pulse 97 96 Oximetry ED Medical Decision Making - Medical Decision Making - no SI or HI - seen by psych puncher and only requested meds - does not meet inpatient criteria - outpt f/u advised - will d/c home - Differential Diagnosis schizoaffective Critical care attestation.: If time is entered above; I have spent that time in minutes in the direct care of this critically ill patient, excluding procedure time. ED Disposition Clinical Impression: Schizoaffective disorder Disposition: DC-01 TO HOME OR SELFCARE Is pt being admited?: No Condition: Stable Instructions: Depression (ED) Referrals: PRIMARY CARE, [Primary Care Provider] - 3-5 Days [facility] [Outside] - 3-5 Days Time of Disposition: 15:58
[2019-08-27 16:24] VITALS: BP 143/73
== END 2019-08-27 16:23 | disposition home or self-care (01) ==
LOC: ED 10:18
DX: F25.9 Schizoaffective disorder, unspecified (principal); F31.9 Bipolar disorder, unspecified; I10 Essential (primary) hypertension
CPT/HCPCS: 99283

== ENCOUNTER 2020-03-16 10:06 | Emergency (ER) | payer MEDICAID ==
--- NOTE | 2020-03-16 10:34 | Emergency Department Report ---
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 Patient states he was around someone that was making a lot of noise and began to irritate him. Patient states there was never an event but he decided to come to the hospital for evaluation secondary to him feeling irritated. Patient denies suicidal homicidal ideation. Patient denies visual hallucinations. Patient admits to auditory hallucinations but states this is his baseline. The patient states the voices are just commenting on what is going on and do not give commands. When asked how he is feeling now the patient states he feels a little bit better but states he feels emotional and taps his chest. Patient denies ever having chest pain pressure tightness or discomfort but just states he feels emotional. ED Past Medical Hx - Past Medical History Hx Hypertension: Yes Hx Psychiatric Treatment: Yes (bipolar, schizophrenia-effective) - Surgical History Additional Surgical History: to remove glass from foot as a child - Family History Family history: no significant - Social History Smoking Status: Current Every Day Smoker (1 pack/day) Substance Use Type: Alcohol (Occasional), Marijuana, Other (Sirisha) - Medications Home Medications: Home Medications Medication Instructions Recorded Confirmed Last Taken Type hydrOXYzine PAMOATE [Vistaril] 50 mg PO BID 05/26/18 02/28/19 02/27/19 History lisinopriL [Zestril] 5 mg PO QDAY 05/26/18 02/28/19 02/27/19 History ALPRAZolam [Xanax Xr] 20 mg PO DAILY 09/07/18 02/28/19 02/27/19 History Nicotine [Nicotine Patch] 1 each TD DAILY 09/07/18 02/28/19 02/27/19 History Paliperidone Palmitate [Invega 156 mg IM QMONTH 02/28/19 02/28/19 02/12/19 History Sustenna] ED Review of Systems ROS: Stated complaint: IRRITATION Other details as noted in HPI Constitutional: no symptoms reported Respiratory: no symptoms reported Cardiovascular: denies: chest pain Endocrine: no symptoms reported Psychiatric: auditory hallucinations. denies: visual hallucinations, homicidal thoughts, suicidal thoughts Physical Exam - Physical Exam Physical Exam: GENERAL: The patient is well-developed well-nourished male lying on stretcher not appearing to be in acute distress. [] HEENT: Normocephalic. Atraumatic. Extraocular motions are intact. Patient has moist mucous membranes. NECK: Supple. Trachea midline CHEST/LUNGS: Clear to auscultation. There is no respiratory distress noted. HEART/CARDIOVASCULAR: Regular. There is no tachycardia. There is no gallop rub or murmur. ABDOMEN: Abdomen is soft, nontender. Patient has normal bowel sounds. There is no abdominal distention. SKIN: There is no rash. There is no diaphoresis. NEURO: The patient is awake, alert, and oriented. The patient is cooperative. The patient has normal speech MUSCULOSKELETAL: There is no evidence of acute injury. ED Medical Decision Making - Lab Data Result diagrams: 03/16/20 10:38 03/16/20 10:38 Laboratory Tests 03/16/20 03/16/20 03/16/20 10:38 10:38 10:38 WBC 7.9 RBC 4.31 Hgb 14.2 Hct 41.4 MCV 96 H MCH 33 H MCHC 34 RDW 13.9 Plt Count 236 Lymph % (Auto) 20.5 [place] % (Auto) 7.4 H Eos % (Auto) 1.2 Baso % (Auto) 0.6 Lymph # (Auto) 1.6 [place] # (Auto) 0.6 Eos # (Auto) 0.1 Baso # (Auto) 0.0 Seg Neutrophils % 70.3 H Seg Neutrophils # 5.6 Sodium 138 Potassium 4.4 Chloride 102.3 Carbon Dioxide 25 Anion Gap 15 BUN 10 Creatinine 0.9 Estimated GFR > 60 BUN/Creatinine Ratio 11 Glucose 91 Calcium 9.4 Total Creatine Kinase 254 H CK-MB (CK-2) 1.7 CK-MB (CK-2) Rel Index 0.6 Troponin T < 0.010 Urine Color Urine Turbidity Urine pH Ur Specific [place] Urine Protein Urine Glucose (UA) Urine Ketones Urine Blood Urine Nitrite Urine Bilirubin Urine Urobilinogen Ur Leukocyte Esterase Urine WBC (Auto) Urine RBC (Auto) Urine Mucus Salicylates Urine Opiates Screen Urine Methadone Screen Acetaminophen Ur Barbiturates Screen Ur Phencyclidine Scrn Ur Amphetamines Screen U Benzodiazepines Scrn Urine Cocaine Screen U Marijuana (THC) Screen Plasma/Serum Alcohol 03/16/20 03/16/20 03/16/20 10:38 10:38 10:38 WBC RBC Hgb Hct MCV MCH MCHC RDW Plt Count Lymph % (Auto) [place] % (Auto) Eos % (Auto) Baso % (Auto) Lymph # (Auto) [place] # (Auto) Eos # (Auto) Baso # (Auto) Seg Neutrophils % Seg Neutrophils # Sodium Potassium Chloride Carbon Dioxide Anion Gap BUN Creatinine Estimated GFR BUN/Creatinine Ratio Glucose Calcium Total Creatine Kinase CK-MB (CK-2) CK-MB (CK-2) Rel Index Troponin T Urine Color Urine Turbidity Urine pH Ur Specific [place] Urine Protein Urine Glucose (UA) Urine Ketones Urine Blood Urine Nitrite Urine Bilirubin Urine Urobilinogen Ur Leukocyte Esterase Urine WBC (Auto) Urine RBC (Auto) Urine Mucus Salicylates < 0.3 L Urine Opiates Screen Urine Methadone Screen Acetaminophen 5.0 L Ur Barbiturates Screen Ur Phencyclidine Scrn Ur Amphetamines Screen U Benzodiazepines Scrn Urine Cocaine Screen U Marijuana (THC) Screen Plasma/Serum Alcohol < 0.01 03/16/20 03/16/20 10:57 10:57 WBC RBC Hgb Hct MCV MCH MCHC RDW Plt Count Lymph % (Auto) [place] % (Auto) Eos % (Auto) Baso % (Auto) Lymph # (Auto) [place] # (Auto) Eos # (Auto) Baso # (Auto) Seg Neutrophils % Seg Neutrophils # Sodium Potassium Chloride Carbon Dioxide Anion Gap BUN Creatinine Estimated GFR BUN/Creatinine Ratio Glucose Calcium Total Creatine Kinase CK-MB (CK-2) CK-MB (CK-2) Rel Index Troponin T Urine Color Yellow Urine Turbidity Clear Urine pH 7.0 Ur Specific [place] 1.018 Urine Protein <15 mg/dl Urine Glucose (UA) Neg Urine Ketones Neg Urine Blood Neg Urine Nitrite Neg Urine Bilirubin Neg Urine Urobilinogen < 2.0 Ur Leukocyte Esterase Neg Urine WBC (Auto) < 1.0 Urine RBC (Auto) 1.0 Urine Mucus Few Salicylates Urine Opiates Screen Presumptive negative Urine Methadone Screen Presumptive negative Acetaminophen Ur Barbiturates Screen Presumptive negative Ur Phencyclidine Scrn Presumptive negative Ur Amphetamines Screen Presumptive negative U Benzodiazepines Scrn Presumptive negative Urine Cocaine Screen Presumptive negative U Marijuana (THC) Screen Presumptive positive Plasma/Serum Alcohol - EKG Data -: EKG Interpreted by Sc EKG shows normal: sinus rhythm Rate: normal - EKG Data When compared to previous EKG there are: previous EKG unavailable Interpretation: other (Early repolarization. No ischemic changes seen) - Differential Diagnosis Schizoaffective disorder, atypical presentation for ACS, Critical care attestation.: If time is entered above; I have spent that time in minutes in the direct care of this critically ill patient, excluding procedure time. ED Disposition Clinical Impression: Substance abuse Disposition: DC-01 TO HOME OR SELFCARE Is pt being admited?: No Does the pt Need Aspirin: No Condition: Stable Additional Instructions: Follow up with current outpatient providers at [facility] Team and Dr. Short. Pt was adivsed to stop using illegal substances and be compliant with outpatient prescribed medications. [place] CRISIS AND ACCESS LINE: SUBSTANCE ABUSE PROGRAMS: [facility]: Location: [place], [place] [facility]! Address: [address] [place] [address] [facility]: Address: [address] [place] [address] [facility]: Address: [address] [place] [address] [facility]: Address: [address] [place] [address] [facility] Address: [address] [place] [id number]. Please contact above numbers to attempt placement into free based program. Medicaid Programs: [facility]: Address: [address] [place] [address] [facility]: Address: [address] [place] [id number] Referrals: SELENE GONSALVES MD [Primary Care Provider] - 3-5 Days Time of Disposition: 13:01
[2020-03-16 11:00] LABS: Basophils % (Auto) 0.6 % (0.0-1.8); Eosinophils # (Auto) 0.1 K/mm3 (0.0-0.4); Eosinophils % (Auto) 1.2 % (0.0-4.3); Hematocrit 41.4 % (35.5-45.6); Hemoglobin 14.2 gm/dl (11.8-15.2); Lymphocytes # (Auto) 1.6 K/mm3 (1.2-5.4); Lymphocytes % (Auto) 20.5 % (13.4-35.0); Mean Corpuscular HGB Conc 34 % (32-34); Mean Corpuscular Volume 96 fl (84-94); Monocytes # (Auto) 0.6 K/mm3 (0.0-0.8); Monocytes % (Auto) 7.4 % (0.0-7.3); Platelet Count 236 K/mm3 (140-440); Red Blood Count 4.31 M/mm3 (3.65-5.03); Red Cell Distribution Width 13.9 % (13.2-15.2)
[2020-03-16 11:09] LABS: Bilirubin,Urine NEG (Negative); Blood,Urine NEG (Negative); Color,Urine Yellow (Yellow); Mucus,Urine FEW /HPF; Protein,Urine <15 mg/dL mg/dL (Negative); Urobilinogen,Urine < 2.0 mg/dL (<2.0); WBC,Urine < 1.0 /HPF (0.0-6.0)
[2020-03-16 11:14] LABS: BUN/Creatinine Ratio 11; Blood Urea Nitrogen 10 mg/dL (9-20); Calcium 9.4 mg/dL (8.4-10.2); Hemolysis Index 6
[2020-03-16 11:15] LABS: Creatine Kinase MB 1.7 ng/mL (0.0-4.0)
[2020-03-16 11:16] LABS: Amphetamine Screen,Urine PRESUMPTIVE NEGATIVE; Benzodiazepines Screen,Urine PRESUMPTIVE NEGATIVE; Cannabinoid Screen,Urine PRESUMPTIVE POSITIVE; Cocaine Screen,Urine PRESUMPTIVE NEGATIVE; Methadone Screen,Urine PRESUMPTIVE NEGATIVE; Opiate Screen,Urine PRESUMPTIVE NEGATIVE
[2020-03-16 13:24] VITALS: BP 122/72
== END 2020-03-16 13:20 | disposition home or self-care (01) ==
LOC: ED 10:06
DX: F19.10 Other psychoactive substance abuse, uncomplicated (principal); F41.9 Anxiety disorder, unspecified; R44.0 Auditory hallucinations; I10 Essential (primary) hypertension; F31.9 Bipolar disorder, unspecified; F17.200 Nicotine dependence, unspecified, uncomplicated; F12.10 Cannabis abuse, uncomplicated; Z98.890 Other specified postprocedural states; Z79.899 Other long term (current) drug therapy
CPT/HCPCS: 36415; 80048; 80307; 80320; 81001; 82550; 82553; 84484; 85025; 93005; G0480

== ENCOUNTER 2021-03-30 15:41 | Emergency (ER) | payer MEDICAID ==
[2021-03-30] MEDS ORDERED: SODIUM CHLORIDE 0.9% 1000 ML 1,000 ML IV ONE (15:52)
[2021-03-30] MEDS ORDERED: LORazepam 2 MG/ML VIAL IV ONE (15:52)
--- NOTE | 2021-03-30 16:05 | Emergency Department Report ---
HPI - General Chief Complaint: Pain General Time Seen by Provider: 03/30/21 15:44 - HPI HPI: This is a 35-year-old male presents to the emergency department via EMS from home with complaint of a 2 to 3-day history of feeling like he has to be in constant movement, and unable to sit still. The patient is constantly shaking in her moving his lower extremities and sometimes his upper extremities. He has a history of schizoaffective disorder for which he is on antipsychotic medication and says "I think I am on too much." He denies any current hallucinations, suicidal or homicidal ideations. He complains of some body aches secondary to the constant movement. He denies any fever, chest pain, shortness of breath, headache, vision change, slurred speech, numbness or paresthesias. He tried some Advil for his symptoms without any relief. ED Past Medical Hx - Past Medical History Hx Hypertension: Yes Hx CVA: No Hx Heart Attack/AMI: No Hx Congestive Heart Failure: No Hx Diabetes: No Hx Deep Vein Thrombosis: No Hx Pulmonary Embolism: No Hx GERD: No Hx Liver Disease: No Hx Renal Disease: No Hx Sickle Cell Disease: No Hx Arthritis: No Hx Headaches / Migraines: No Hx Seizures: No Hx Kidney Stones: No Hx Psychiatric Treatment: Yes (bipolar, schizophrenia-effective) Hx Asthma: No Hx COPD: No Hx Tuberculosis: No Hx Dementia: No Hx HIV: No - Surgical History Hx Coronary Stent: No Hx Open Heart Surgery: No Hx Pacemaker: No Hx Internal Defibrillator: No Hx Cholecystectomy: No Hx Appendectomy: No Hx Breast Surgery: No Additional Surgical History: to remove glass from foot as a child - Social History Smoking Status: Current Every Day Smoker (1 pack/day) Substance Use Type: Alcohol (Occasional), Marijuana, Other (Sirisha) - Medications Home Medications: Home Medications Medication Instructions Recorded Confirmed Last Taken Type hydrOXYzine PAMOATE [Vistaril] 50 mg PO BID 05/26/18 02/28/19 02/27/19 History lisinopriL [Zestril] 5 mg PO QDAY 05/26/18 02/28/19 02/27/19 History ALPRAZolam [Xanax Xr] 20 mg PO DAILY 09/07/18 02/28/19 02/27/19 History Nicotine [Nicotine Patch] 1 each TD DAILY 09/07/18 02/28/19 02/27/19 History Paliperidone Palmitate [Invega 156 mg IM QMONTH 02/28/19 02/28/19 02/12/19 History Sustenna] ED Review of Systems ROS: Stated complaint: GENERALIZED PAIN Other details as noted in HPI Comment: All other systems reviewed and negative Constitutional: denies: chills, fever Eyes: denies: eye pain, vision change ENT: denies: ear pain, throat pain Respiratory: denies: cough, shortness of breath Cardiovascular: denies: chest pain, palpitations Gastrointestinal: denies: abdominal pain, vomiting Genitourinary: denies: dysuria, discharge Musculoskeletal: myalgia. denies: joint swelling Skin: denies: rash, lesions Neurological: denies: headache, weakness, numbness Physical Exam - Physical Exam Vital Signs: Vital Signs 03/30/21 15:51 Temperature 98.4 F Pulse Rate 125 H Respiratory 18 Rate Blood Pressure 180/104 [Right] Physical Exam: GENERAL: The patient is well-developed well-nourished. HENT: Normocephalic. Atraumatic. Patient has moist mucous membranes. EYES: Extraocular motions are intact. NECK: Supple. Trachea is midline. CHEST/LUNGS: Clear to auscultation. There is no respiratory distress noted. HEART/CARDIOVASCULAR: Regular. There is mild tachycardia. There is no murmur. ABDOMEN: Abdomen is soft, nontender. Patient has normal bowel sounds. SKIN: Skin is warm and dry. NEURO: The patient is awake, alert, and oriented. The patient is cooperative. The patient has no focal neurologic deficits. Normal speech. Cranial nerves II through XII grossly intact. MUSCULOSKELETAL: There is no tenderness or deformity. There is no limitation range of motion. PSYCH: Patient appears anxious. ED Course Vital Signs 03/30/21 15:51 Temperature 98.4 F Pulse Rate 125 H Respiratory 18 Rate Blood Pressure 180/104 [Right] ED Medical Decision Making - Lab Data Result diagrams: 03/30/21 15:58 03/30/21 15:58 Lab Results 03/30/21 03/30/21 03/30/21 Range/Units 15:58 15:58 15:58 WBC 10.7 (4.5-11.0) K/mm3 RBC 4.44 (3.65-5.03) M/mm3 Hgb 14.3 (11.8-15.2) gm/dl Hct 41.7 (35.5-45.6) % MCV 94 (84-94) fl MCH 32 (28-32) pg MCHC 34 (32-34) % RDW 13.9 (13.2-15.2) % Plt Count 292 (140-440) K/mm3 Lymph % (Auto) 13.7 (13.4-35.0) % [place] % (Auto) 7.3 (0.0-7.3) % Eos % (Auto) 1.6 (0.0-4.3) % Baso % (Auto) 0.4 (0.0-1.8) % Lymph # (Auto) 1.5 (1.2-5.4) K/mm3 [place] # (Auto) 0.8 (0.0-0.8) K/mm3 Eos # (Auto) 0.2 (0.0-0.4) K/mm3 Baso # (Auto) 0.0 (0.0-0.1) K/mm3 Seg Neutrophils % 77.0 H (40.0-70.0) % Seg Neutrophils # 8.3 H (1.8-7.7) K/mm3 Sodium 138 (137-145) mmol/L Potassium 3.9 (3.6-5.0) mmol/L Chloride 103.5 (98-107) mmol/L Carbon Dioxide 24 (22-30) mmol/L Anion Gap 14 mmol/L BUN 10 (9-20) mg/dL Creatinine 0.9 (0.8-1.3) mg/dL Estimated GFR > 60 ml/min BUN/Creatinine Ratio 11 % Glucose 170 H (75-100) mg/dL Calcium 9.6 (8.4-10.2) mg/dL Magnesium (1.7-2.3) mg/dL Total Bilirubin 0.20 (0.1-1.2) mg/dL AST 17 (5-40) units/L ALT 30 (7-56) units/L Alkaline Phosphatase 78 (35-129) units/L Total Protein 7.4 (6.3-8.2) g/dL Albumin 4.6 (3.9-5) g/dL Albumin/Globulin Ratio 1.6 % TSH 1.340 (0.270-4.200) mlU/mL 03/30/21 Range/Units 15:58 WBC (4.5-11.0) K/mm3 RBC (3.65-5.03) M/mm3 Hgb (11.8-15.2) gm/dl Hct (35.5-45.6) % MCV (84-94) fl MCH (28-32) pg MCHC (32-34) % RDW (13.2-15.2) % Plt Count (140-440) K/mm3 Lymph % (Auto) (13.4-35.0) % [place] % (Auto) (0.0-7.3) % Eos % (Auto) (0.0-4.3) % Baso % (Auto) (0.0-1.8) % Lymph # (Auto) (1.2-5.4) K/mm3 [place] # (Auto) (0.0-0.8) K/mm3 Eos # (Auto) (0.0-0.4) K/mm3 Baso # (Auto) (0.0-0.1) K/mm3 Seg Neutrophils % (40.0-70.0) % Seg Neutrophils # (1.8-7.7) K/mm3 Sodium (137-145) mmol/L Potassium (3.6-5.0) mmol/L Chloride (98-107) mmol/L Carbon Dioxide (22-30) mmol/L Anion Gap mmol/L BUN (9-20) mg/dL Creatinine (0.8-1.3) mg/dL Estimated GFR ml/min BUN/Creatinine Ratio % Glucose (75-100) mg/dL Calcium (8.4-10.2) mg/dL Magnesium 2.20 (1.7-2.3) mg/dL Total Bilirubin (0.1-1.2) mg/dL AST (5-40) units/L ALT (7-56) units/L Alkaline Phosphatase (35-129) units/L Total Protein (6.3-8.2) g/dL Albumin (3.9-5) g/dL Albumin/Globulin Ratio % TSH (0.270-4.200) mlU/mL - Medical Decision Making This patient presents to the emergency department with a complaint of a 3-day history of what appears to be akathisia. He appears slightly anxious, and is having trouble sitting still, and is constantly moving his legs. He presents with some mild tachycardia. Otherwise heart and lung sounds are normal to auscultation. He does not appear in any respiratory or acute distress. Patient was given IV fluid resuscitation and a dose of Ativan. Labs have been mostly unremarkable including CBC, metabolic panel, and normal thyroid function. He was reevaluated and is seen resting comfortably, sitting still, has stopped persistently moving his extremities, and no longer appears anxious. He appears safe for discharge home and has been instructed to follow-up with his primary care physician and psychiatrist. Critical Care Time: No Critical care attestation.: If time is entered above; I have spent that time in minutes in the direct care of this critically ill patient, excluding procedure time. ED Disposition Clinical Impression: Akathisia, Body aches Disposition: 01 HOME / SELF CARE / HOMELESS Is pt being admited?: No Condition: Stable Instructions: Muscle Pain, Adult Additional Instructions: Please follow-up with your primary care physician and psychiatrist. Increase your oral rehydration. Return to the emergency department with any worsening of your symptoms, new or concerning symptoms not addressed during this current emergency department visit, or with any acute distress. Referrals: PRIMARY CARE, [Primary Care Provider] - 2-3 Days Psychiatrist, Your [Other] - 2-3 Days Time of Disposition: 17:23
[2021-03-30 16:10] LABS: Basophils % (Auto) 0.4 % (0.0-1.8); Eosinophils # (Auto) 0.2 K/mm3 (0.0-0.4); Eosinophils % (Auto) 1.6 % (0.0-4.3); Hematocrit 41.7 % (35.5-45.6); Hemoglobin 14.3 gm/dl (11.8-15.2); Lymphocytes # (Auto) 1.5 K/mm3 (1.2-5.4); Lymphocytes % (Auto) 13.7 % (13.4-35.0); Mean Corpuscular HGB Conc 34 % (32-34); Mean Corpuscular Volume 94 fl (84-94); Monocytes # (Auto) 0.8 K/mm3 (0.0-0.8); Monocytes % (Auto) 7.3 % (0.0-7.3); Platelet Count 292 K/mm3 (140-440); Red Blood Count 4.44 M/mm3 (3.65-5.03); Red Cell Distribution Width 13.9 % (13.2-15.2)
[2021-03-30 16:31] LABS: Alanine Aminotransferase 30 units/L (7-56); Albumin 4.6 g/dL (3.9-5); BUN/Creatinine Ratio 11; Blood Urea Nitrogen 10 mg/dL (9-20); Calcium 9.6 mg/dL (8.4-10.2); Hemolysis Index 6
[2021-03-30 17:26] VITALS: BP 147/97
== END 2021-03-30 17:57 | disposition home or self-care (01) ==
LOC: ED 15:41
DX: G25.71 Drug induced akathisia (principal); M79.18 Myalgia, other site; F17.200 Nicotine dependence, unspecified, uncomplicated; F12.90 Cannabis use, unspecified, uncomplicated; I10 Essential (primary) hypertension; F31.9 Bipolar disorder, unspecified; F20.9 Schizophrenia, unspecified; Z72.89 Other problems related to lifestyle
CPT/HCPCS: 36415; 80053; 83735; 84443; 85025; 96361; 96374; 99283; J2060; J7030

== ENCOUNTER 2021-06-07 01:05 | Emergency (ER) | payer MEDICAID ==
--- NOTE | 2021-06-07 01:19 | Emergency Department Report ---
Blank Doc - Documentation Documentation: Patient was seen as part of the MSE process. He is feeling homicidal towards the voices in his head. He has a long history of auditory hallucinations. He is not suicidal. He does state he has been taking his medications. On exam, he seems to be calm and cooperative. Labs have been ordered. Another provider will evaluate the patient and complete the care.
[2021-06-07 01:37] LABS: Basophils # (Auto) 0.1 K/mm3 (0.0-0.1); Basophils % (Auto) 0.8 % (0.0-1.8); Eosinophils # (Auto) 0.3 K/mm3 (0.0-0.4); Eosinophils % (Auto) 2.7 % (0.0-4.3); Hematocrit 44.3 % (35.5-45.6); Hemoglobin 14.6 gm/dl (11.8-15.2); Lymphocytes # (Auto) 2.8 K/mm3 (1.2-5.4); Lymphocytes % (Auto) 23.2 % (13.4-35.0); Mean Corpuscular HGB Conc 33 % (32-34); Mean Corpuscular Volume 96 fl (84-94); Monocytes % (Auto) 8.7 % (0.0-7.3); Platelet Count 259 K/mm3 (140-440); Red Blood Count 4.62 M/mm3 (3.65-5.03); Red Cell Distribution Width 13.8 % (13.2-15.2)
--- NOTE | 2021-06-07 01:47 | Emergency Department Report ---
HPI - General Chief Complaint: Psych Time Seen by Provider: 06/07/21 01:34 - HPI HPI: 35-year-old male with history of hypertension and schizoaffective disorder presents complaining of 1 day of increased agitation as well as disturbing auditory hallucinations and homicidal ideation. The patient states that he has been taking his medications as prescribed. He reports that today he has had increased voices in his head telling him that he has to suffer. He also says he has homicidal thoughts towards "whoever is causing these voices in my head. I want to find them and strangle them to ." He denies suicidal ideation. He denies any physical symptoms or complaints of any kind. He is vaccinated against COVID-19. ED Past Medical Hx - Past Medical History Hx Hypertension: Yes Hx CVA: No Hx Heart Attack/AMI: No Hx Congestive Heart Failure: No Hx Diabetes: No Hx Deep Vein Thrombosis: No Hx Pulmonary Embolism: No Hx GERD: No Hx Liver Disease: No Hx Renal Disease: No Hx Sickle Cell Disease: No Hx Arthritis: No Hx Headaches / Migraines: No Hx Seizures: No Hx Kidney Stones: No Hx Psychiatric Treatment: Yes (bipolar, schizophrenia-effective) Hx Asthma: No Hx COPD: No Hx Tuberculosis: No Hx Dementia: No Hx HIV: No - Surgical History Hx Coronary Stent: No Hx Open Heart Surgery: No Hx Pacemaker: No Hx Internal Defibrillator: No Hx Cholecystectomy: No Hx Appendectomy: No Hx Breast Surgery: No Additional Surgical History: to remove glass from foot as a child - Social History Smoking Status: Current Every Day Smoker (1 pack/day) Substance Use Type: Alcohol (Occasional), Marijuana, Other (Sirisha) - Medications Home Medications: Home Medications Medication Instructions Recorded Confirmed Last Taken Type hydrOXYzine PAMOATE [Vistaril] 50 mg PO BID 05/26/18 02/28/19 02/27/19 History lisinopriL [Zestril] 5 mg PO QDAY 05/26/18 02/28/19 02/27/19 History ALPRAZolam [Xanax Xr] 20 mg PO DAILY 09/07/18 02/28/19 02/27/19 History Nicotine [Nicotine Patch] 1 each TD DAILY 09/07/18 02/28/19 02/27/19 History Paliperidone Palmitate [Invega 156 mg IM QMONTH 02/28/19 02/28/19 02/12/19 History Sustenna] ED Review of Systems ROS: Stated complaint: PSYCH Other details as noted in HPI Comment: All other systems reviewed and negative Constitutional: denies: chills, fever Eyes: denies: eye pain, vision change ENT: denies: throat pain, congestion Respiratory: denies: cough, shortness of breath Cardiovascular: denies: chest pain, palpitations Gastrointestinal: denies: abdominal pain, nausea, vomiting Genitourinary: denies: dysuria, frequency, discharge Musculoskeletal: denies: back pain, arthralgia Skin: denies: rash, lesions Neurological: denies: headache, weakness, numbness Psychiatric: anxiety, auditory hallucinations, homicidal thoughts. denies: visual hallucinations, suicidal thoughts Physical Exam - Physical Exam Vital Signs: Vital Signs 06/07/21 06/07/21 01:06 01:24 Temperature 98.9 F 98.5 F Pulse Rate 69 78 Respiratory 18 16 Rate Blood Pressure 142/73 113/86 [Left] O2 Sat by Pulse 97 97 Oximetry Physical Exam: GENERAL: Well developed and well nourished. No acute distress HEAD: Normocephalic. No obvious signs of trauma. ENT: Moist mucous membranes. EYES: Extraocular movements are intact. Pupils are equal round and reactive to light bilaterally NECK: Supple. Full ROM is intact. Trachea is midline. LUNGS: Nonlabored breathing. Equal chest rise bilaterally. Clear to auscultation bilaterally. CARDIOVASCULAR: Regular rate and rhythm. No murmurs or rubs. VASCULAR: Cap refill < 2 seconds ABDOMEN: Abdomen is soft and nondistended. There is no significant tenderness, guarding or rebound. SKIN: Skin is warm and dry NEURO: Patient is awake, alert, and oriented. checkman II-XII grossly intact. No focal deficits. Normal motor and sensory exam throughout. Normal speech. MUSCULOSKELETAL: No obvious deformities. No significant tenderness. Normal ROM throughout. ED Course Vital Signs 06/07/21 06/07/21 01:06 01:24 Temperature 98.9 F 98.5 F Pulse Rate 69 78 Respiratory 18 16 Rate Blood Pressure 142/73 113/86 [Left] O2 Sat by Pulse 97 97 Oximetry ED Medical Decision Making - Lab Data Result diagrams: 06/07/21 08:04 06/07/21 01:29 - Medical Decision Making 35-year-old male with history of schizoaffective disorder presenting with worsening agitation as well as auditory hallucinations and homicidal thoughts. He displays signs of paranoia saying that he wants to find whoever is causing the voices in his head and kill them. He has no physical symptoms or complaints. He is afebrile and with normal vital signs. Physical examination is grossly within normal limits. Given the patient's homicidal ideations and paranoia as well as auditory hallucinations, 1013 order has been signed and initiated. Medical clearance labs have been ordered. Labs reveal mildly elevated white blood cell count of 12.0. There is no significant anemia. Kidney function is normal and there are no significant electrolyte abnormalities. The patient has no signs or symptoms of infection. I have ordered a repeat CBC for the morning. The patient is medically cleared for psychiatric evaluation and placement. Urinalysis and UDS are still pending. Critical care attestation.: If time is entered above; I have spent that time in minutes in the direct care of this critically ill patient, excluding procedure time. ED Disposition Clinical Impression: Homicidal ideation, Schizoaffective disorder, Auditory hallucinations, Psycho sis Disposition: HOME / SELF CARE / HOMELESS Is pt being admited?: No Condition: Stable Instructions: Psychosis Additional Instructions: Continue current medications as prescribed and follow-up with any of the resources provided Professional and Agency Contacts To help Resolve Crises (28/12) [place] Crisis Line: Suicide Prevention Line: Crisis Text Line: Text START to 619894 Emergency: 911 Outpatient [facility] Behavioral Health Resources: SON: [facility] [address] [place], [place] [address] [facility] [address] [place] [address] Wednesday thru Wednesday - 8am - 5pm Call to schedule an assessment for mental health and substance abuse programs [facility] Address: [address] [place] [address] Wednesday thru Wednesday- 7am-2pm [facility] Address: [address] [place] [address] Wednesday thru Wednesday: 8:30AM-5PM Referrals: [facility] [Provider Group] - 3-5 Days PRIMARY CARE, [Primary Care Provider] - 3-5 Days
[2021-06-07 01:59] LABS: Alanine Aminotransferase 34 units/L (7-56); Albumin 4.6 g/dL (3.9-5); BUN/Creatinine Ratio 11; Blood Urea Nitrogen 11 mg/dL (9-20); Calcium 9.4 mg/dL (8.4-10.2); Hemolysis Index 8
[2021-06-07 08:46] LABS: Basophils % (Auto) 0.3 % (0.0-1.8); Eosinophils # (Auto) 0.3 K/mm3 (0.0-0.4); Eosinophils % (Auto) 2.6 % (0.0-4.3); Hematocrit 42.3 % (35.5-45.6); Hemoglobin 13.7 gm/dl (11.8-15.2); Lymphocytes # (Auto) 2.9 K/mm3 (1.2-5.4); Lymphocytes % (Auto) 25.7 % (13.4-35.0); Mean Corpuscular HGB Conc 32 % (32-34); Mean Corpuscular Volume 97 fl (84-94); Monocytes # (Auto) 0.7 K/mm3 (0.0-0.8); Monocytes % (Auto) 5.8 % (0.0-7.3); Platelet Count 235 K/mm3 (140-440); Red Blood Count 4.38 M/mm3 (3.65-5.03)
--- NOTE | 2021-06-07 10:29 | Consultation ---
History of Present Illness - Reason for Consult Consult date: 06/07/21 Reason for consult: agitation - History of Present Psychiatric Illness The patient was seen today. He is a 35y/o male for hallucinations and feeling homicidal. During my evaluation of the patient he is calm, and cooperative. He says "I was incredible irritable yesterday." The patient "it was to the point where I felt homicidal." The patient says "I don't feel like that now. I think I just needed some rest." He says he has a history of bipolar and is compliant with his medications and has them at home. The patient says he still hears the voices, but states "they are not telling me anything negative. I hear voices all the time for about 4 to 5 years." He says he has a history of thc and metha mphetamines in the past. The patient says he lives with someone. He says he's unemployed and single. REVIEW OF SYSTEMS Constitutional: Negative for weight loss ENT: Negative for stridor Respiratory: Negative for cough or hemoptysis All other systems reviewed and are negative MENTAL STATUS EXAMINATION General Appearance and Behavior: Age appropriate, good hygiene, wearing appropriate clothes. calm, cooperative Cooperation: Cooperative Psychomotor Behavior: Psychomotor normal Mood: better Affect and affective range: congruent with stated mood Thought Process: goal directed Thought Content: None Speech: Normal tone and pace Suicidal Ideation: Denies Homicidal Ideation: Denies Hallucinations: Auditory Delusions: None elicited Impulse Control: Limited Insight and Judgment: Limited insight and fair judgment Memory: normal Attention: Attentive Orientation: a/o x 3 Assessment (1) Bipolar Disorder Treatment Plan d/c 1013 Continue home medications Medical: per primary Disposition: Do not recommend acute psychiatric inpatient treatment. The patient understands that if SI/HI or any fear of endangerment arise he is to seek immediate assistance The fur blowing machine operator to give the patient all necessary resources and further discuss safety plan He is to follow up in 7 to 14 days upon discharge with outpatient Will sign off. Thanks Case staffed with Dr. Dai Medications and Allergies Allergies Allergy/AdvReac Type Severity Reaction Status Date / Time No Known Allergies Allergy Verified 03/30/21 16:13 Home Medications Medication Instructions Recorded Confirmed Last Taken Type hydrOXYzine PAMOATE [Vistaril] 50 mg PO BID 05/26/18 02/28/1902/27/19 History lisinopriL [Zestril] 5 mg PO QDAY 05/26/18 02/28/19 02/27/19 History ALPRAZolam [Xanax Xr] 20 mg PO DAILY 09/07/18 02/28/19 02/27/19 History Nicotine [Nicotine Patch] 1 each TD DAILY 09/07/18 02/28/19 02/27/19 History Paliperidone Palmitate [Invega 156 mg IM QMONTH 02/28/19 02/28/19 02/12/19 History Sustenna] Mental Status Exam - Vital signs Last Vital Signs Temp 98.7 F 06/07/21 09:21 Pulse 83 06/07/21 09:21 Resp 18 06/07/21 09:21 BP 108/50 06/07/21 09:21 Pulse Ox 97 06/07/21 09:22 Results Result Diagrams: 06/07/21 08:04 06/07/21 01:29 Abnormal lab results 06/07/21 06/07/21 06/07/21 Range/Units 01:29 01:39 01:39 WBC 12.0 H (4.5-11.0) K/mm3 MCV 96 H (84-94) fl [place] % (Auto) 8.7 H (0.0-7.3) % [place] # (Auto) 1.0 H (0.0-0.8) K/mm3 Seg Neutrophils # 7.8 H (1.8-7.7) K/mm3 Salicylates < 0.3 L (2.8-20.0) mg/dL Acetaminophen 5.0 L (10.0-30.0) ug/mL 06/07/21 Range/Units 08:04 WBC 11.4 H (4.5-11.0) K/mm3 MCV 97 H (84-94) fl [place] % (Auto) (0.0-7.3) % [place] # (Auto) (0.0-0.8) K/mm3 Seg Neutrophils # (1.8-7.7) K/mm3 Salicylates (2.8-20.0) mg/dL Acetaminophen (10.0-30.0) ug/mL All other labs normal.
--- NOTE | 2021-06-07 12:37 | Emergency Department Report ---
Blank Doc - Documentation Documentation: 35-year-old male with a history of bipolar disorde initially presenting with h omicidal ideation and psychosis. After resting overnight patient is no longer homicidal and has been cleared by mental health for discharge to continue his current medications.
[2021-06-07 13:46] VITALS: BP 131/86
== END 2021-06-07 13:05 | disposition home or self-care (01) ==
LOC: ED 01:05
DX: R45.850 Homicidal ideations (principal); R44.0 Auditory hallucinations; I10 Essential (primary) hypertension; Z20.822 Contact with and (suspected) exposure to COVID-19
CPT/HCPCS: 36415; 80053; 85025; 99284; U0003; 80320; G0480

== ENCOUNTER 2021-07-27 16:30 | Emergency (ER) | payer MEDICAID ==
[2021-07-27 16:42] VITALS: BP 155/99
== END 2021-07-27 20:30 | disposition left against medical advice (07) ==
LOC: ED 16:30
DX: F41.9 Anxiety disorder, unspecified (principal); Z76.0 Encounter for issue of repeat prescription; Z53.1 Procedure and treatment not carried out because of patient's decision for reasons of belief and group pressure

== ENCOUNTER 2021-07-28 08:27 | Emergency (ER) | payer MEDICAID ==
[2021-07-28 09:57] LABS: Basophils % (Auto) 0.3 % (0.0-1.8); Eosinophils % (Auto) 0.1 % (0.0-4.3); Hematocrit 41.2 % (35.5-45.6); Hemoglobin 13.8 gm/dl (11.8-15.2); Lymphocytes # (Auto) 1.6 K/mm3 (1.2-5.4); Lymphocytes % (Auto) 12.9 % (13.4-35.0); Mean Corpuscular HGB Conc 34 % (32-34); Mean Corpuscular Volume 95 fl (84-94); Monocytes # (Auto) 0.9 K/mm3 (0.0-0.8); Monocytes % (Auto) 7.4 % (0.0-7.3); Platelet Count 264 K/mm3 (140-440); Red Blood Count 4.35 M/mm3 (3.65-5.03); Red Cell Distribution Width 13.9 % (13.2-15.2)
[2021-07-28] MEDS ORDERED: hydrOXYzine PAMOATE 25 MG CAP PO ONE (09:59)
--- NOTE | 2021-07-28 10:06 | Emergency Department Report ---
HPI - General Chief Complaint: Psych Time Seen by Provider: 07/28/21 09:19 - HPI HPI: MSE 7 The patient is a 35-year-old male present with a chief complaint of "I was very stressed, my meds are not working right. I am having crazy delusions." The patient has history of bipolar disorder and schizoaffective disorder. Patient admits to suicidal ideation since he has been in the emergency department. Patient denies any attempts at harming himself and denies having a plan. Patient admits to auditory hallucinations. ED Past Medical Hx - Past Medical History Previous Medical History?: Yes Hx Hypertension: Yes Hx Psychiatric Treatment: Yes (bipolar, schizophrenia-effective) - Surgical History Past Surgical History?: Yes Additional Surgical History: to remove glass from foot as a child - Family History Family history: no significant - Social History Smoking Status: Heavy Tobacco Smoker (2 packs/day) Substance Use Type: Alcohol (Occasional), Other (Sirisha, Adderall) - Medications Home Medications: Home Medications Medication Instructions Recorded Confirmed Last Taken Type hydrOXYzine PAMOATE [Vistaril] 50 mg PO BID 05/26/18 02/28/19 02/27/19 History lisinopriL [Zestril] 5 mg PO QDAY 05/26/18 02/28/19 02/27/19 History ALPRAZolam [Xanax Xr] 20 mg PO DAILY 09/07/18 02/28/19 02/27/19 History Nicotine [Nicotine Patch] 1 each TD DAILY 09/07/18 02/28/19 02/27/19 History Paliperidone Palmitate [Invega 156 mg IM QMONTH 02/28/19 02/28/19 02/12/19 History Sustenna] ED Review of Systems ROS: Stated complaint: STRESS,BACK PAIN, MH ISSUES Other details as noted in HPI Constitutional: no symptoms reported Eyes: denies: eye pain ENT: denies: throat pain Respiratory: no symptoms reported Cardiovascular: denies: chest pain Endocrine: no symptoms reported Gastrointestinal: denies: abdominal pain Genitourinary: denies: dysuria Musculoskeletal: denies: back pain Neurological: denies: headache Psychiatric: auditory hallucinations, suicidal thoughts Physical Exam - Physical Exam Vital Signs: Vital Signs 07/28/21 09:13 Temperature 98.6 F Pulse Rate 68 Respiratory 16 Rate Blood Pressure 137/87 [Left] O2 Sat by Pulse 100 Oximetry Physical Exam: GENERAL: The patient is well-developed well-nourished male standing in room not appearing to be in acute distress. [] HEENT: Normocephalic. Atraumatic. Extraocular motions are intact. Patient has moist mucous membranes. NECK: Supple. Trachea midline CHEST/LUNGS: Clear to auscultation. There is no respiratory distress noted. HEART/CARDIOVASCULAR: Regular. There is no tachycardia. There is no gallop rub or murmur. ABDOMEN: Abdomen is soft, nontender. Patient has normal bowel sounds. There is no abdominal distention. SKIN: There is no rash. There is no edema. There is no diaphoresis. NEURO: The patient is awake, alert, and oriented. The patient is cooperative. The patient has no focal neurologic deficits. The patient has normal speech and gait. GCS 15 MUSCULOSKELETAL: There is no evidence of acute injury. ED Course Vital Signs 07/28/21 09:13 Temperature 98.6 F Pulse Rate 68 Respiratory 16 Rate Blood Pressure 137/87 [Left] O2 Sat by Pulse 100 Oximetry ED Medical Decision Making - Lab Data Result diagrams: 07/28/21 09:40 07/28/21 09:40 Laboratory Tests 07/28/21 07/28/21 07/28/21 09:40 09:40 09:40 WBC 12.4 H RBC 4.35 Hgb 13.8 Hct 41.2 MCV 95 H MCH 32 MCHC 34 RDW 13.9 Plt Count 264 Lymph % (Auto) 12.9 L [place] % (Auto) 7.4 H Eos % (Auto) 0.1 Baso % (Auto) 0.3 Lymph # (Auto) 1.6 [place] # (Auto) 0.9 H Eos # (Auto) 0.0 Baso # (Auto) 0.0 Seg Neutrophils % 79.3 H Seg Neutrophils # 9.8 H Sodium 136 L Potassium 3.7 Chloride 99.4 Carbon Dioxide 21 L Anion Gap 19 BUN 4 L Creatinine 0.6 L Estimated GFR > 60 BUN/Creatinine Ratio 7 Glucose 104 H Calcium 9.8 Total Bilirubin 0.30 AST 23 ALT 21 Alkaline Phosphatase 84 Total Protein 7.6 Albumin 4.8 Albumin/Globulin Ratio 1.7 Urine Color Urine Turbidity Urine pH Ur Specific [place] Urine Protein Urine Glucose (UA) Urine Ketones Urine Blood Urine Nitrite Urine Bilirubin Urine Urobilinogen Ur Leukocyte Esterase Urine WBC (Auto) Urine RBC (Auto) Urine Mucus Salicylates < 0.3 L Urine Opiates Screen Urine Methadone Screen Acetaminophen Ur Barbiturates Screen Ur Phencyclidine Scrn Ur Amphetamines Screen U Benzodiazepines Scrn Urine Cocaine Screen U Marijuana (THC) Screen Drugs of Abuse Note Plasma/Serum Alcohol 07/28/21 07/28/21 07/28/21 09:40 09:40 10:47 WBC RBC Hgb Hct MCV MCH MCHC RDW Plt Count Lymph % (Auto) [place] % (Auto) Eos % (Auto) Baso % (Auto) Lymph # (Auto) [place] # (Auto) Eos # (Auto) Baso # (Auto) Seg Neutrophils % Seg Neutrophils # Sodium Potassium Chloride Carbon Dioxide Anion Gap BUN Creatinine Estimated GFR BUN/Creatinine Ratio Glucose Calcium Total Bilirubin AST ALT Alkaline Phosphatase Total Protein Albumin Albumin/Globulin Ratio Urine Color Colorless Urine Turbidity Clear Urine pH 6.0 Ur Specific [place] 1.001 L Urine Protein <15 mg/dl Urine Glucose (UA) Neg Urine Ketones Tr Urine Blood Sm Urine Nitrite Neg Urine Bilirubin Neg Urine Urobilinogen < 2.0 Ur Leukocyte Esterase Neg Urine WBC (Auto) < 1.0 Urine RBC (Auto) < 1.0 Urine Mucus Few Salicylates Urine Opiates Screen Urine Methadone Screen Acetaminophen 5.0 L Ur Barbiturates Screen Ur Phencyclidine Scrn Ur Amphetamines Screen U Benzodiazepines Scrn Urine Cocaine Screen U Marijuana (THC) Screen Drugs of Abuse Note Plasma/Serum Alcohol < 0.01 07/28/21 10:47 WBC RBC Hgb Hct MCV MCH MCHC RDW Plt Count Lymph % (Auto) [place] % (Auto) Eos % (Auto) Baso % (Auto) Lymph # (Auto) [place] # (Auto) Eos # (Auto) Baso # (Auto) Seg Neutrophils % Seg Neutrophils # Sodium Potassium Chloride Carbon Dioxide Anion Gap BUN Creatinine Estimated GFR BUN/Creatinine Ratio Glucose Calcium Total Bilirubin AST ALT Alkaline Phosphatase Total Protein Albumin Albumin/Globulin Ratio Urine Color Urine Turbidity Urine pH Ur Specific [place] Urine Protein Urine Glucose (UA) Urine Ketones Urine Blood Urine Nitrite Urine Bilirubin Urine Urobilinogen Ur Leukocyte Esterase Urine WBC (Auto) Urine RBC (Auto) Urine Mucus Salicylates Urine Opiates Screen Negative Urine Methadone Screen Negative Acetaminophen Ur Barbiturates Screen Negative Ur Phencyclidine Scrn Negative Ur Amphetamines Screen Negative U Benzodiazepines Scrn Negative Urine Cocaine Screen Negative U Marijuana (THC) Screen Negative Drugs of Abuse Note Disclamer Plasma/Serum Alcohol - Differential Diagnosis Schizoaffective disorder, suicidal ideation Critical care attestation.: If time is entered above; I have spent that time in minutes in the direct care of this critically ill patient, excluding procedure time. ED Disposition Clinical Impression: Suicidal ideation, Schizoaffective disorder Disposition: [address] [place] [address] Is pt being admited?: No Does the pt Need Aspirin: No Condition: Stable Referrals: PRIMARY CAREMD [Primary Care Provider] - 3-5 Days Time of Disposition: 13:39
[2021-07-28 10:19] LABS: Alanine Aminotransferase 21 units/L (7-56); Albumin 4.8 g/dL (3.9-5); Blood Urea Nitrogen 4 mg/dL (9-20); Calcium 9.8 mg/dL (8.4-10.2); Hemolysis Index 5
[2021-07-28 10:24] LABS: BUN/Creatinine Ratio 7
[2021-07-28 10:55] LABS: Bilirubin,Urine NEG (Negative); Blood,Urine SM (Negative); Color,Urine Colorless (Yellow); Mucus,Urine FEW /HPF; Protein,Urine <15 mg/dL mg/dL (Negative); Urobilinogen,Urine < 2.0 mg/dL (<2.0)
[2021-07-28 10:56] LABS: RBC,Urine < 1.0 /HPF (0.0-6.0); WBC,Urine < 1.0 /HPF (0.0-6.0)
[2021-07-28 11:03] LABS: Amphetamine Screen,Urine Negative; Benzodiazepines Screen,Urine Negative; Cannabinoid Screen,Urine Negative; Cocaine Screen,Urine Negative; Methadone Screen,Urine Negative; Opiate Screen,Urine Negative
--- NOTE | 2021-07-29 12:00 | Consultation ---
History of Present Illness - Reason for Consult Consult date: 07/29/21 Reason for consult: mental health evaluation - History of Present Psychiatric Illness ED Note: The patient is a 35-year-old male present with a chief complaint of "I was very stressed, my meds are not working right. I am having crazy delusions." The patient has history of bipolar disorder and schizoaffective disorder. Patient admits to suicidal ideation since he has been in the emergency department. Patient denies any attempts at harming himself and denies having a plan. Patient admits to auditory hallucinations. The patient is a 35 year old male with history of schizoaffective disorder. In my encounter with the patient, he is circumstantial. He states he was having wired thoughts due to stress " my thoughts took over my whole world and the stress is hard to handle." The patient denies any current suicidal ideation and denies hallucinations. PAST PSYCHIATRIC HISTORY: Diagnoses: Schizoaffective Suicide attempts or Self-harm behavior: yes Prior psychiatric hospitalizations: yes Substance Abuse history: marijuana Previous psychiatric medications tried: unable to recall Outpatient treatment: unknown PAST MEDICAL HISTORY: None reported or document Family Psychiatric History: None reported or documented SOCIAL HISTORY Marital Status: Single Living Arrangements: lives in a care home Employment Status: Unemployed Access to guns/weapons: Denies Education: some college History of Abuse: denies Legal History: denies REVIEW OF SYSTEMS Constitutional: Negative for weight loss ENT: Negative for stridor Respiratory: Negative for cough or hemoptysis All other systems reviewed and are negative MENTAL STATUS EXAMINATION General Appearance and Behavior: Age appropriate, good hygiene, wearing lupe ropriate clothes, calm and cooperative polite with questioning. Cooperation: engaged Psychomotor Behavior: Psychomotor normal Mood: Depressed/ anxious Affect and affective range: congruent with stated mood Thought Process: circumstantial Thought Content: Not suicidal Speech: Normal volume, Regular rate and rhythm, Suicidal Ideation: Denies Homicidal Ideation: Denies Hallucinations: Denies Delusions: paranoid Impulse Control: Unimpaired Insight and Judgment: Limited Memory: Normal Attention: attentive Orientation: a/o Assessment and Plan (1) Bipolar Current Visit: Yes Status: Acute 1013 Treatment Plan Continue home meds. The patient to comply with previously prescribed medications Risks, benefits and alternatives of medications discussed with the patient, questions answered and consent obtained from patient. PSYCHOTHERAPY: Supportive psychotherapy provided MEDICAL: Per primary team DELIRIUM PRECAUTIONS: Please re-orient patient frequently, keep lights on during the day, and minimize benzodiazepines and opiates as these medications could worsen patient's confusion. FIELD ADVISOR: Defer to primary DISPOSITION:Recommend acute inpatient psychiatric hospitalization at this time. FOLLOW-UP: Will follow. Thank you for the consult. Please contact with any questions and/or concerns. Medications and Allergies Medications and Allergies Allergies Allergy/AdvReac Type Severity Reaction Status Date / Time No Known Allergies Allergy Verified 03/30/21 16:13 Home Medications Medication Instructions Recorded Confirmed Last Taken Type hydrOXYzine PAMOATE [Vistaril] 50 mg PO BID 05/26/18 07/29/21 02/27/19 History lisinopriL [Zestril] 5 mg PO QDAY 05/26/18 07/29/21 02/27/19 History Paliperidone Palmitate [Invega 156 mg IM QMONTH 02/28/19 07/29/21 02/12/19 History Sustenna] [place] Carbonate [Eskalith] 150 mg PO BID 07/29/21 07/29/21 Unknown History Sertraline [Zoloft] 25 mg PO QDAY 07/29/21 07/29/21 Unknown History buPROPion [Wellbutrin] 75 mg PO BID 07/29/21 07/29/21 Unknown History Mental Status Exam - Vital signs Last Vital Signs Temp 97.6 F 07/29/21 10:57 Pulse 96 H 07/29/21 10:57 Resp 18 07/29/21 10:57 BP 119/81 07/29/21 10:57 Pulse Ox 96 07/29/21 10:57 Results Result Diagrams: 07/28/21 09:40 07/28/21 09:40 All other labs normal.
--- NOTE | 2021-07-29 12:55 | Event Note ---
Date: 07/29/21 S: Patient requesting medication for anxiety and pacing. No events reported overnight O: Vital Signs - 8 hr 07/29/21 10:57 Temperature 97.6 F Pulse Rate 96 H Respiratory 18 Rate Blood Pressure 119/81 [Left] O2 Sat by Pulse 96 Oximetry A: Suicidal ideation P: Awaiting psych eval
[2021-07-29] MEDS ORDERED: hydrOXYzine PAMOATE 25 MG CAP PO PRN (12:57)
[2021-07-29] MEDS: SERTRALINE 25 MG TAB PO SCH (17:57)
[2021-07-29] MEDS ORDERED: LORazepam 2 MG/ML VIAL IM PRN (18:21)
[2021-07-30] MEDS: SERTRALINE 25 MG TAB PO SCH (09:41)
[2021-07-30] MEDS: LITHIUM CARBONATE 150 MG CAP PO SCH ×2 (09:41)
[2021-07-30] MEDS ORDERED: LORazepam 1 MG TAB PO STA (21:24)
[2021-07-31] MEDS: LITHIUM CARBONATE 150 MG CAP PO SCH (01:06)
[2021-07-31 03:44] VITALS: BP 103/64
== END 2021-07-31 07:32 ==
LOC: ED 08:27
DX: R45.851 Suicidal ideations (principal); F25.9 Schizoaffective disorder, unspecified; F17.200 Nicotine dependence, unspecified, uncomplicated; F10.20 Alcohol dependence, uncomplicated; Z20.822 Contact with and (suspected) exposure to COVID-19
CPT/HCPCS: 36415; 80053; 80307; 81001; 85025; 96372; 99285; J2060; Q0177; U0003; 80320; G0480